=== PATIENT | male | born 1975 | race Caucasian/White ===

== ENCOUNTER 2023-07-26 14:15 | Emergency (ER) | payer OTHER ==
[~2023-07-26] VITALS: Ht 165.1 cm; Wt 105.0 kg
[2023-07-26 14:21] VITALS: BP 150/91; PULSE 112; RESP 18; TEMP 97; O2SAT 95
[2023-07-26] MEDS ORDERED: MUPI22OI30 TP (17:04)
[2023-07-26] MEDS ORDERED: TRIA15OI9 TOP (17:04)
[2023-07-26] MEDS ORDERED: TRAM50TA2 PO ×2 (17:04→17:32)
== END 2023-07-26 17:42 | disposition home or self-care (01) ==
LOC: ER 14:16
DX: S99.921A Unspecified injury of right foot, initial encounter (principal); L03.031 Cellulitis of right toe; E10.9 Type 1 diabetes mellitus without complications; Z88.2 Allergy status to sulfonamides; Z88.1 Allergy status to other antibiotic agents; Z79.899 Other long term (current) drug therapy; X58.XXXA Exposure to other specified factors, initial encounter; Y93.89 Activity, other specified; Y92.89 Other specified places as the place of occurrence of the external cause; Y99.8 Other external cause status
CPT/HCPCS: 73630; 99283; L3260

== ENCOUNTER 2023-10-05 15:49 | Emergency (ER) | payer OTHER ==
[~2023-10-05] VITALS: Ht 165.1 cm; Wt 91.4 kg
[~2023-10-05 15:49] MED LIST: TRAM50TA2 PO; TRIA15OI9 TOP
[2023-10-05 15:58] VITALS: TEMP 97.7
[2023-10-05 19:21] LABS: BASOPHILS # (AUTO) 0.1 X10'3 (0-0.2); BASOPHILS % (AUTO) 0.5 % (0-1); EOSINOPHILS # (AUTO) 0.1 X10'3 (0-0.9); EOSINOPHILS % (AUTO) 1.4 % (0-6); HEMATOCRIT 47.2 % (42.0-52.0); HEMOGLOBIN 16.2 g/dl (14.0-17.9); LYMPHOCYTES # (AUTO) 3.3 X10'3 (1.1-4.8); LYMPHOCYTES % (AUTO) 32.9 % (21-51); MEAN CORPUSCULAR HEMOGLOBIN 30.5 PG (27.0-31.0); MEAN CORPUSCULAR HGB CONC 34.4 g/dL (33.0-36.5); MEAN CORPUSCULAR VOLUME 88.7 FL (78-98); MEAN PLATELET VOLUME 8.4 FL (7.4-10.4); MONOCYTES # (AUTO) 0.8 X10'3 (0-0.9); MONOCYTES % (AUTO) 7.6 % (2-12); NEUTROPHILS # (AUTO) 5.8 X10'3 (1.8-7.7); NEUTROPHILS % (AUTO) 57.6 % (42-75); PLATELET COUNT 279 X10'3 (140-440); RED BLOOD COUNT 5.33 X10'6 (4.70-6.10); WHITE BLOOD COUNT 10.1 X10'3 (4.5-11.0)
[2023-10-05 19:40] LABS: ALANINE AMINOTRANSFERASE 59 U/L (12-78); ALKALINE PHOSPHATASE 95 IU/L (46-116); ANION GAP 7 (8-16); ASPARTATE AMINO TRANSFERASE 39 U/L (10-37); BILIRUBIN,TOTAL 0.4 MG/DL (0.1-1.0); BLOOD UREA NITROGEN 9 MG/DL (7-18); BUN/CREATININE RATIO 11.8 (10.0-20.0); CALCIUM 9.5 MG/DL (8.5-10.1); CHLORIDE 97 MMOL/L (99-107); CREATININE 0.76 MG/DL (0.60-1.10); GLUCOSE 274 MG/DL (70-104); MAGNESIUM 1.9 MG/DL (1.5-2.4); POTASSIUM 3.8 MMOL/L (3.5-5.1); SODIUM 134 MMOL/L (135-145); TOTAL CARBON DIOXIDE 29.6 MMOL/L (24-32); TOTAL PROTEIN 8.1 G/DL (6.4-8.2); eCRCL 101 ML/MIN; eGFR > 90 ML/MIN
[2023-10-05] MEDS ORDERED: CefTRIAXone 2gm/D5W 50ml BAG 50 ML IV SCH (20:15)
[2023-10-05] MEDS ORDERED: CEPH250T PO (20:16)
[2023-10-05] MEDS ORDERED: CefTRIAXone 2gm/D5W 50ml BAG 50 ML IV ONE (20:21)
--- NOTE | 2023-10-05 20:35 | NUR ---
IV INFILTRATED, UNABLE TO FLUSH TO START ROCEPHIN. ATTEMPTED 2ND IV PLACEMENT BUT UNSUCCESSFUL. SPOKE WITH DR COPELAND AND ARCELIA TO SWITCH IV ROCHEPIN TO IM ROCEHIN ADMINISTRATION WITH LIDOCAINE.
[2023-10-05 20:36] VITALS: BP 136/78; PULSE 92; RESP 18; O2SAT 96
[2023-10-05] MEDS ORDERED: CefTRIAXone 1000mg IM Kit (w/lidocaine diluent) IM ONE (20:40)
--- NOTE | 2023-10-05 20:55 | NUR ---
I have reviewed and agree with all assessments performed and documented by Ina.
== END 2023-10-05 21:02 | disposition home or self-care (01) ==
LOC: ER 15:50
DX: G62.9 Polyneuropathy, unspecified (principal)
CPT/HCPCS: 36415; 71045; 80053; 82948; 83605; 83735; 84145; 85025; 87040; 93005; 96372; 99285; J0696

== ENCOUNTER 2024-01-21 17:00 | Inpatient (IN) | payer OTHER ==
[~2024-01-21] VITALS: Ht 165.1 cm; Wt 91.3 kg
[~2024-01-21 17:00] MED LIST changes: +CEPH250T PO
[2024-01-21 18:06] LABS: BASOPHILS # (AUTO) 0.1 X10'3 (0-0.2); BASOPHILS % (AUTO) 0.8 % (0-1); EOSINOPHILS # (AUTO) 0.1 X10'3 (0-0.9); EOSINOPHILS % (AUTO) 1.2 % (0-6); HEMATOCRIT 42.4 % (42.0-52.0); HEMOGLOBIN 14.4 g/dl (14.0-17.9); MEAN CORPUSCULAR HEMOGLOBIN 30.1 PG (27.0-31.0); MEAN CORPUSCULAR HGB CONC 34.1 g/dL (33.0-36.5); MEAN CORPUSCULAR VOLUME 88.5 FL (78-98); MEAN PLATELET VOLUME 8.2 FL (7.4-10.4); MONOCYTES # (AUTO) 0.8 X10'3 (0-0.9); MONOCYTES % (AUTO) 8.2 % (2-12); NEUTROPHILS # (AUTO) 5.7 X10'3 (1.8-7.7); NEUTROPHILS % (AUTO) 58.8 % (42-75); PLATELET COUNT 244 X10'3 (140-440); RED BLOOD COUNT 4.79 X10'6 (4.70-6.10); WHITE BLOOD COUNT 9.8 X10'3 (4.5-11.0)
[2024-01-21 18:26] LABS: ALBUMIN 3.4 G/DL (3.4-5.0); ANION GAP 8 (8-16); BLOOD UREA NITROGEN 8 MG/DL (7-18); BUN/CREATININE RATIO 8.1 (10.0-20.0); CALCIUM 8.3 MG/DL (8.5-10.1); CHLORIDE 100 MMOL/L (99-107); CREATININE 0.99 MG/DL (0.60-1.10); POTASSIUM 3.9 MMOL/L (3.5-5.1); SODIUM 135 MMOL/L (135-145); eCRCL 78 ML/MIN; eGFR 80 ML/MIN
[2024-01-21 18:38] LABS: GLUCOSE 498 MG/DL (70-104)
[2024-01-21] MEDS ORDERED: DEXTROSE 15 GM of carb/4 tabs (each vial/BOTTLE has 4 tablets) PO PRN ×2 (19:15)
[2024-01-21] MEDS ORDERED: dextrose 50%-water 50ml dispensing syringe IV PRN ×2 (19:15)
[2024-01-21] MEDS ORDERED: glucagon, human recombinant 1mg kit SUBCUT PRN (19:15)
[2024-01-21 19:28] LABS: C-REACTIVE PROTEIN 0.71 MG/DL (0.0-0.5)
[2024-01-21] MEDS: normal saline 1000ml 1,000 ML IV ONE (20:05)
[2024-01-21] MEDS ORDERED: temazepam 15mg capsule PO PRN (21:00)
[2024-01-21] MEDS: normal saline 1000ML IV soln IVB ONE (21:14)
[2024-01-21] MEDS: piperacillin/tazo 3.375gm/50ml 50 ML IV ONE (21:15)
[2024-01-21] MEDS ORDERED: magnesium 4gm in 100ml NS 100 ML IV PRN (21:50)
[2024-01-21] MEDS ORDERED: magnesium Cl slow-release 64mg tablet PO PRN (21:50)
[2024-01-21] MEDS ORDERED: potassium Cl 40MEQ/1/2NS 520ml 520 ML IV PRN (21:50)
[2024-01-21] MEDS ORDERED: potassium Cl 20 mEq SR tablet PO PRN ×2 (21:50)
[2024-01-21] MEDS ORDERED: morphine 2 MG/ML inj. syringe IV PRN (21:50)
[2024-01-21] MEDS ORDERED: magnesium hydroxide 30ml (MOM) UD suspension PO PRN (21:50)
[2024-01-21] MEDS ORDERED: ondansetron/PF 4mg/2ml inj IV PRN (21:50)
[2024-01-21] MEDS ORDERED: mag hydrox/Alum hydrox/simeth 30ml oral suspension PO PRN (21:50)
[2024-01-21 22:17] LABS: HEMOGLOBIN A1C 11.3 % (4.5-6.2)
[2024-01-21] MEDS: insulin glargine (Lantus) pen - multi-dose SQ SCH (22:24)
[2024-01-21] MEDS: insulin Lispro (HumaLOG) vial - multi-dose SQ SCH (22:30)
[2024-01-21] MEDS: vancomycin/NS 1 GM ADD-VANTAGE 250 ML IV ONE (22:32)
[2024-01-21 23:30] VITALS: BP 139/88; PULSE 93; RESP 16; TEMP 98.3; O2SAT 93; O2SAT 96
[2024-01-22] VITALS (7 sets, daily range): BP systolic 112–128; BP diastolic 73–76; PULSE 80–92; RESP 16–18; TEMP 97.7–98.4; O2SAT 92–97
[2024-01-22] MEDS: VANCOMYCIN 750MG IV in NS 250 ML IV ONE (00:30)
[2024-01-22] MEDS: normal saline 1000ml 1,000 ML IV SCH (00:32)
[2024-01-22] MEDS: HYDROcodone/acetaminophen 5mg/325mg tablet PO PRN (00:38)
[2024-01-22] MEDS ORDERED: DEXTROSE 15 GM of carb/4 tabs (each vial/BOTTLE has 4 tablets) PO PRN ×2 (01:10)
[2024-01-22] MEDS: MESSAGE TO PHARMACY PO ONE (01:10)
[2024-01-22] MEDS ORDERED: glucagon, human recombinant 1mg kit SUBCUT PRN (01:10)
[2024-01-22] MEDS ORDERED: insulin Lispro (HumaLOG) vial - multi-dose SQ SCH (01:10)
[2024-01-22] MEDS ORDERED: dextrose 50%-water 50ml dispensing syringe IV PRN ×2 (01:10)
[2024-01-22] MEDS: piperacillin/tazo 4.5gm/100ml 100 ML IV SCH (03:06)
[2024-01-22 07:38] LABS: BASOPHILS % (AUTO) 0.4 % (0-1); EOSINOPHILS # (AUTO) 0.1 X10'3 (0-0.9); EOSINOPHILS % (AUTO) 1.6 % (0-6); HEMOGLOBIN 13.7 g/dl (14.0-17.9); LYMPHOCYTES # (AUTO) 2.7 X10'3 (1.1-4.8); LYMPHOCYTES % (AUTO) 32.1 % (21-51); MEAN CORPUSCULAR HEMOGLOBIN 30.2 PG (27.0-31.0); MEAN CORPUSCULAR HGB CONC 34.3 g/dL (33.0-36.5); MEAN CORPUSCULAR VOLUME 88.2 FL (78-98); MONOCYTES # (AUTO) 0.8 X10'3 (0-0.9); MONOCYTES % (AUTO) 9.5 % (2-12); NEUTROPHILS # (AUTO) 4.8 X10'3 (1.8-7.7); NEUTROPHILS % (AUTO) 56.4 % (42-75); PLATELET COUNT 239 X10'3 (140-440); RED BLOOD COUNT 4.53 X10'6 (4.70-6.10); WHITE BLOOD COUNT 8.4 X10'3 (4.5-11.0)
[2024-01-22 07:54] LABS: ALBUMIN 2.9 G/DL (3.4-5.0); ANION GAP 6 (8-16); BLOOD UREA NITROGEN 9 MG/DL (7-18); BUN/CREATININE RATIO 12.9 (10.0-20.0); CALCIUM 7.6 MG/DL (8.5-10.1); CHLORIDE 107 MMOL/L (99-107); CHOL/HDL RATIO 4.9 (0.00-4.99); CHOLESTEROL 177 MG/DL (0-200); GLUCOSE 276 MG/DL (70-104); HDL CHOLESTEROL 36 MG/DL (35-60); LDL CHOLESTEROL 95 MG/DL (50-100); POTASSIUM 3.8 MMOL/L (3.5-5.1); SODIUM 138 MMOL/L (135-145); TOTAL CARBON DIOXIDE 24.9 MMOL/L (24-32); TRIGLYCERIDES 285 MG/DL (20-135); eCRCL 110 ML/MIN; eGFR > 90 ML/MIN
[2024-01-22 08:58] LABS: APTT 24 SECONDS (22-32); PROTHROMBIN TIME 10.4 SECONDS (9.0-12.0)
[2024-01-22] MEDS: heparin, porcine 5000 units/ml vial SQ SCH (09:49)
[2024-01-22] MEDS: lisinopril 10 MG tablet PO SCH (09:50)
[2024-01-22] MEDS: docusate sod 100mg capsule PO SCH (09:52)
[2024-01-22] MEDS: insulin glargine (Lantus) pen - multi-dose SQ SCH (10:01)
[2024-01-22] MEDS ORDERED: VANCOmycin 1250MG/NS 250ml Bag 250 ML IV SCH (11:00)
[2024-01-22] MEDS ORDERED: iohexol 350MG/ML 100ml bottle IV ONE (14:59)
[2024-01-22] MEDS ORDERED: LISI10TA27 PO (15:52)
[2024-01-22] MEDS ORDERED: METF-438 PO (15:54)
[2024-01-22] MEDS ORDERED: NPH,100I SQ (15:54)
[2024-01-22] MEDS ORDERED: INSU100V5 (15:54)
[2024-01-22 16:44] LABS: BILIRUBIN,URINE NEGATIVE (Neg); CLARITY,URINE CLEAR (Clear); COLOR,URINE YELLOW (Yellow); GLUCOSE, URINE >=1000 mg/dl (Neg); KETONES,URINE TRACE mg/dl (Neg); LEUKOCYTE ESTERASE ,URINE NEGATIVE (Neg); NITRITES, URINE NEGATIVE (Neg); OCCULT BLOOD,URINE NEGATIVE (Neg); PROTEIN,URINE NEGATIVE (Neg)
[2024-01-22 16:51] LABS: UA COLLECTION TYPE CLN CATCH MIDSTREAM
[2024-01-22 16:52] LABS: BACTERIA,URINE NONE SEEN /HPF (Neg); RBC,URINE 0-2 /HPF (0-2); SQUAMOUS EPITHELIAL CELL,UR FEW /LPF (FEW); WBC,URINE 0-4 /HPF (0-4)
[2024-01-22 16:53] LABS: URINE AMPHETAMINE SCREEN NEGATIVE (Neg); URINE METHADONE SCREEN NEGATIVE (Neg)
[2024-01-22 16:54] LABS: URINE BARBITUATE SCREEN NEGATIVE (Neg); URINE BENZODIAZEPINES SCREEN NEGATIVE (Neg); URINE CANNABINOID SCREEN NEGATIVE (Neg); URINE COCAINE SCREEN NEGATIVE (Neg); URINE OPIATE SCREEN POSITIVE (Neg); URINE PHENCYCLIDINE SCREEN NEGATIVE (Neg)
[2024-01-22] MEDS: acetaminophen 325mg tablet PO PRN (19:48)
[2024-01-22] MEDS: atorvastatin 20mg tablet PO SCH (19:48)
[2024-01-22] MEDS ORDERED: insulin glargine (Lantus) pen - multi-dose SQ SCH (21:00)
[2024-01-23 02:04] LABS: BASOPHILS % (AUTO) 0.4 % (0-1); EOSINOPHILS # (AUTO) 0.2 X10'3 (0-0.9); EOSINOPHILS % (AUTO) 1.8 % (0-6); HEMATOCRIT 39.8 % (42.0-52.0); HEMOGLOBIN 13.6 g/dl (14.0-17.9); LYMPHOCYTES # (AUTO) 3.3 X10'3 (1.1-4.8); MEAN CORPUSCULAR HEMOGLOBIN 30.2 PG (27.0-31.0); MEAN CORPUSCULAR HGB CONC 34.1 g/dL (33.0-36.5); MEAN CORPUSCULAR VOLUME 88.4 FL (78-98); MEAN PLATELET VOLUME 7.9 FL (7.4-10.4); MONOCYTES # (AUTO) 0.8 X10'3 (0-0.9); MONOCYTES % (AUTO) 9.2 % (2-12); NEUTROPHILS # (AUTO) 4.5 X10'3 (1.8-7.7); NEUTROPHILS % (AUTO) 50.6 % (42-75); PLATELET COUNT 240 X10'3 (140-440); RED CELL DISTRIBUTION WIDTH 13.2 % (11.5-14.5); WHITE BLOOD COUNT 8.8 X10'3 (4.5-11.0)
[2024-01-23 02:19] LABS: ALBUMIN 2.7 G/DL (3.4-5.0); ANION GAP 4 (8-16); BLOOD UREA NITROGEN 11 MG/DL (7-18); BUN/CREATININE RATIO 13.9 (10.0-20.0); CALCIUM 8.5 MG/DL (8.5-10.1); CHLORIDE 106 MMOL/L (99-107); CREATININE 0.79 MG/DL (0.60-1.10); GLUCOSE 178 MG/DL (70-104); POTASSIUM 3.9 MMOL/L (3.5-5.1); SODIUM 140 MMOL/L (135-145); TOTAL CARBON DIOXIDE 29.7 MMOL/L (24-32); eCRCL 97 ML/MIN; eGFR > 90 ML/MIN
[2024-01-23 06:00] VITALS: BP 120/80; PULSE 81; RESP 16; TEMP 97.8; O2SAT 95
[2024-01-23 08:30] VITALS: RESP 18; O2SAT 96
[2024-01-23 10:00] VITALS: BP 142/78; PULSE 93; RESP 16; TEMP 98; O2SAT 95
[2024-01-23] MEDS ORDERED: ATOR20TA66 PO (12:01)
[2024-01-23] MEDS ORDERED: MESSAGE TO NURSING PO NR (15:38)
== END 2024-01-23 15:38 | disposition home health service (06) | DRG 872 ==
LOC: ER 17:01 → ED HOLD 21:56 → SUR 3N 23:43
PROVIDERS: ADMIT Surgery Surgical Critical Care; ATTEND Internal Medicine
PROC: BW211ZZ Computerized Tomography (CT Scan) of Abdomen and Pelvis using Low Osmolar Contrast (ICD-10-PCS; principal; 2024-01-22)
DX: A41.9 Sepsis, unspecified organism (principal); E11.621 Type 2 diabetes mellitus with foot ulcer; E11.42 Type 2 diabetes mellitus with diabetic polyneuropathy; I25.10 Atherosclerotic heart disease of native coronary artery without angina pectoris; I10 Essential (primary) hypertension; J44.9 Chronic obstructive pulmonary disease, unspecified; F41.9 Anxiety disorder, unspecified; L40.9 Psoriasis, unspecified; E78.00 Pure hypercholesterolemia, unspecified; S91.301A Unspecified open wound, right foot, initial encounter; L97.519 Non-pressure chronic ulcer of other part of right foot with unspecified severity; X58.XXXA Exposure to other specified factors, initial encounter; Y93.89 Activity, other specified; Y92.89 Other specified places as the place of occurrence of the external cause; Y99.8 Other external cause status; Z88.1 Allergy status to other antibiotic agents; Z79.84 Long term (current) use of oral hypoglycemic drugs; Z79.4 Long term (current) use of insulin; Z88.2 Allergy status to sulfonamides; Z88.8 Allergy status to other drugs, medicaments and biological substances; Z79.899 Other long term (current) drug therapy
CPT/HCPCS: 36415; 71045; 73630; 74174; 80048; 80061; 80202; 80305; 81001; 82948; 83036; 83605; 83880; 84145; 85025; 85610; 85651; 85730; 86140; 87040; 87081; 93970; 96360; 99285; A6258; G0378; J1644; J1815; J2543; J3370; J3490; J7030; J7050; Q9967

== ENCOUNTER 2024-03-02 14:52 | Inpatient (IN) | payer OTHER ==
[~2024-03-02] VITALS: Ht 165.1 cm; Wt 86.4 kg
[~2024-03-02 14:52] MED LIST changes: +ATOR20TA66 PO; -CEPH250T PO; +INSU100V5; +LISI10TA27 PO; +METF-438 PO; +NPH,100I SQ
[2024-03-02 15:44] LABS: BASOPHILS % (AUTO) 0.3 % (0-1); EOSINOPHILS % (AUTO) 0.3 % (0-6); HEMATOCRIT 44.5 % (42.0-52.0); HEMOGLOBIN 15.3 g/dl (14.0-17.9); LYMPHOCYTES # (AUTO) 2.3 X10'3 (1.1-4.8); LYMPHOCYTES % (AUTO) 17.2 % (21-51); MEAN CORPUSCULAR HEMOGLOBIN 30.3 PG (27.0-31.0); MEAN CORPUSCULAR HGB CONC 34.4 g/dL (33.0-36.5); MEAN CORPUSCULAR VOLUME 88.3 FL (78-98); MONOCYTES # (AUTO) 1.3 X10'3 (0-0.9); MONOCYTES % (AUTO) 9.9 % (2-12); NEUTROPHILS # (AUTO) 9.5 X10'3 (1.8-7.7); NEUTROPHILS % (AUTO) 72.3 % (42-75); PLATELET COUNT 261 X10'3 (140-440); RED BLOOD COUNT 5.04 X10'6 (4.70-6.10); RED CELL DISTRIBUTION WIDTH 13.1 % (11.5-14.5); WHITE BLOOD COUNT 13.2 X10'3 (4.5-11.0)
[2024-03-02 16:01] LABS: ALANINE AMINOTRANSFERASE 35 U/L (12-78); ALBUMIN 3.3 G/DL (3.4-5.0); ALBUMIN/GLOBULIN RATIO 0.7 (1.1-1.5); ALKALINE PHOSPHATASE 95 IU/L (46-116); ANION GAP 11 (8-16); ASPARTATE AMINO TRANSFERASE 19 U/L (10-37); BILIRUBIN,TOTAL 0.6 MG/DL (0.1-1.0); BLOOD UREA NITROGEN 13 MG/DL (7-18); BUN/CREATININE RATIO 12.3 (10.0-20.0); C-REACTIVE PROTEIN 24.09 MG/DL (0.0-0.5); CALCIUM 9.3 MG/DL (8.5-10.1); CHLORIDE 95 MMOL/L (99-107); CREATININE 1.06 MG/DL (0.60-1.10); POTASSIUM 3.8 MMOL/L (3.5-5.1); SODIUM 132 MMOL/L (135-145); TOTAL CARBON DIOXIDE 25.6 MMOL/L (24-32); TOTAL PROTEIN 7.9 G/DL (6.4-8.2); eCRCL 73 ML/MIN; eGFR 74 ML/MIN
[2024-03-02 16:06] LABS: GLUCOSE 442 MG/DL (70-104)
[2024-03-02] MEDS ORDERED: acetaminophen 325mg tablet PO PRN ×2 (17:10)
[2024-03-02] MEDS ORDERED: acetaminophen 650mg rectal suppository RC PRN (17:10)
[2024-03-02] MEDS ORDERED: ondansetron 4mg rapidly disintigrating tab PO PRN (17:10)
[2024-03-02] MEDS ORDERED: diphenhydrAMINE 50 mg/ml inj IV PRN (17:10)
[2024-03-02] MEDS ORDERED: bisacodyl 10mg suppository rectal RC PRN (17:10)
[2024-03-02] MEDS ORDERED: diphenhydrAMINE 25mg capsule PO PRN (17:10)
[2024-03-02] MEDS ORDERED: magnesium hydroxide 30ml (MOM) UD suspension PO PRN (17:10)
[2024-03-02] MEDS: normal saline 1000ml 1,000 ML IV SCH (17:10)
[2024-03-02] MEDS ORDERED: morphine 2 MG/ML inj. syringe IV PRN ×2 (17:10)
[2024-03-02] MEDS ORDERED: mag hydrox/Alum hydrox/simeth 30ml oral suspension PO PRN (17:10)
[2024-03-02] MEDS ORDERED: glucagon, human recombinant 1mg kit SUBCUT PRN (17:40)
[2024-03-02] MEDS ORDERED: dextrose 50%-water 50ml dispensing syringe IV PRN ×2 (17:40)
[2024-03-02] MEDS ORDERED: DEXTROSE 15 GM of carb/4 tabs (each vial/BOTTLE has 4 tablets) PO PRN ×2 (17:40)
[2024-03-02 17:46] LABS: APTT 25 SECONDS (22-32); PROTHROMBIN TIME 10.8 SECONDS (9.0-12.0)
[2024-03-02 18:06] LABS: HEMOGLOBIN A1C 11.1 % (4.5-6.2)
[2024-03-02 18:09] LABS: MAGNESIUM 1.6 MG/DL (1.5-2.4); PHOSPHORUS 2.7 MG/DL (2.3-4.5); PRO BRAIN NATRIURETIC PEPTIDE 208 PG/ML (0-125)
[2024-03-02] MEDS: vancomycin/NS 1 GM ADD-VANTAGE 250 ML X 1 DOSE IV ONE (18:11)
[2024-03-02 19:20] LABS: CREATINE KINASE 82 U/L (39-308); LIPASE 44 U/L (16-77); THYROID STIMULATING HORMONE 2.48 ulU/ml (0.34-4.50)
[2024-03-02] MEDS: piperacillin/tazo 3.375gm/50ml 50 ML IV ONE (19:51)
[2024-03-02] MEDS: docusate sod 100mg capsule PO SCH (20:00)
[2024-03-02] MEDS ORDERED: VANCOMYCIN 1,500MG inj. 1,500 MG in normal saline 500ml IV soln 300 ML IV ONE (20:00)
[2024-03-02] MEDS ORDERED: vancomycin/NS 1 GM ADD-VANTAGE 250 ML IV SCH (20:00)
[2024-03-02] MEDS: HYDROcodone/acetaminophen 10/325mg tab PO PRN (20:52)
[2024-03-02] MEDS ORDERED: temazepam 15mg capsule PO PRN (21:00)
[2024-03-02 21:40] VITALS: BP 123/82; PULSE 101; RESP 16; TEMP 98.5; O2SAT 97
[2024-03-02] MEDS: insulin Lispro (HumaLOG) vial - multi-dose SQ SCH (21:48)
[2024-03-02] MEDS: insulin glargine (Lantus) pen - multi-dose SQ SCH (21:50)
[2024-03-02 22:05] VITALS: BP 132/83; PULSE 102; RESP 16; TEMP 96.5; O2SAT 95
[2024-03-02] MEDS: pneumococcal 23-VAL P-sac vacc 25 mcg/0.5ml vial IMVAC ONE (23:15)
[2024-03-02] MEDS: piperacillin/tazo 4.5gm/100ml 100 ML IV SCH (23:56)
[2024-03-02] MEDS: heparin, porcine 5000 units/ml vial SQ SCH (23:59)
[2024-03-03] VITALS (8 sets, daily range): BP systolic 107–128; BP diastolic 67–81; PULSE 87–100; RESP 13–18; TEMP 96–98.3; O2SAT 94–97
[2024-03-03 00:08] LABS: BILIRUBIN,URINE NEGATIVE (Neg); CLARITY,URINE CLEAR (Clear); COLOR,URINE YELLOW (Yellow); GLUCOSE, URINE >=1000 mg/dl (Neg); KETONES,URINE 15 mg/dl (Neg); LEUKOCYTE ESTERASE ,URINE NEGATIVE (Neg); NITRITES, URINE NEGATIVE (Neg); OCCULT BLOOD,URINE NEGATIVE (Neg); PH,URINE 5.5 (4.8-8.0); PROTEIN,URINE NEGATIVE (Neg); UROBILINOGEN,URINE 0.2 E.U/dL (0.2-1.0)
[2024-03-03 00:14] LABS: UA COLLECTION TYPE VOIDED
[2024-03-03 00:32] LABS: MUCUS STRANDS FEW /LPF (Neg)
[2024-03-03 00:33] LABS: SQUAMOUS EPITHELIAL CELL,UR FEW /LPF (FEW)
[2024-03-03 00:34] LABS: BACTERIA,URINE FEW /HPF (Neg); RBC,URINE 0-2 /HPF (0-2); TRANSITIONAL EPI CELLS,URINE FEW /HPF; WBC,URINE 0-4 /HPF (0-4)
[2024-03-03 00:35] LABS: COARSE GRANULAR CAST 0-3 /LPF (NEGATIVE)
[2024-03-03] MEDS: HYDROcodone/acetaminophen 5mg/325mg tablet PO PRN (01:29)
[2024-03-03] MEDS: VANCOmycin 1250MG/NS 250ml Bag 250 ML IV SCH (05:08)
[2024-03-03 06:38] LABS: BASOPHILS % (AUTO) 0.4 % (0-1); EOSINOPHILS # (AUTO) 0.1 X10'3 (0-0.9); EOSINOPHILS % (AUTO) 1.2 % (0-6); HEMATOCRIT 40.6 % (42.0-52.0); HEMOGLOBIN 14.2 g/dl (14.0-17.9); LYMPHOCYTES # (AUTO) 2.2 X10'3 (1.1-4.8); LYMPHOCYTES % (AUTO) 20.9 % (21-51); MEAN CORPUSCULAR HEMOGLOBIN 30.6 PG (27.0-31.0); MEAN CORPUSCULAR HGB CONC 34.8 g/dL (33.0-36.5); MEAN CORPUSCULAR VOLUME 87.9 FL (78-98); MONOCYTES # (AUTO) 1.4 X10'3 (0-0.9); MONOCYTES % (AUTO) 13.2 % (2-12); NEUTROPHILS # (AUTO) 6.7 X10'3 (1.8-7.7); NEUTROPHILS % (AUTO) 64.3 % (42-75); PLATELET COUNT 229 X10'3 (140-440); RED BLOOD COUNT 4.62 X10'6 (4.70-6.10); WHITE BLOOD COUNT 10.4 X10'3 (4.5-11.0)
[2024-03-03 07:06] LABS: ALANINE AMINOTRANSFERASE 31 U/L (12-78); ALBUMIN 2.7 G/DL (3.4-5.0); ALBUMIN/GLOBULIN RATIO 0.6 (1.1-1.5); ALKALINE PHOSPHATASE 82 IU/L (46-116); ANION GAP 8 (8-16); ASPARTATE AMINO TRANSFERASE 22 U/L (10-37); BILIRUBIN,TOTAL 0.6 MG/DL (0.1-1.0); BLOOD UREA NITROGEN 12 MG/DL (7-18); CALCIUM 8.9 MG/DL (8.5-10.1); CHLORIDE 99 MMOL/L (99-107); CHOL/HDL RATIO 4.2 (0.00-4.99); CHOLESTEROL 150 MG/DL (0-200); GLUCOSE 289 MG/DL (70-104); HDL CHOLESTEROL 36 MG/DL (35-60); LDL CHOLESTEROL 73 MG/DL (50-100); POTASSIUM 3.6 MMOL/L (3.5-5.1); SODIUM 135 MMOL/L (135-145); TOTAL CARBON DIOXIDE 28.5 MMOL/L (24-32); TOTAL PROTEIN 6.9 G/DL (6.4-8.2); TRIGLYCERIDES 299 MG/DL (20-135); eCRCL 96 ML/MIN; eGFR > 90 ML/MIN
[2024-03-03] MEDS: pantoprazole 40mg Tablet.DR PO SCH (07:19)
[2024-03-03] MEDS ORDERED: GADOTERATE MEGLUMINE 7.5 MMOL/15 ML VIAL IV ONE (12:33)
[2024-03-03] MEDS: pneumococcal 23-VAL P-sac vacc 25 mcg/0.5ml vial IMVAC ONE (14:00)
[2024-03-03] MEDS: vancomycin/NS 1 GM ADD-VANTAGE 250 ML IV SCH (14:15)
[2024-03-03] MEDS: insulin Lispro (HumaLOG) vial - multi-dose SQ SCH (17:18)
[2024-03-03] MEDS: ondansetron/PF 4mg/2ml inj IV PRN (20:23)
[2024-03-04 06:00] VITALS: BP 115/71; PULSE 89; RESP 13; TEMP 96.2; O2SAT 94
[2024-03-04 06:01] LABS: BASOPHILS % (AUTO) 0.3 % (0-1); EOSINOPHILS # (AUTO) 0.2 X10'3 (0-0.9); EOSINOPHILS % (AUTO) 1.7 % (0-6); HEMATOCRIT 37.2 % (42.0-52.0); HEMOGLOBIN 12.8 g/dl (14.0-17.9); LYMPHOCYTES # (AUTO) 1.8 X10'3 (1.1-4.8); LYMPHOCYTES % (AUTO) 19.1 % (21-51); MEAN CORPUSCULAR HEMOGLOBIN 30.5 PG (27.0-31.0); MEAN CORPUSCULAR HGB CONC 34.5 g/dL (33.0-36.5); MEAN CORPUSCULAR VOLUME 88.4 FL (78-98); MEAN PLATELET VOLUME 7.9 FL (7.4-10.4); MONOCYTES # (AUTO) 1.2 X10'3 (0-0.9); MONOCYTES % (AUTO) 12.2 % (2-12); NEUTROPHILS # (AUTO) 6.3 X10'3 (1.8-7.7); NEUTROPHILS % (AUTO) 66.7 % (42-75); PLATELET COUNT 234 X10'3 (140-440); RED BLOOD COUNT 4.21 X10'6 (4.70-6.10); RED CELL DISTRIBUTION WIDTH 12.9 % (11.5-14.5); WHITE BLOOD COUNT 9.5 X10'3 (4.5-11.0)
[2024-03-04 06:22] LABS: ALANINE AMINOTRANSFERASE 30 U/L (12-78); ALBUMIN 2.4 G/DL (3.4-5.0); ALBUMIN/GLOBULIN RATIO 0.6 (1.1-1.5); ALKALINE PHOSPHATASE 79 IU/L (46-116); ANION GAP 8 (8-16); ASPARTATE AMINO TRANSFERASE 17 U/L (10-37); BILIRUBIN,TOTAL 0.5 MG/DL (0.1-1.0); BLOOD UREA NITROGEN 11 MG/DL (7-18); BUN/CREATININE RATIO 16.4 (10.0-20.0); CALCIUM 8.4 MG/DL (8.5-10.1); CHLORIDE 103 MMOL/L (99-107); CREATININE 0.67 MG/DL (0.60-1.10); GLUCOSE 236 MG/DL (70-104); POTASSIUM 3.6 MMOL/L (3.5-5.1); SODIUM 138 MMOL/L (135-145); TOTAL CARBON DIOXIDE 27.2 MMOL/L (24-32); TOTAL PROTEIN 6.3 G/DL (6.4-8.2); eCRCL 115 ML/MIN; eGFR > 90 ML/MIN
[2024-03-04 10:00] VITALS: BP 102/63; PULSE 93; RESP 16; TEMP 98.9; O2SAT 96
[2024-03-04] MEDS: VANCOMYCIN LEVEL IV ONE (12:35)
[2024-03-04 18:00] VITALS: BP 115/72; PULSE 83; RESP 20; TEMP 98.2; O2SAT 95
[2024-03-04 20:20] VITALS: RESP 18
[2024-03-04] MEDS: VANCOmycin 1250MG/NS 250ml Bag 250 ML IV SCH (21:21)
[2024-03-04 22:00] VITALS: BP 120/77; PULSE 87; RESP 16; TEMP 98.5; O2SAT 93
[2024-03-05 05:30] VITALS: BP 133/83; PULSE 90; RESP 16; TEMP 98; O2SAT 98
[2024-03-05 06:35] LABS: BASOPHILS # (AUTO) 0.1 X10'3 (0-0.2); BASOPHILS % (AUTO) 0.9 % (0-1); EOSINOPHILS # (AUTO) 0.1 X10'3 (0-0.9); EOSINOPHILS % (AUTO) 1.2 % (0-6); HEMATOCRIT 39.2 % (42.0-52.0); HEMOGLOBIN 13.7 g/dl (14.0-17.9); LYMPHOCYTES # (AUTO) 2.5 X10'3 (1.1-4.8); LYMPHOCYTES % (AUTO) 25.3 % (21-51); MEAN CORPUSCULAR HEMOGLOBIN 30.5 PG (27.0-31.0); MEAN CORPUSCULAR HGB CONC 34.9 g/dL (33.0-36.5); MEAN CORPUSCULAR VOLUME 87.4 FL (78-98); MEAN PLATELET VOLUME 8.4 FL (7.4-10.4); MONOCYTES % (AUTO) 10.4 % (2-12); NEUTROPHILS # (AUTO) 6.2 X10'3 (1.8-7.7); NEUTROPHILS % (AUTO) 62.2 % (42-75); PLATELET COUNT 263 X10'3 (140-440); RED BLOOD COUNT 4.49 X10'6 (4.70-6.10); RED CELL DISTRIBUTION WIDTH 12.9 % (11.5-14.5); WHITE BLOOD COUNT 9.9 X10'3 (4.5-11.0)
[2024-03-05 06:54] LABS: ALANINE AMINOTRANSFERASE 31 U/L (12-78); ALBUMIN 2.6 G/DL (3.4-5.0); ALBUMIN/GLOBULIN RATIO 0.6 (1.1-1.5); ALKALINE PHOSPHATASE 92 IU/L (46-116); ANION GAP 5 (8-16); ASPARTATE AMINO TRANSFERASE 22 U/L (10-37); BILIRUBIN,TOTAL 0.4 MG/DL (0.1-1.0); BLOOD UREA NITROGEN 6 MG/DL (7-18); CALCIUM 8.7 MG/DL (8.5-10.1); CHLORIDE 102 MMOL/L (99-107); GLUCOSE 215 MG/DL (70-104); POTASSIUM 3.3 MMOL/L (3.5-5.1); SODIUM 138 MMOL/L (135-145); TOTAL PROTEIN 6.9 G/DL (6.4-8.2); eCRCL 128 ML/MIN; eGFR > 90 ML/MIN
[2024-03-05] MEDS ORDERED: HYDR-3965 PO (09:45)
[2024-03-05] MEDS ORDERED: AMOX-580 PO (09:45)
[2024-03-05 10:00] VITALS: BP 122/83; PULSE 84; RESP 16; TEMP 98.4; O2SAT 98
[2024-03-05] MEDS ORDERED: VANCOMYCIN LEVEL IV ONE (20:30)
[2024-03-10 12:21] LABS: HBSAG SCREEN Negative (Negative)
== END 2024-03-05 11:35 | disposition home health service (06) | DRG 872 ==
LOC: ER 14:53 → ED HOLD 17:13 → UNDOADMIN 17:13 → ED HOLD 20:23 → SUR 3N 21:35 → ED HOLD 21:35
PROVIDERS: ADMIT Family Medicine; ATTEND Family Medicine
PROC: 3E0334Z Introduction of Serum, Toxoid and Vaccine into Peripheral Vein, Percutaneous Approach (ICD-10-PCS; principal; 2024-03-03)
DX: A41.9 Sepsis, unspecified organism (principal); E87.1 Hypo-osmolality and hyponatremia; L03.115 Cellulitis of right lower limb; E78.5 Hyperlipidemia, unspecified; E11.42 Type 2 diabetes mellitus with diabetic polyneuropathy; G89.4 Chronic pain syndrome; E78.00 Pure hypercholesterolemia, unspecified; L40.9 Psoriasis, unspecified; K76.0 Fatty (change of) liver, not elsewhere classified; J44.9 Chronic obstructive pulmonary disease, unspecified; I10 Essential (primary) hypertension; S91.104A Unspecified open wound of right lesser toe(s) without damage to nail, initial encounter; X58.XXXA Exposure to other specified factors, initial encounter; Z88.1 Allergy status to other antibiotic agents; Z88.2 Allergy status to sulfonamides; Z91.018 Allergy to other foods; Z79.899 Other long term (current) drug therapy; Z87.891 Personal history of nicotine dependence; Z90.49 Acquired absence of other specified parts of digestive tract; Y93.89 Activity, other specified; Y92.89 Other specified places as the place of occurrence of the external cause; Y99.8 Other external cause status
CPT/HCPCS: 36415; 73720; 80053; 80061; 80202; 81001; 81003; 82550; 82948; 83036; 83605; 83690; 83735; 83880; 84100; 84443; 85025; 85610; 85651; 85730; 86140; 86706; 87040; 87081; 87340; 90732; 97161; 97530; 99285; A6250; A6449; A9575; G0378; J1644; J1815; J2405; J2543; J3370; J7030

== ENCOUNTER 2024-03-20 16:40 | Emergency (ER) | payer OTHER ==
[~2024-03-20] VITALS: Ht 172.7 cm; Wt 74.0 kg
[~2024-03-20 16:40] MED LIST changes: +AMOX-580 PO; +HYDR-3965 PO; -METF-438 PO
[2024-03-20 19:07] LABS: BASOPHILS # (AUTO) 0.1 X10'3 (0-0.2); BASOPHILS % (AUTO) 0.8 % (0-1); EOSINOPHILS # (AUTO) 0.1 X10'3 (0-0.9); EOSINOPHILS % (AUTO) 1.3 % (0-6); HEMATOCRIT 43.4 % (42.0-52.0); HEMOGLOBIN 15.1 g/dl (14.0-17.9); MEAN CORPUSCULAR HEMOGLOBIN 30.6 PG (27.0-31.0); MEAN CORPUSCULAR HGB CONC 34.8 g/dL (33.0-36.5); MEAN CORPUSCULAR VOLUME 87.7 FL (78-98); MONOCYTES % (AUTO) 8.9 % (2-12); NEUTROPHILS # (AUTO) 6.6 X10'3 (1.8-7.7); PLATELET COUNT 364 X10'3 (140-440); RED BLOOD COUNT 4.95 X10'6 (4.70-6.10); WHITE BLOOD COUNT 10.9 X10'3 (4.5-11.0)
[2024-03-20 19:21] LABS: APTT 23 SECONDS (22-32); PROTHROMBIN TIME 10.1 SECONDS (9.0-12.0)
[2024-03-20 19:35] LABS: ALANINE AMINOTRANSFERASE 32 U/L (12-78); ALBUMIN 3.9 G/DL (3.4-5.0); ALBUMIN/GLOBULIN RATIO 0.8 (1.1-1.5); ALKALINE PHOSPHATASE 106 IU/L (46-116); ANION GAP 7 (8-16); ASPARTATE AMINO TRANSFERASE 12 U/L (10-37); BILIRUBIN,TOTAL 0.5 MG/DL (0.1-1.0); BLOOD UREA NITROGEN 14 MG/DL (7-18); BUN/CREATININE RATIO 17.7 (10.0-20.0); CHLORIDE 97 MMOL/L (99-107); CREATININE 0.79 MG/DL (0.60-1.10); POTASSIUM 4.6 MMOL/L (3.5-5.1); SODIUM 134 MMOL/L (135-145); TOTAL PROTEIN 8.7 G/DL (6.4-8.2); eCRCL 107 ML/MIN; eGFR > 90 ML/MIN
[2024-03-20 19:37] LABS: GLUCOSE 421 MG/DL (70-104)
[2024-03-21] MEDS ORDERED: GABA600T13 PO (00:13)
[2024-03-21 00:29] VITALS: BP 144/84; PULSE 77; RESP 16; TEMP 97.9; O2SAT 97
== END 2024-03-21 00:30 | disposition home or self-care (01) ==
LOC: ER 16:40
DX: E11.9 Type 2 diabetes mellitus without complications (principal); G62.9 Polyneuropathy, unspecified; E78.00 Pure hypercholesterolemia, unspecified; I10 Essential (primary) hypertension; Z88.8 Allergy status to other drugs, medicaments and biological substances; Z79.899 Other long term (current) drug therapy; Z91.018 Allergy to other foods; Z91.013 Allergy to seafood
CPT/HCPCS: 36415; 80053; 83605; 84145; 85025; 85610; 85730; 87040; 93970; 99284

== ENCOUNTER 2024-04-26 11:21 | Inpatient (IN) | payer OTHER ==
[~2024-04-26] VITALS: Ht 165.1 cm; Wt 84.8 kg
[2024-04-26] MEDS: normal saline 1000ml 1,000 ML IV SCH (02:00)
[~2024-04-26 11:21] MED LIST changes: -AMOX-580 PO; +GABA600T13 PO; -HYDR-3965 PO
[2024-04-26 12:39] LABS: BASOPHILS # (AUTO) 0.1 X10'3 (0-0.2); BASOPHILS % (AUTO) 0.3 % (0-1); EOSINOPHILS # (AUTO) 0.1 X10'3 (0-0.9); EOSINOPHILS % (AUTO) 0.3 % (0-6); HEMATOCRIT 42.4 % (42.0-52.0); HEMOGLOBIN 14.7 g/dl (14.0-17.9); LYMPHOCYTES # (AUTO) 2.1 X10'3 (1.1-4.8); LYMPHOCYTES % (AUTO) 10.7 % (21-51); MEAN CORPUSCULAR HEMOGLOBIN 30.1 PG (27.0-31.0); MEAN CORPUSCULAR HGB CONC 34.6 g/dL (33.0-36.5); MEAN CORPUSCULAR VOLUME 86.9 FL (78-98); MEAN PLATELET VOLUME 7.6 FL (7.4-10.4); MONOCYTES # (AUTO) 1.7 X10'3 (0-0.9); MONOCYTES % (AUTO) 8.7 % (2-12); PLATELET COUNT 333 X10'3 (140-440); RED BLOOD COUNT 4.87 X10'6 (4.70-6.10); RED CELL DISTRIBUTION WIDTH 12.6 % (11.5-14.5)
[2024-04-26 12:45] LABS: ALANINE AMINOTRANSFERASE 43 U/L (12-78); ALBUMIN 3.6 G/DL (3.4-5.0); ALBUMIN/GLOBULIN RATIO 0.7 (1.1-1.5); ALKALINE PHOSPHATASE 112 IU/L (46-116); ANION GAP 11 (8-16); ASPARTATE AMINO TRANSFERASE 22 U/L (10-37); BILIRUBIN,DIRECT 0.3 MG/DL (0-0.3); BLOOD UREA NITROGEN 11 MG/DL (7-18); BUN/CREATININE RATIO 12.5 (10.0-20.0); CALCIUM 9.8 MG/DL (8.5-10.1); CHLORIDE 93 MMOL/L (99-107); CREATININE 0.88 MG/DL (0.60-1.10); MAGNESIUM 1.8 MG/DL (1.5-2.4); POTASSIUM 4.4 MMOL/L (3.5-5.1); SODIUM 131 MMOL/L (135-145); TOTAL CARBON DIOXIDE 26.6 MMOL/L (24-32); TOTAL PROTEIN 8.9 G/DL (6.4-8.2); eCRCL 86 ML/MIN; eGFR > 90 ML/MIN
[2024-04-26 12:46] LABS: GLUCOSE 473 MG/DL (70-104)
[2024-04-26] MEDS: ondansetron/PF 4mg/2ml inj IV ONE (12:51)
[2024-04-26] MEDS: normal saline 1000ML IV soln IV ONE (12:51)
[2024-04-26] MEDS: morphine 4 MG/ML inj SYRINge IV ONE (12:54)
[2024-04-26] MEDS: piperacillin/tazo 3.375gm/50ml 50 ML IV ONE (12:56)
[2024-04-26 13:23] LABS: BILIRUBIN,URINE NEGATIVE (Neg); CLARITY,URINE CLEAR (Clear); COLOR,URINE YELLOW (Yellow); GLUCOSE, URINE >=1000 mg/dl (Neg); KETONES,URINE 40 mg/dl (Neg); LEUKOCYTE ESTERASE ,URINE NEGATIVE (Neg); NITRITES, URINE NEGATIVE (Neg); OCCULT BLOOD,URINE TRACE-INTACT (Neg); PH,URINE 5.5 (4.8-8.0); PROTEIN,URINE NEGATIVE (Neg); UROBILINOGEN,URINE 0.2 E.U/dL (0.2-1.0)
[2024-04-26] MEDS ORDERED: mag hydrox/Alum hydrox/simeth 30ml oral suspension PO PRN (13:25)
[2024-04-26] MEDS ORDERED: magnesium 4gm in 100ml NS 100 ML IV PRN (13:25)
[2024-04-26] MEDS ORDERED: HYDROmorphone/PF 0.2 MG/ML SYRINGE IV PRN (13:25)
[2024-04-26] MEDS ORDERED: acetaminophen 325mg tablet PO PRN (13:25)
[2024-04-26] MEDS ORDERED: DEXTROSE 15 GM of carb/4 tabs (each vial/BOTTLE has 4 tablets) PO PRN ×2 (13:25)
[2024-04-26] MEDS ORDERED: magnesium 2GM in 50ml NS 50 ML IV PRN (13:25)
[2024-04-26] MEDS ORDERED: potassium Cl 40MEQ/1/2NS 520ml 520 ML IV PRN (13:25)
[2024-04-26] MEDS ORDERED: dextrose 50%-water 50ml dispensing syringe IV PRN ×2 (13:25)
[2024-04-26] MEDS ORDERED: ondansetron/PF 4mg/2ml inj IV PRN (13:25)
[2024-04-26] MEDS ORDERED: glucagon, human recombinant 1mg kit SUBCUT PRN (13:25)
[2024-04-26 13:30] LABS: UA COLLECTION TYPE VOIDED
[2024-04-26 13:38] LABS: MUCUS STRANDS FEW /LPF (Neg); SQUAMOUS EPITHELIAL CELL,UR FEW /LPF (FEW)
[2024-04-26 13:41] LABS: BACTERIA,URINE NONE SEEN /HPF (Neg); RBC,URINE 0-2 /HPF (0-2); WBC,URINE NONE SEEN /HPF (0-4)
[2024-04-26] MEDS: vancomycin/NS 1 GM ADD-VANTAGE 250 ML X 1 DOSE IV ONE (14:11)
[2024-04-26] MEDS: INSULIN LISPRO 100 UNIT/ML INSULN.PEN MULTI-DOSE SQ ONE (14:11)
[2024-04-26] MEDS: TETanus/Pertussis (Acell)/Diphther VAC/PF (Tdap-Adult) 0.5ml syringe IMVAC ONE (14:28)
[2024-04-26] MEDS: piperacillin/tazo 4.5gm/100ml 100 ML IV SCH (16:00)
[2024-04-26] MEDS ORDERED: METF-1203 PO (16:02)
[2024-04-26] MEDS ORDERED: SILD100T70 PO (16:02)
[2024-04-26] MEDS ORDERED: ATOR40TA PO (16:02)
[2024-04-26] MEDS: HYDROmorphone inj. 0.5 MG/0.5 ML DISP.SYRIN IV PRN (16:54)
[2024-04-26 17:55] VITALS: RESP 16; O2SAT 97
[2024-04-26 18:01] VITALS: BP 135/83; PULSE 105; RESP 17; TEMP 98; O2SAT 97
[2024-04-26] MEDS ORDERED: ASPI-611 PO (18:14)
[2024-04-26] MEDS: K and/or MAG REPLACEMENT MC SCH (20:00)
[2024-04-26 20:40] VITALS: RESP 18
[2024-04-26] MEDS: INSULIN LISPRO 100 UNIT/ML INSULN.PEN MULTI-DOSE SQ SCH ×2 (21:06→21:07)
[2024-04-26] MEDS: docusate sod 100mg capsule PO SCH (21:07)
[2024-04-26] MEDS: enoxaparin 40mg/0.4ml syringe SQ SCH (21:07)
[2024-04-26] MEDS: insulin glargine (Lantus) pen - multi-dose SQ SCH (21:09)
[2024-04-26] MEDS: HYDROcodone/acetaminophen 10/325mg tab PO PRN (21:22)
[2024-04-26 22:00] VITALS: BP 129/77; PULSE 107; RESP 18; TEMP 98.5; O2SAT 95
[2024-04-27] MEDS: VANCOmycin 1250MG/NS 250ml Bag 250 ML IV SCH (02:04)
[2024-04-27 07:00] VITALS: BP 111/71; PULSE 96; RESP 18; TEMP 98.1; O2SAT 95
[2024-04-27 07:17] LABS: BASOPHILS % (AUTO) 0.2 % (0-1); EOSINOPHILS # (AUTO) 0.1 X10'3 (0-0.9); EOSINOPHILS % (AUTO) 0.9 % (0-6); HEMATOCRIT 36.3 % (42.0-52.0); HEMOGLOBIN 12.2 g/dl (14.0-17.9); LYMPHOCYTES # (AUTO) 1.8 X10'3 (1.1-4.8); LYMPHOCYTES % (AUTO) 13.1 % (21-51); MEAN CORPUSCULAR HEMOGLOBIN 29.4 PG (27.0-31.0); MEAN CORPUSCULAR HGB CONC 33.8 g/dL (33.0-36.5); MEAN CORPUSCULAR VOLUME 87.2 FL (78-98); MEAN PLATELET VOLUME 7.9 FL (7.4-10.4); MONOCYTES # (AUTO) 1.4 X10'3 (0-0.9); MONOCYTES % (AUTO) 10.4 % (2-12); NEUTROPHILS # (AUTO) 10.3 X10'3 (1.8-7.7); NEUTROPHILS % (AUTO) 75.4 % (42-75); PLATELET COUNT 271 X10'3 (140-440); RED BLOOD COUNT 4.16 X10'6 (4.70-6.10); RED CELL DISTRIBUTION WIDTH 12.4 % (11.5-14.5); WHITE BLOOD COUNT 13.7 X10'3 (4.5-11.0)
[2024-04-27 07:21] LABS: ALANINE AMINOTRANSFERASE 33 U/L (12-78); ALBUMIN 2.4 G/DL (3.4-5.0); ALBUMIN/GLOBULIN RATIO 0.6 (1.1-1.5); ALKALINE PHOSPHATASE 83 IU/L (46-116); ANION GAP 9 (8-16); ASPARTATE AMINO TRANSFERASE 24 U/L (10-37); BILIRUBIN,TOTAL 0.8 MG/DL (0.1-1.0); BLOOD UREA NITROGEN 8 MG/DL (7-18); BUN/CREATININE RATIO 12.7 (10.0-20.0); CHLORIDE 100 MMOL/L (99-107); CREATININE 0.63 MG/DL (0.60-1.10); GLUCOSE 258 MG/DL (70-104); MAGNESIUM 1.7 MG/DL (1.5-2.4); POTASSIUM 3.7 MMOL/L (3.5-5.1); SODIUM 134 MMOL/L (135-145); TOTAL CARBON DIOXIDE 24.7 MMOL/L (24-32); TOTAL PROTEIN 6.5 G/DL (6.4-8.2); eCRCL 121 ML/MIN; eGFR > 90 ML/MIN
[2024-04-27] MEDS: INSULIN LISPRO 100 UNIT/ML INSULN.PEN MULTI-DOSE SQ SCH (08:27)
[2024-04-27 11:00] VITALS: BP 111/68; PULSE 97; RESP 14; TEMP 97.5; O2SAT 94
[2024-04-27 18:00] VITALS: BP 133/84; PULSE 103; RESP 20; TEMP 98.1; O2SAT 95
[2024-04-27 20:20] VITALS: RESP 16
[2024-04-27] MEDS: pregabalin 75mg capsule PO SCH (20:43)
[2024-04-27 22:00] VITALS: BP 120/66; PULSE 80; RESP 14; TEMP 97.6; O2SAT 96
[2024-04-28 06:00] VITALS: BP 129/85; PULSE 94; RESP 16; TEMP 98.1; O2SAT 97
[2024-04-28 06:07] LABS: BASOPHILS % (AUTO) 0.2 % (0-1); EOSINOPHILS # (AUTO) 0.2 X10'3 (0-0.9); EOSINOPHILS % (AUTO) 1.2 % (0-6); HEMATOCRIT 36.1 % (42.0-52.0); HEMOGLOBIN 12.2 g/dl (14.0-17.9); LYMPHOCYTES # (AUTO) 3.1 X10'3 (1.1-4.8); LYMPHOCYTES % (AUTO) 23.2 % (21-51); MEAN CORPUSCULAR HEMOGLOBIN 29.3 PG (27.0-31.0); MEAN CORPUSCULAR HGB CONC 33.7 g/dL (33.0-36.5); MEAN CORPUSCULAR VOLUME 86.8 FL (78-98); MEAN PLATELET VOLUME 7.4 FL (7.4-10.4); MONOCYTES # (AUTO) 1.5 X10'3 (0-0.9); MONOCYTES % (AUTO) 11.4 % (2-12); NEUTROPHILS # (AUTO) 8.5 X10'3 (1.8-7.7); PLATELET COUNT 289 X10'3 (140-440); RED BLOOD COUNT 4.16 X10'6 (4.70-6.10); RED CELL DISTRIBUTION WIDTH 12.7 % (11.5-14.5); WHITE BLOOD COUNT 13.2 X10'3 (4.5-11.0)
[2024-04-28 06:13] LABS: ALANINE AMINOTRANSFERASE 32 U/L (12-78); ALBUMIN 2.3 G/DL (3.4-5.0); ALBUMIN/GLOBULIN RATIO 0.5 (1.1-1.5); ALKALINE PHOSPHATASE 108 IU/L (46-116); ANION GAP 5 (8-16); ASPARTATE AMINO TRANSFERASE 15 U/L (10-37); BILIRUBIN,TOTAL 0.6 MG/DL (0.1-1.0); BLOOD UREA NITROGEN 7 MG/DL (7-18); BUN/CREATININE RATIO 10.4 (10.0-20.0); CALCIUM 8.6 MG/DL (8.5-10.1); CHLORIDE 101 MMOL/L (99-107); CREATININE 0.67 MG/DL (0.60-1.10); GLUCOSE 209 MG/DL (70-104); MAGNESIUM 1.7 MG/DL (1.5-2.4); POTASSIUM 3.4 MMOL/L (3.5-5.1); SODIUM 136 MMOL/L (135-145); TOTAL CARBON DIOXIDE 29.6 MMOL/L (24-32); TOTAL PROTEIN 6.7 G/DL (6.4-8.2); eCRCL 113 ML/MIN; eGFR > 90 ML/MIN
[2024-04-28] MEDS: lisinopril 10 MG tablet PO SCH (10:12)
[2024-04-28] MEDS: aspirin 81mg, enteric-coated 1 TAB TABLET.DR PO SCH (10:12)
[2024-04-28] MEDS: potassium Cl 20 mEq SR tablet PO PRN ×2 (10:13→20:01)
[2024-04-28] MEDS: atorvastatin 20mg tablet PO SCH (10:14)
[2024-04-28] MEDS: INSULIN LISPRO 100 UNIT/ML INSULN.PEN MULTI-DOSE SQ SCH (10:18)
[2024-04-28 11:00] VITALS: BP 116/68; PULSE 102; RESP 18; TEMP 98.7; O2SAT 96
[2024-04-28] MEDS: VANCOMYCIN LEVEL IV ONE (14:07)
[2024-04-28 18:00] VITALS: BP 114/80; PULSE 87; RESP 14; TEMP 98.4; O2SAT 97
[2024-04-28 20:00] VITALS: RESP 18
[2024-04-28] MEDS: insulin glargine (Lantus) pen - multi-dose SQ SCH (21:34)
[2024-04-28 22:00] VITALS: BP 136/80; PULSE 95; RESP 18; TEMP 98.6; O2SAT 98
[2024-04-29] MEDS: vancomycin 1,750 MG in NS 350ml IV soln IV SCH (02:08)
[2024-04-29 06:00] VITALS: BP 139/86; PULSE 90; RESP 14; TEMP 97.7; O2SAT 95
[2024-04-29 06:18] LABS: BASOPHILS % (AUTO) 0.3 % (0-1); EOSINOPHILS # (AUTO) 0.2 X10'3 (0-0.9); EOSINOPHILS % (AUTO) 1.6 % (0-6); HEMATOCRIT 35.9 % (42.0-52.0); HEMOGLOBIN 12.1 g/dl (14.0-17.9); LYMPHOCYTES # (AUTO) 2.5 X10'3 (1.1-4.8); LYMPHOCYTES % (AUTO) 20.9 % (21-51); MEAN CORPUSCULAR HEMOGLOBIN 29.4 PG (27.0-31.0); MEAN CORPUSCULAR HGB CONC 33.8 g/dL (33.0-36.5); MEAN PLATELET VOLUME 7.6 FL (7.4-10.4); MONOCYTES # (AUTO) 1.4 X10'3 (0-0.9); MONOCYTES % (AUTO) 11.8 % (2-12); NEUTROPHILS # (AUTO) 7.9 X10'3 (1.8-7.7); NEUTROPHILS % (AUTO) 65.4 % (42-75); PLATELET COUNT 320 X10'3 (140-440); RED BLOOD COUNT 4.13 X10'6 (4.70-6.10); RED CELL DISTRIBUTION WIDTH 12.7 % (11.5-14.5); WHITE BLOOD COUNT 12.1 X10'3 (4.5-11.0)
[2024-04-29 06:27] LABS: ALANINE AMINOTRANSFERASE 31 U/L (12-78); ALBUMIN 2.2 G/DL (3.4-5.0); ALBUMIN/GLOBULIN RATIO 0.5 (1.1-1.5); ALKALINE PHOSPHATASE 113 IU/L (46-116); ANION GAP 7 (8-16); ASPARTATE AMINO TRANSFERASE 17 U/L (10-37); BILIRUBIN,TOTAL 0.5 MG/DL (0.1-1.0); BLOOD UREA NITROGEN 6 MG/DL (7-18); BUN/CREATININE RATIO 10.5 (10.0-20.0); CHLORIDE 103 MMOL/L (99-107); CREATININE 0.57 MG/DL (0.60-1.10); GLUCOSE 181 MG/DL (70-104); MAGNESIUM 1.7 MG/DL (1.5-2.4); POTASSIUM 3.7 MMOL/L (3.5-5.1); SODIUM 138 MMOL/L (135-145); TOTAL CARBON DIOXIDE 27.8 MMOL/L (24-32); TOTAL PROTEIN 6.3 G/DL (6.4-8.2); eCRCL 133 ML/MIN; eGFR > 90 ML/MIN
[2024-04-29 11:00] VITALS: BP 132/82; PULSE 94; RESP 18; TEMP 97.7; O2SAT 92
[2024-04-29 18:00] VITALS: BP 136/84; PULSE 87; RESP 16; TEMP 97.4; O2SAT 98
[2024-04-29 20:00] VITALS: RESP 16; O2SAT 98
[2024-04-29 22:00] VITALS: BP 127/80; PULSE 97; RESP 16; TEMP 98.5; O2SAT 97
[2024-04-30 06:00] VITALS: BP 138/87; PULSE 90; RESP 12; TEMP 97.4; O2SAT 96
[2024-04-30 06:37] LABS: BASOPHILS % (AUTO) 0.3 % (0-1); EOSINOPHILS # (AUTO) 0.2 X10'3 (0-0.9); EOSINOPHILS % (AUTO) 1.5 % (0-6); HEMATOCRIT 36.4 % (42.0-52.0); HEMOGLOBIN 12.3 g/dl (14.0-17.9); LYMPHOCYTES # (AUTO) 2.7 X10'3 (1.1-4.8); LYMPHOCYTES % (AUTO) 23.9 % (21-51); MEAN CORPUSCULAR HEMOGLOBIN 29.5 PG (27.0-31.0); MEAN CORPUSCULAR HGB CONC 33.7 g/dL (33.0-36.5); MEAN CORPUSCULAR VOLUME 87.5 FL (78-98); MEAN PLATELET VOLUME 7.7 FL (7.4-10.4); MONOCYTES # (AUTO) 1.2 X10'3 (0-0.9); MONOCYTES % (AUTO) 10.6 % (2-12); NEUTROPHILS # (AUTO) 7.2 X10'3 (1.8-7.7); NEUTROPHILS % (AUTO) 63.7 % (42-75); PLATELET COUNT 344 X10'3 (140-440); RED BLOOD COUNT 4.16 X10'6 (4.70-6.10); RED CELL DISTRIBUTION WIDTH 12.8 % (11.5-14.5); WHITE BLOOD COUNT 11.4 X10'3 (4.5-11.0)
[2024-04-30 07:05] LABS: ALANINE AMINOTRANSFERASE 28 U/L (12-78); ALBUMIN 2.3 G/DL (3.4-5.0); ALBUMIN/GLOBULIN RATIO 0.5 (1.1-1.5); ALKALINE PHOSPHATASE 127 IU/L (46-116); ANION GAP 10 (8-16); ASPARTATE AMINO TRANSFERASE 18 U/L (10-37); BILIRUBIN,TOTAL 0.5 MG/DL (0.1-1.0); BLOOD UREA NITROGEN 7 MG/DL (7-18); BUN/CREATININE RATIO 12.3 (10.0-20.0); CHLORIDE 102 MMOL/L (99-107); CREATININE 0.57 MG/DL (0.60-1.10); GLUCOSE 126 MG/DL (70-104); MAGNESIUM 1.8 MG/DL (1.5-2.4); POTASSIUM 3.6 MMOL/L (3.5-5.1); SODIUM 138 MMOL/L (135-145); TOTAL CARBON DIOXIDE 26.1 MMOL/L (24-32); TOTAL PROTEIN 6.8 G/DL (6.4-8.2); eCRCL 133 ML/MIN; eGFR > 90 ML/MIN
[2024-04-30 08:00] VITALS: RESP 12; O2SAT 98
[2024-04-30 10:00] VITALS: BP 129/82; PULSE 92; RESP 17; TEMP 97; O2SAT 97
[2024-04-30] MEDS: VANCOMYCIN LEVEL IV ONE (13:59)
[2024-04-30] MEDS: VANCOmycin 2,000MG in NS 500ml IV soln IV SCH (15:27)
[2024-04-30] MEDS: metroNIDAZOLE 500mg tablet PO SCH (15:32)
[2024-04-30 19:56] VITALS: BP 129/82; PULSE 78; RESP 17; TEMP 97.7; O2SAT 96
[2024-04-30 20:00] VITALS: RESP 17; O2SAT 96
[2024-04-30 22:00] VITALS: BP 127/90; PULSE 99; RESP 12; TEMP 98.1; O2SAT 96
[2024-05-01 05:55] LABS: BASOPHILS % (AUTO) 0.3 % (0-1); EOSINOPHILS # (AUTO) 0.2 X10'3 (0-0.9); EOSINOPHILS % (AUTO) 1.8 % (0-6); HEMATOCRIT 37.2 % (42.0-52.0); HEMOGLOBIN 12.8 g/dl (14.0-17.9); LYMPHOCYTES # (AUTO) 2.6 X10'3 (1.1-4.8); LYMPHOCYTES % (AUTO) 24.5 % (21-51); MEAN CORPUSCULAR HEMOGLOBIN 29.8 PG (27.0-31.0); MEAN CORPUSCULAR HGB CONC 34.4 g/dL (33.0-36.5); MEAN CORPUSCULAR VOLUME 86.7 FL (78-98); MEAN PLATELET VOLUME 7.1 FL (7.4-10.4); MONOCYTES # (AUTO) 1.1 X10'3 (0-0.9); MONOCYTES % (AUTO) 10.9 % (2-12); NEUTROPHILS # (AUTO) 6.5 X10'3 (1.8-7.7); NEUTROPHILS % (AUTO) 62.5 % (42-75); PLATELET COUNT 375 X10'3 (140-440); RED BLOOD COUNT 4.29 X10'6 (4.70-6.10); RED CELL DISTRIBUTION WIDTH 12.8 % (11.5-14.5); WHITE BLOOD COUNT 10.5 X10'3 (4.5-11.0)
[2024-05-01 06:11] LABS: ALANINE AMINOTRANSFERASE 28 U/L (12-78); ALBUMIN 2.4 G/DL (3.4-5.0); ALBUMIN/GLOBULIN RATIO 0.5 (1.1-1.5); ALKALINE PHOSPHATASE 134 IU/L (46-116); ANION GAP 5 (8-16); ASPARTATE AMINO TRANSFERASE 18 U/L (10-37); BILIRUBIN,TOTAL 0.4 MG/DL (0.1-1.0); BLOOD UREA NITROGEN 7 MG/DL (7-18); BUN/CREATININE RATIO 11.9 (10.0-20.0); CALCIUM 8.9 MG/DL (8.5-10.1); CHLORIDE 104 MMOL/L (99-107); CREATININE 0.59 MG/DL (0.60-1.10); GLUCOSE 143 MG/DL (70-104); MAGNESIUM 1.8 MG/DL (1.5-2.4); POTASSIUM 3.7 MMOL/L (3.5-5.1); SODIUM 139 MMOL/L (135-145); TOTAL CARBON DIOXIDE 29.7 MMOL/L (24-32); TOTAL PROTEIN 6.9 G/DL (6.4-8.2); eCRCL 129 ML/MIN; eGFR > 90 ML/MIN
[2024-05-01 06:30] VITALS: BP 150/90; PULSE 90; RESP 12; TEMP 97.6; O2SAT 95
[2024-05-01 08:00] VITALS: RESP 12; O2SAT 96
[2024-05-01] MEDS: CefTRIAXone 2gm/D5W 50ml BAG 50 ML IV SCH (09:16)
[2024-05-01 10:00] VITALS: BP 129/80; PULSE 97; RESP 14; TEMP 97.1; O2SAT 95
[2024-05-01] MEDS ORDERED: bisacodyl 10mg suppository rectal RC PRN (12:05)
[2024-05-01] MEDS ORDERED: lactulose 20gm/30ml cup PO PRN (12:05)
[2024-05-01] MEDS: magnesium hydroxide 30ml (MOM) UD suspension PO PRN (12:26)
[2024-05-01 18:00] VITALS: BP 134/88; PULSE 90; RESP 18; TEMP 97.6; O2SAT 98
[2024-05-01 20:00] VITALS: RESP 18; O2SAT 98
[2024-05-01 22:00] VITALS: BP 145/88; PULSE 88; RESP 12; TEMP 97.9; O2SAT 96
[2024-05-02] MEDS: VANCOMYCIN LEVEL IV ONE (02:48)
[2024-05-02 03:40] LABS: C-REACTIVE PROTEIN 4.69 MG/DL (0.0-0.5); VANCOMYCIN,TROUGH 13.6 ug/mL (10.0-20.0)
[2024-05-02 08:00] VITALS: BP 151/90; PULSE 86; RESP 16; O2SAT 96
[2024-05-02 10:26] VITALS: BP 132/88; PULSE 89; RESP 16; TEMP 97.1; O2SAT 96
[2024-05-02] MEDS: VANCOMYCIN 1,500MG in NS 300ml IVPB IV SCH (13:47)
[2024-05-02 18:00] VITALS: BP 149/99; PULSE 84; RESP 16; TEMP 97.6; O2SAT 98
[2024-05-02 20:00] VITALS: RESP 16; O2SAT 98
[2024-05-03] VITALS (7 sets, daily range): BP systolic 126–133; BP diastolic 75–91; PULSE 86–93; RESP 14–18; TEMP 97.9–98.5; O2SAT 94–96
[2024-05-03 06:12] LABS: BASOPHILS # (AUTO) 0.1 X10'3 (0-0.2); BASOPHILS % (AUTO) 0.5 % (0-1); EOSINOPHILS # (AUTO) 0.2 X10'3 (0-0.9); EOSINOPHILS % (AUTO) 1.8 % (0-6); HEMOGLOBIN 13.1 g/dl (14.0-17.9); LYMPHOCYTES # (AUTO) 2.2 X10'3 (1.1-4.8); LYMPHOCYTES % (AUTO) 20.8 % (21-51); MEAN CORPUSCULAR HEMOGLOBIN 29.8 PG (27.0-31.0); MEAN CORPUSCULAR HGB CONC 34.4 g/dL (33.0-36.5); MEAN CORPUSCULAR VOLUME 86.7 FL (78-98); MEAN PLATELET VOLUME 7.4 FL (7.4-10.4); MONOCYTES # (AUTO) 1.1 X10'3 (0-0.9); MONOCYTES % (AUTO) 10.2 % (2-12); NEUTROPHILS % (AUTO) 66.7 % (42-75); PLATELET COUNT 399 X10'3 (140-440); RED BLOOD COUNT 4.38 X10'6 (4.70-6.10); RED CELL DISTRIBUTION WIDTH 12.5 % (11.5-14.5); WHITE BLOOD COUNT 10.5 X10'3 (4.5-11.0)
[2024-05-03 06:33] LABS: ALANINE AMINOTRANSFERASE 33 U/L (12-78); ALBUMIN 2.5 G/DL (3.4-5.0); ALBUMIN/GLOBULIN RATIO 0.5 (1.1-1.5); ALKALINE PHOSPHATASE 130 IU/L (46-116); ANION GAP 9 (8-16); ASPARTATE AMINO TRANSFERASE 23 U/L (10-37); BILIRUBIN,TOTAL 0.4 MG/DL (0.1-1.0); BLOOD UREA NITROGEN 7 MG/DL (7-18); BUN/CREATININE RATIO 11.7 (10.0-20.0); CALCIUM 9.1 MG/DL (8.5-10.1); CHLORIDE 102 MMOL/L (99-107); GLUCOSE 176 MG/DL (70-104); POTASSIUM 3.9 MMOL/L (3.5-5.1); SODIUM 139 MMOL/L (135-145); TOTAL CARBON DIOXIDE 27.9 MMOL/L (24-32); TOTAL PROTEIN 7.2 G/DL (6.4-8.2); eCRCL 127 ML/MIN; eGFR > 90 ML/MIN
[2024-05-03] MEDS: acetaminophen 325mg tablet PO PRN (07:41)
[2024-05-03 10:17] LABS: MAGNESIUM 1.9 MG/DL (1.5-2.4)
[2024-05-03] MEDS: VANCOMYCIN LEVEL IV ONE (11:30)
[2024-05-03] MEDS: vancomycin 1,750 MG in NS 350ml IV soln IV SCH (20:12)
[2024-05-04] VITALS (7 sets, daily range): BP systolic 121–135; BP diastolic 76–93; PULSE 85–92; RESP 16–18; TEMP 97.1–98; O2SAT 90–98
[2024-05-04 08:34] LABS: BASOPHILS % (AUTO) 0.5 % (0-1); EOSINOPHILS # (AUTO) 0.2 X10'3 (0-0.9); EOSINOPHILS % (AUTO) 1.8 % (0-6); HEMATOCRIT 39.3 % (42.0-52.0); HEMOGLOBIN 13.4 g/dl (14.0-17.9); LYMPHOCYTES # (AUTO) 2.3 X10'3 (1.1-4.8); LYMPHOCYTES % (AUTO) 22.4 % (21-51); MEAN CORPUSCULAR HEMOGLOBIN 29.7 PG (27.0-31.0); MEAN CORPUSCULAR HGB CONC 34.2 g/dL (33.0-36.5); MEAN CORPUSCULAR VOLUME 86.8 FL (78-98); MEAN PLATELET VOLUME 6.8 FL (7.4-10.4); MONOCYTES # (AUTO) 0.9 X10'3 (0-0.9); MONOCYTES % (AUTO) 9.4 % (2-12); NEUTROPHILS # (AUTO) 6.7 X10'3 (1.8-7.7); NEUTROPHILS % (AUTO) 65.9 % (42-75); PLATELET COUNT 389 X10'3 (140-440); RED BLOOD COUNT 4.53 X10'6 (4.70-6.10); RED CELL DISTRIBUTION WIDTH 12.9 % (11.5-14.5); WHITE BLOOD COUNT 10.1 X10'3 (4.5-11.0)
[2024-05-04 08:45] LABS: ALANINE AMINOTRANSFERASE 39 U/L (12-78); ALBUMIN 2.6 G/DL (3.4-5.0); ALBUMIN/GLOBULIN RATIO 0.5 (1.1-1.5); ALKALINE PHOSPHATASE 125 IU/L (46-116); ANION GAP 7 (8-16); ASPARTATE AMINO TRANSFERASE 27 U/L (10-37); BILIRUBIN,TOTAL 0.3 MG/DL (0.1-1.0); BLOOD UREA NITROGEN 7 MG/DL (7-18); BUN/CREATININE RATIO 10.8 (10.0-20.0); CALCIUM 8.6 MG/DL (8.5-10.1); CHLORIDE 103 MMOL/L (99-107); CREATININE 0.65 MG/DL (0.60-1.10); GLUCOSE 210 MG/DL (70-104); POTASSIUM 4.1 MMOL/L (3.5-5.1); SODIUM 139 MMOL/L (135-145); TOTAL CARBON DIOXIDE 29.4 MMOL/L (24-32); TOTAL PROTEIN 7.5 G/DL (6.4-8.2); eCRCL 117 ML/MIN; eGFR > 90 ML/MIN
[2024-05-04] MEDS: LIDOcaine/PRILOcaine 5gm cream TP PRN (10:44)
[2024-05-04] MEDS: VANCOMYCIN LEVEL IV ONE (20:06)
[2024-05-05 06:00] VITALS: BP 127/76; PULSE 81; RESP 14; TEMP 97; O2SAT 96
[2024-05-05 08:00] VITALS: RESP 14; O2SAT 96
[2024-05-05 11:00] VITALS: BP 97/73; PULSE 73; RESP 16; TEMP 97.3; O2SAT 95
[2024-05-05] MEDS: VANCOMYCIN LEVEL IV ONE (13:16)
[2024-05-05] MEDS: VANCOMYCIN 1,500MG in NS 300ml IVPB IV SCH (13:26)
[2024-05-05] MEDS: nystatin 15 GM powder TP SCH (13:29)
[2024-05-05] MEDS: HYDROcodone/acetaminophen 5mg/325mg tablet PO PRN (16:01)
[2024-05-05 18:00] VITALS: BP 119/79; PULSE 83; RESP 16; TEMP 97.4; O2SAT 96
[2024-05-05 20:00] VITALS: RESP 16
[2024-05-05 22:00] VITALS: BP 118/75; PULSE 88; RESP 12; TEMP 97.8; O2SAT 94
[2024-05-06 06:00] VITALS: BP 129/91; PULSE 89; RESP 14; TEMP 97; O2SAT 97
[2024-05-06 09:00] VITALS: RESP 18; O2SAT 95
[2024-05-06 11:00] VITALS: BP 118/71; PULSE 84; RESP 16; TEMP 97.1; O2SAT 96
[2024-05-06] MEDS: VANCOMYCIN LEVEL IV ONE (11:30)
[2024-05-06 12:05] LABS: BASOPHILS % (AUTO) 0.4 % (0-1); EOSINOPHILS # (AUTO) 0.1 X10'3 (0-0.9); EOSINOPHILS % (AUTO) 1.5 % (0-6); HEMATOCRIT 39.1 % (42.0-52.0); HEMOGLOBIN 13.1 g/dl (14.0-17.9); LYMPHOCYTES % (AUTO) 20.9 % (21-51); MEAN CORPUSCULAR HEMOGLOBIN 29.2 PG (27.0-31.0); MEAN CORPUSCULAR HGB CONC 33.6 g/dL (33.0-36.5); MEAN CORPUSCULAR VOLUME 86.9 FL (78-98); MEAN PLATELET VOLUME 6.9 FL (7.4-10.4); MONOCYTES # (AUTO) 0.8 X10'3 (0-0.9); MONOCYTES % (AUTO) 8.5 % (2-12); NEUTROPHILS # (AUTO) 6.5 X10'3 (1.8-7.7); NEUTROPHILS % (AUTO) 68.7 % (42-75); PLATELET COUNT 374 X10'3 (140-440); WHITE BLOOD COUNT 9.5 X10'3 (4.5-11.0)
[2024-05-06 12:25] LABS: ALANINE AMINOTRANSFERASE 41 U/L (12-78); ALBUMIN 2.7 G/DL (3.4-5.0); ALBUMIN/GLOBULIN RATIO 0.6 (1.1-1.5); ALKALINE PHOSPHATASE 103 IU/L (46-116); ANION GAP 7 (8-16); ASPARTATE AMINO TRANSFERASE 26 U/L (10-37); BILIRUBIN,TOTAL 0.3 MG/DL (0.1-1.0); BLOOD UREA NITROGEN 8 MG/DL (7-18); BUN/CREATININE RATIO 13.3 (10.0-20.0); CALCIUM 9.6 MG/DL (8.5-10.1); CHLORIDE 101 MMOL/L (99-107); GLUCOSE 244 MG/DL (70-104); POTASSIUM 3.7 MMOL/L (3.5-5.1); SODIUM 137 MMOL/L (135-145); TOTAL CARBON DIOXIDE 29.5 MMOL/L (24-32); TOTAL PROTEIN 7.4 G/DL (6.4-8.2); eCRCL 127 ML/MIN; eGFR > 90 ML/MIN
[2024-05-06] MEDS: VANCOmycin 1250MG/NS 250ml Bag 250 ML IV SCH (13:13)
[2024-05-06 18:00] VITALS: BP 123/79; PULSE 83; RESP 16; TEMP 98.2; O2SAT 97
[2024-05-06 20:00] VITALS: RESP 16; O2SAT 97
[2024-05-06] MEDS: insulin glargine (Lantus) pen - multi-dose SQ SCH (21:58)
[2024-05-06 22:00] VITALS: BP 116/77; PULSE 86; RESP 16; TEMP 98.4; O2SAT 97
[2024-05-07 06:00] VITALS: BP 124/69; PULSE 88; RESP 16; TEMP 98.5; O2SAT 98
[2024-05-07 06:19] LABS: BASOPHILS % (AUTO) 0.5 % (0-1); EOSINOPHILS # (AUTO) 0.2 X10'3 (0-0.9); EOSINOPHILS % (AUTO) 1.7 % (0-6); HEMATOCRIT 39.1 % (42.0-52.0); HEMOGLOBIN 12.9 g/dl (14.0-17.9); LYMPHOCYTES # (AUTO) 2.5 X10'3 (1.1-4.8); LYMPHOCYTES % (AUTO) 24.7 % (21-51); MEAN CORPUSCULAR HEMOGLOBIN 29.1 PG (27.0-31.0); MEAN CORPUSCULAR HGB CONC 33.1 g/dL (33.0-36.5); MONOCYTES % (AUTO) 9.7 % (2-12); NEUTROPHILS # (AUTO) 6.4 X10'3 (1.8-7.7); NEUTROPHILS % (AUTO) 63.4 % (42-75); PLATELET COUNT 392 X10'3 (140-440); RED BLOOD COUNT 4.44 X10'6 (4.70-6.10)
[2024-05-07 06:34] LABS: ALANINE AMINOTRANSFERASE 38 U/L (12-78); ALBUMIN 2.8 G/DL (3.4-5.0); ALBUMIN/GLOBULIN RATIO 0.6 (1.1-1.5); ALKALINE PHOSPHATASE 95 IU/L (46-116); ANION GAP 8 (8-16); ASPARTATE AMINO TRANSFERASE 23 U/L (10-37); BILIRUBIN,TOTAL 0.3 MG/DL (0.1-1.0); BLOOD UREA NITROGEN 8 MG/DL (7-18); BUN/CREATININE RATIO 12.7 (10.0-20.0); CALCIUM 9.2 MG/DL (8.5-10.1); CHLORIDE 103 MMOL/L (99-107); CREATININE 0.63 MG/DL (0.60-1.10); GLUCOSE 167 MG/DL (70-104); POTASSIUM 3.9 MMOL/L (3.5-5.1); SODIUM 140 MMOL/L (135-145); TOTAL CARBON DIOXIDE 29.1 MMOL/L (24-32); TOTAL PROTEIN 7.2 G/DL (6.4-8.2); eCRCL 121 ML/MIN; eGFR > 90 ML/MIN
[2024-05-07] MEDS: nystatin 15 GM powder TP SCH (08:36)
[2024-05-07 10:00] VITALS: BP 122/75; PULSE 91; RESP 16; TEMP 97; O2SAT 96
[2024-05-07] MEDS: VANCOMYCIN LEVEL IV ONE (13:30)
[2024-05-07 20:00] VITALS: RESP 16
[2024-05-07 22:00] VITALS: BP 122/74; PULSE 98; RESP 16; TEMP 98.8; O2SAT 97
[2024-05-08] MEDS: VANCOmycin 1250MG/NS 250ml Bag 250 ML IV SCH (00:30)
[2024-05-08 06:38] VITALS: BP 135/88; PULSE 82; RESP 16; TEMP 97.6; O2SAT 96
[2024-05-08 07:39] VITALS: BP_SYST 135; PULSE 82
[2024-05-08] MEDS ORDERED: VANCOMYCIN LEVEL IV ONE (15:30)
== END 2024-05-08 12:59 | DRG 638 ==
LOC: ER 11:21 → ED HOLD 13:33 → SUR 3N 16:40
PROVIDERS: ADMIT Family Medicine; ATTEND Family Medicine
PROC: 05HY33Z Insertion of Infusion Device into Upper Vein, Percutaneous Approach (ICD-10-PCS; principal; 2024-05-04)
DX: E11.621 Type 2 diabetes mellitus with foot ulcer (principal); E87.1 Hypo-osmolality and hyponatremia; M86.172 Other acute osteomyelitis, left ankle and foot; L03.116 Cellulitis of left lower limb; E11.69 Type 2 diabetes mellitus with other specified complication; E11.628 Type 2 diabetes mellitus with other skin complications; E11.65 Type 2 diabetes mellitus with hyperglycemia; I10 Essential (primary) hypertension; E78.5 Hyperlipidemia, unspecified; J44.9 Chronic obstructive pulmonary disease, unspecified; E11.42 Type 2 diabetes mellitus with diabetic polyneuropathy; B95.1 Streptococcus, group B, as the cause of diseases classified elsewhere; B35.6 Tinea cruris; L97.529 Non-pressure chronic ulcer of other part of left foot with unspecified severity; Z79.4 Long term (current) use of insulin; Z79.84 Long term (current) use of oral hypoglycemic drugs; Z80.0 Family history of malignant neoplasm of digestive organs; Z80.42 Family history of malignant neoplasm of prostate; Z83.3 Family history of diabetes mellitus; Z88.1 Allergy status to other antibiotic agents; Z88.2 Allergy status to sulfonamides; Z90.49 Acquired absence of other specified parts of digestive tract
CPT/HCPCS: 36415; 36569; 71045; 73630; 73718; 76942; 80048; 80053; 80076; 80202; 81001; 82948; 83036; 83605; 83735; 84145; 84484; 85025; 85651; 86140; 87040; 87070; 87075; 87077; 87081; 87186; 87811; 90715; 93005; 93306; 93925; 96365; 96375; 97116; 97161; 97530; 99285; A4615; A6223; A6446; A6449; C1751; G0378; J0696; J1170; J1650; J1815; J2270; J2405; J2543; J3370; J7030; J7040

== ENCOUNTER 2024-06-03 12:50 | Emergency (ER) | payer OTHER ==
[~2024-06-03] VITALS: Ht 165.1 cm; Wt 95.0 kg
[~2024-06-03 12:50] MED LIST changes: +ASPI-611 PO; -ATOR20TA66 PO; +ATOR40TA PO; -GABA600T13 PO; +METF-1203 PO; +SILD100T70 PO; -TRAM50TA2 PO; -TRIA15OI9 TOP
[2024-06-03 12:57] VITALS: BP 129/79
[2024-06-03 13:59] VITALS: PULSE 91; RESP 16; TEMP 98; O2SAT 100
== END 2024-06-03 14:01 | disposition home or self-care (01) ==
LOC: ER 12:50
DX: Z48.02 Encounter for removal of sutures (principal); I10 Essential (primary) hypertension; E78.00 Pure hypercholesterolemia, unspecified; E11.42 Type 2 diabetes mellitus with diabetic polyneuropathy; Z88.2 Allergy status to sulfonamides; Z79.82 Long term (current) use of aspirin; Z79.899 Other long term (current) drug therapy
CPT/HCPCS: 99281; A6455

== ENCOUNTER 2024-11-13 00:52 | Inpatient (IN) | payer OTHER ==
[~2024-11-13] VITALS: Ht 165.1 cm; Wt 89.5 kg
[2024-11-13 01:53] LABS: BASOPHILS # (AUTO) 0.1 X10'3 (0-0.2); BASOPHILS % (AUTO) 0.4 % (0-1); EOSINOPHILS # (AUTO) 0.2 X10'3 (0-0.9); EOSINOPHILS % (AUTO) 1.6 % (0-6); HEMATOCRIT 38.3 % (42.0-52.0); HEMOGLOBIN 13.3 g/dl (14.0-17.9); LYMPHOCYTES # (AUTO) 3.4 X10'3 (1.1-4.8); LYMPHOCYTES % (AUTO) 26.9 % (21-51); MEAN CORPUSCULAR HEMOGLOBIN 30.3 PG (27.0-31.0); MEAN CORPUSCULAR HGB CONC 34.8 g/dL (33.0-36.5); MEAN CORPUSCULAR VOLUME 87.3 FL (78-98); MEAN PLATELET VOLUME 7.6 FL (7.4-10.4); MONOCYTES # (AUTO) 1.2 X10'3 (0-0.9); MONOCYTES % (AUTO) 9.5 % (2-12); NEUTROPHILS # (AUTO) 7.9 X10'3 (1.8-7.7); NEUTROPHILS % (AUTO) 61.6 % (42-75); PLATELET COUNT 341 X10'3 (140-440); RED BLOOD COUNT 4.39 X10'6 (4.70-6.10); RED CELL DISTRIBUTION WIDTH 13.2 % (11.5-14.5); WHITE BLOOD COUNT 12.8 X10'3 (4.5-11.0)
[2024-11-13 02:18] LABS: ALANINE AMINOTRANSFERASE 48 U/L (12-78); ALBUMIN 3.7 G/DL (3.4-5.0); ALBUMIN/GLOBULIN RATIO 0.9 (1.1-1.5); ALKALINE PHOSPHATASE 100 IU/L (46-116); ANION GAP 9 (8-16); ASPARTATE AMINO TRANSFERASE 29 U/L (10-37); BILIRUBIN,TOTAL 0.4 MG/DL (0.1-1.0); CALCIUM 9.5 MG/DL (8.5-10.1); CHLORIDE 100 MMOL/L (99-107); CREATININE 0.83 MG/DL (0.60-1.10); GLUCOSE 268 MG/DL (70-104); POTASSIUM 4.1 MMOL/L (3.5-5.1); SODIUM 138 MMOL/L (135-145); TOTAL CARBON DIOXIDE 28.9 MMOL/L (24-32); TOTAL PROTEIN 7.8 G/DL (6.4-8.2); eCRCL 92 ML/MIN; eGFR > 90 ML/MIN
[2024-11-13 02:24] LABS: BLOOD UREA NITROGEN 16 MG/DL (7-18); BUN/CREATININE RATIO 19.3 (10.0-20.0)
[2024-11-13] MEDS: piperacillin/tazo 3.375gm/50ml 50 ML IV SCH ×2 (02:39→07:58)
[2024-11-13] MEDS ORDERED: magnesium Cl slow-release 64mg tablet PO PRN (03:40)
[2024-11-13] MEDS ORDERED: DEXTROSE 15 GM of carb/4 tabs (each vial/BOTTLE has 4 tablets) PO PRN ×2 (03:40)
[2024-11-13] MEDS ORDERED: magnesium hydroxide 30ml (MOM) UD suspension PO PRN (03:40)
[2024-11-13] MEDS ORDERED: mag hydrox/Alum hydrox/simeth 30ml oral suspension PO PRN (03:40)
[2024-11-13] MEDS ORDERED: acetaminophen 325mg tablet PO PRN (03:40)
[2024-11-13] MEDS ORDERED: glucagon, human recombinant 1mg kit SUBCUT PRN (03:40)
[2024-11-13] MEDS ORDERED: dextrose 50%-water 50ml dispensing syringe IV PRN ×2 (03:40)
[2024-11-13] MEDS ORDERED: morphine 2 MG/ML inj. syringe IV PRN ×2 (03:40)
[2024-11-13] MEDS ORDERED: magnesium sulf-water 2g/50mL 50 ML IV PRN (03:40)
[2024-11-13] MEDS ORDERED: HYDROcodone/acetaminophen 5mg/325mg tablet PO PRN (03:40)
[2024-11-13] MEDS ORDERED: ondansetron/PF 4mg/2ml inj IV PRN (03:40)
[2024-11-13] MEDS ORDERED: potassium Cl 20 mEq SR tablet PO PRN ×2 (03:40)
[2024-11-13] MEDS ORDERED: magnesium sulf-water 4G/100mL 100 ML IV PRN (03:40)
[2024-11-13] MEDS ORDERED: potassium Cl 40MEQ/1/2NS 520ml 520 ML IV PRN (03:40)
[2024-11-13] MEDS: VANCOMYCIN/H2O 1.25G/250mL PB 250 ML IV ONE (04:54)
[2024-11-13] MEDS: INSULIN LISPRO 100 UNIT/ML INSULN.PEN MULTI-DOSE SQ SCH ×2 (07:18→12:08)
[2024-11-13] MEDS: K and/or MAG REPLACEMENT MC SCH (07:21)
[2024-11-13] MEDS: docusate sod 100mg capsule PO SCH (07:22)
[2024-11-13] MEDS: enoxaparin 40mg/0.4ml syringe SUBCUT SCH (07:40)
[2024-11-13 07:41] LABS: BILIRUBIN,URINE NEGATIVE (Neg); CLARITY,URINE CLEAR (Clear); COLOR,URINE YELLOW (Yellow); GLUCOSE, URINE >=1000 mg/dl (Neg); KETONES,URINE TRACE mg/dl (Neg); LEUKOCYTE ESTERASE ,URINE NEGATIVE (Neg); NITRITES, URINE NEGATIVE (Neg); OCCULT BLOOD,URINE NEGATIVE (Neg); PROTEIN,URINE NEGATIVE (Neg); UROBILINOGEN,URINE 0.2 E.U/dL (0.2-1.0)
[2024-11-13 07:44] LABS: UA COLLECTION TYPE VOIDED
[2024-11-13 07:47] LABS: BACTERIA,URINE FEW /HPF (Neg); RBC,URINE 0-2 /HPF (0-2); SQUAMOUS EPITHELIAL CELL,UR FEW /LPF (FEW); WBC,URINE 0-4 /HPF (0-4)
[2024-11-13] MEDS: insulin NPH/REG insulin (NovoLIN 70/30) 10ml vial SQ SCH (07:51)
[2024-11-13] MEDS: aspirin 81mg, enteric-coated 1 TAB TABLET.DR PO SCH (07:56)
[2024-11-13] MEDS: atorvastatin 20mg tablet PO SCH (07:58)
[2024-11-13] MEDS: lisinopril 10 MG tablet PO SCH (07:58)
[2024-11-13] MEDS ORDERED: CefTRIAXone/D5W-Rocephin 1gm 50 ML IV SCH (08:00)
[2024-11-13 13:00] VITALS: BP 113/80; PULSE 97; RESP 16; TEMP 98.1; O2SAT 95
[2024-11-13] MEDS: vancomycin/NS 1 GM ADD-VANTAGE 250 ML IV SCH (14:43)
[2024-11-13 18:00] VITALS: BP 124/75; PULSE 94; RESP 17; TEMP 97.1; O2SAT 97
[2024-11-13] MEDS ORDERED: GADOTERATE MEGLUMINE 7.5 MMOL/15 ML VIAL IV ONE (18:33)
[2024-11-13 20:00] VITALS: RESP 17; O2SAT 97
[2024-11-13] MEDS: HYDROcodone/acetaminophen 10/325mg tab PO PRN (21:20)
[2024-11-13] MEDS: insulin glargine (Lantus) pen - multi-dose SQ SCH (21:24)
[2024-11-13 22:00] VITALS: BP 121/66; PULSE 85; RESP 14; TEMP 98.2; O2SAT 96
[2024-11-14] MEDS: VANCOMYCIN LEVEL IV ONE (05:30)
[2024-11-14 05:54] LABS: BASOPHILS % (AUTO) 0.5 % (0-1); EOSINOPHILS # (AUTO) 0.2 X10'3 (0-0.9); EOSINOPHILS % (AUTO) 2.3 % (0-6); HEMOGLOBIN 13.6 g/dl (14.0-17.9); LYMPHOCYTES # (AUTO) 1.6 X10'3 (1.1-4.8); LYMPHOCYTES % (AUTO) 19.4 % (21-51); MEAN CORPUSCULAR VOLUME 88.5 FL (78-98); MEAN PLATELET VOLUME 7.7 FL (7.4-10.4); MONOCYTES % (AUTO) 12.1 % (2-12); NEUTROPHILS # (AUTO) 5.3 X10'3 (1.8-7.7); NEUTROPHILS % (AUTO) 65.7 % (42-75); PLATELET COUNT 285 X10'3 (140-440); RED BLOOD COUNT 4.52 X10'6 (4.70-6.10); RED CELL DISTRIBUTION WIDTH 12.9 % (11.5-14.5); WHITE BLOOD COUNT 8.1 X10'3 (4.5-11.0)
[2024-11-14 06:00] VITALS: BP 124/87; PULSE 87; RESP 16; TEMP 97.9; O2SAT 97
[2024-11-14 06:14] LABS: ALBUMIN 3.2 G/DL (3.4-5.0); ANION GAP 5 (8-16); BLOOD UREA NITROGEN 16 MG/DL (7-18); CALCIUM 9.1 MG/DL (8.5-10.1); CHLORIDE 102 MMOL/L (99-107); CHOL/HDL RATIO 3.2 (0.00-4.99); CHOLESTEROL 144 MG/DL (0-200); GLUCOSE 224 MG/DL (70-104); HDL CHOLESTEROL 45 MG/DL (35-60); LDL CHOLESTEROL 73 MG/DL (50-100); MAGNESIUM 1.8 MG/DL (1.5-2.4); POTASSIUM 4.4 MMOL/L (3.5-5.1); SODIUM 137 MMOL/L (135-145); TRIGLYCERIDES 177 MG/DL (20-135); VANCOMYCIN,TROUGH 11.8 ug/mL (10.0-20.0); eCRCL 95 ML/MIN; eGFR > 90 ML/MIN
[2024-11-14] MEDS: guaiFENesin ER 600mg tablet PO SCH (09:52)
[2024-11-14 10:00] VITALS: BP 113/71; PULSE 95; RESP 16; TEMP 98.3; O2SAT 94
[2024-11-14 12:16] LABS: URINE AMPHETAMINE SCREEN NEGATIVE (Neg); URINE BARBITUATE SCREEN NEGATIVE (Neg); URINE BENZODIAZEPINES SCREEN NEGATIVE (Neg); URINE CANNABINOID SCREEN POSITIVE (Neg); URINE COCAINE SCREEN NEGATIVE (Neg); URINE METHADONE SCREEN NEGATIVE (Neg); URINE OPIATE SCREEN POSITIVE (Neg); URINE PHENCYCLIDINE SCREEN NEGATIVE (Neg)
[2024-11-14] MEDS: VANCOMYCIN/H2O 1.25G/250mL PB 250 ML IV SCH (14:10)
[2024-11-14] MEDS: INSULIN LISPRO 100 UNIT/ML INSULN.PEN MULTI-DOSE SQ SCH (17:39)
[2024-11-14 18:00] VITALS: BP 144/82; PULSE 98; RESP 16; TEMP 98.6; O2SAT 97
[2024-11-14 20:00] VITALS: RESP 16; O2SAT 97
[2024-11-14 22:00] VITALS: BP 138/64; PULSE 98; RESP 20; TEMP 98.9; O2SAT 94
[2024-11-15 06:00] VITALS: BP 122/80; PULSE 91; RESP 16; TEMP 97.5; O2SAT 96
[2024-11-15 06:15] LABS: BASOPHILS % (AUTO) 0.4 % (0-1); EOSINOPHILS # (AUTO) 0.2 X10'3 (0-0.9); EOSINOPHILS % (AUTO) 2.6 % (0-6); HEMATOCRIT 36.9 % (42.0-52.0); HEMOGLOBIN 12.9 g/dl (14.0-17.9); LYMPHOCYTES # (AUTO) 2.2 X10'3 (1.1-4.8); LYMPHOCYTES % (AUTO) 30.6 % (21-51); MEAN CORPUSCULAR HEMOGLOBIN 30.6 PG (27.0-31.0); MEAN CORPUSCULAR HGB CONC 34.9 g/dL (33.0-36.5); MEAN CORPUSCULAR VOLUME 87.6 FL (78-98); MEAN PLATELET VOLUME 7.7 FL (7.4-10.4); MONOCYTES % (AUTO) 13.6 % (2-12); NEUTROPHILS # (AUTO) 3.9 X10'3 (1.8-7.7); NEUTROPHILS % (AUTO) 52.8 % (42-75); PLATELET COUNT 292 X10'3 (140-440); RED BLOOD COUNT 4.22 X10'6 (4.70-6.10); RED CELL DISTRIBUTION WIDTH 12.9 % (11.5-14.5); WHITE BLOOD COUNT 7.3 X10'3 (4.5-11.0)
[2024-11-15 06:21] LABS: ALBUMIN 3.1 G/DL (3.4-5.0); ANION GAP 8 (8-16); BLOOD UREA NITROGEN 13 MG/DL (7-18); BUN/CREATININE RATIO 17.3 (10.0-20.0); CALCIUM 8.9 MG/DL (8.5-10.1); CHLORIDE 103 MMOL/L (99-107); CREATININE 0.75 MG/DL (0.60-1.10); GLUCOSE 239 MG/DL (70-104); POTASSIUM 4.2 MMOL/L (3.5-5.1); SODIUM 138 MMOL/L (135-145); TOTAL CARBON DIOXIDE 27.5 MMOL/L (24-32); eCRCL 101 ML/MIN; eGFR > 90 ML/MIN
[2024-11-15 11:00] VITALS: BP 126/74; PULSE 93; RESP 16; TEMP 98.5; O2SAT 95
[2024-11-15] MEDS: VANCOMYCIN LEVEL IV ONE (14:01)
[2024-11-15 18:00] VITALS: BP 109/73; PULSE 91; RESP 18; TEMP 98.1; O2SAT 97
[2024-11-15 20:00] VITALS: RESP 18; O2SAT 95
[2024-11-15 22:00] VITALS: BP 146/94; PULSE 101; RESP 20; TEMP 98.8; O2SAT 97
[2024-11-16 06:01] LABS: BASOPHILS % (AUTO) 0.5 % (0-1); EOSINOPHILS # (AUTO) 0.1 X10'3 (0-0.9); EOSINOPHILS % (AUTO) 1.9 % (0-6); HEMATOCRIT 39.5 % (42.0-52.0); HEMOGLOBIN 13.6 g/dl (14.0-17.9); LYMPHOCYTES # (AUTO) 2.5 X10'3 (1.1-4.8); LYMPHOCYTES % (AUTO) 32.9 % (21-51); MEAN CORPUSCULAR HEMOGLOBIN 30.2 PG (27.0-31.0); MEAN CORPUSCULAR HGB CONC 34.3 g/dL (33.0-36.5); MEAN CORPUSCULAR VOLUME 88.1 FL (78-98); MEAN PLATELET VOLUME 7.6 FL (7.4-10.4); MONOCYTES # (AUTO) 0.9 X10'3 (0-0.9); MONOCYTES % (AUTO) 11.8 % (2-12); NEUTROPHILS # (AUTO) 4.1 X10'3 (1.8-7.7); NEUTROPHILS % (AUTO) 52.9 % (42-75); PLATELET COUNT 314 X10'3 (140-440); RED BLOOD COUNT 4.49 X10'6 (4.70-6.10); RED CELL DISTRIBUTION WIDTH 12.9 % (11.5-14.5); WHITE BLOOD COUNT 7.7 X10'3 (4.5-11.0)
[2024-11-16 06:12] LABS: ALBUMIN 3.3 G/DL (3.4-5.0); ANION GAP 9 (8-16); BLOOD UREA NITROGEN 13 MG/DL (7-18); BUN/CREATININE RATIO 19.4 (10.0-20.0); CALCIUM 9.2 MG/DL (8.5-10.1); CHLORIDE 104 MMOL/L (99-107); CREATININE 0.67 MG/DL (0.60-1.10); GLUCOSE 220 MG/DL (70-104); POTASSIUM 4.1 MMOL/L (3.5-5.1); SODIUM 138 MMOL/L (135-145); TOTAL CARBON DIOXIDE 25.1 MMOL/L (24-32); eCRCL 113 ML/MIN; eGFR > 90 ML/MIN
[2024-11-16 07:20] VITALS: BP 141/80; PULSE 83; RESP 20; TEMP 97.9; O2SAT 95
[2024-11-16 08:07] VITALS: RESP 18
[2024-11-16 10:00] VITALS: BP 114/67; PULSE 95; RESP 14; TEMP 97.6; O2SAT 96
[2024-11-16] MEDS: metroNIDAZOLE 500mg tablet PO SCH (10:42)
[2024-11-16] MEDS: levoFLOXACIN 750MG TABLET PO SCH (10:42)
[2024-11-16] MEDS ORDERED: LEVO750T68 PO (10:44)
[2024-11-16] MEDS ORDERED: HYDR-3964 PO (10:44)
[2024-11-16] MEDS ORDERED: METR-159 PO (10:44)
[2024-11-16] MEDS ORDERED: LACT1CAP26 PO (11:57)
[2024-11-16] MEDS ORDERED: HYDR-3965 PO (12:35)
== END 2024-11-16 15:17 | disposition home or self-care (01) | DRG 872 ==
LOC: ER 00:53 → ED HOLD 03:47 → EDBEDREQ 12:10 → SUR 3N 12:57
PROVIDERS: ADMIT Internal Medicine Critical Care Medicine; ATTEND Internal Medicine
DX: A41.9 Sepsis, unspecified organism (principal); L03.116 Cellulitis of left lower limb; M86.8X7 Other osteomyelitis, ankle and foot; E11.69 Type 2 diabetes mellitus with other specified complication; I10 Essential (primary) hypertension; E11.42 Type 2 diabetes mellitus with diabetic polyneuropathy; E66.9 Obesity, unspecified; Z20.822 Contact with and (suspected) exposure to COVID-19; E78.00 Pure hypercholesterolemia, unspecified; E11.65 Type 2 diabetes mellitus with hyperglycemia; Z85.46 Personal history of malignant neoplasm of prostate; Z88.2 Allergy status to sulfonamides; Z88.1 Allergy status to other antibiotic agents; Z91.013 Allergy to seafood; Z79.82 Long term (current) use of aspirin; Z79.899 Other long term (current) drug therapy; Z79.84 Long term (current) use of oral hypoglycemic drugs; Z79.4 Long term (current) use of insulin; Z83.3 Family history of diabetes mellitus; Z68.32 Body mass index [BMI] 32.0-32.9, adult
CPT/HCPCS: 36415; 71045; 73620; 73720; 80048; 80053; 80061; 80202; 80305; 81001; 82948; 83036; 83605; 83735; 84145; 85025; 87040; 87081; 87502; 87503; 87811; 97116; 97161; 99285; A6449; A9575; G0378; J1650; J1815; J2543; J3370; J3372

== ENCOUNTER 2025-01-04 18:48 | Inpatient (IN) | payer OTHER ==
[~2025-01-04] VITALS: Ht 165.1 cm; Wt 89.2 kg
[2025-01-04] MEDS: normal saline 1000ml 1,000 ML IV SCH (01:25)
[~2025-01-04 18:48] MED LIST changes: +LACT1CAP26 PO; +LEVO750T68 PO; +METR-159 PO; -SILD100T70 PO
[2025-01-04 22:52] LABS: BASOPHILS % (AUTO) 0.5 % (0-1); EOSINOPHILS # (AUTO) 0.1 X10'3 (0-0.9); EOSINOPHILS % (AUTO) 1.3 % (0-6); HEMATOCRIT 43.5 % (42.0-52.0); HEMOGLOBIN 14.8 g/dl (14.0-17.9); LYMPHOCYTES # (AUTO) 3.2 X10'3 (1.1-4.8); LYMPHOCYTES % (AUTO) 31.4 % (21-51); MEAN CORPUSCULAR HEMOGLOBIN 29.4 PG (27.0-31.0); MEAN CORPUSCULAR VOLUME 86.3 FL (78-98); MEAN PLATELET VOLUME 7.4 FL (7.4-10.4); MONOCYTES # (AUTO) 0.9 X10'3 (0-0.9); MONOCYTES % (AUTO) 9.3 % (2-12); NEUTROPHILS # (AUTO) 5.9 X10'3 (1.8-7.7); NEUTROPHILS % (AUTO) 57.5 % (42-75); PLATELET COUNT 311 X10'3 (140-440); RED BLOOD COUNT 5.04 X10'6 (4.70-6.10); RED CELL DISTRIBUTION WIDTH 13.3 % (11.5-14.5); WHITE BLOOD COUNT 10.2 X10'3 (4.5-11.0)
[2025-01-04 23:05] LABS: ALBUMIN 3.8 G/DL (3.4-5.0); ANION GAP 9 (8-16); BLOOD UREA NITROGEN 11 MG/DL (7-18); BUN/CREATININE RATIO 17.5 (10.0-20.0); CALCIUM 9.7 MG/DL (8.5-10.1); CHLORIDE 99 MMOL/L (99-107); CREATININE 0.63 MG/DL (0.60-1.10); GLUCOSE 296 MG/DL (70-104); POTASSIUM 4.1 MMOL/L (3.5-5.1); SODIUM 137 MMOL/L (135-145); TOTAL CARBON DIOXIDE 29.1 MMOL/L (24-32); eCRCL 121 ML/MIN; eGFR > 90 ML/MIN
[2025-01-04] MEDS: normal saline 1000ML IV soln IVB ONE (23:30)
[2025-01-04] MEDS ORDERED: HYDR-3964 (23:33)
[2025-01-04] MEDS ORDERED: LANTUS SQ (23:33)
[2025-01-04] MEDS ORDERED: mag hydrox/Alum hydrox/simeth 30ml oral suspension PO PRN (23:45)
[2025-01-04] MEDS ORDERED: potassium Cl 40MEQ/1/2NS 520ml 520 ML IV PRN (23:45)
[2025-01-04] MEDS ORDERED: magnesium sulf-water 2g/50mL 50 ML IV PRN (23:45)
[2025-01-04] MEDS ORDERED: HYDROcodone/acetaminophen 5mg/325mg tablet PO PRN (23:45)
[2025-01-04] MEDS ORDERED: magnesium sulf-water 4G/100mL 100 ML IV PRN (23:45)
[2025-01-04] MEDS ORDERED: magnesium hydroxide 30ml (MOM) UD suspension PO PRN (23:45)
[2025-01-04] MEDS ORDERED: magnesium Cl slow-release 64mg tablet PO PRN (23:45)
[2025-01-04] MEDS ORDERED: ondansetron/PF 4mg/2ml inj IV PRN (23:45)
[2025-01-04] MEDS ORDERED: potassium Cl 20 mEq SR tablet PO PRN ×2 (23:45)
[2025-01-05 01:00] VITALS: BP 144/87; PULSE 87; RESP 16; TEMP 97.8; O2SAT 97
[2025-01-05] MEDS ORDERED: DEXTROSE 15 GM of carb/4 tabs (each vial/BOTTLE has 4 tablets) PO PRN ×2 (01:45)
[2025-01-05] MEDS ORDERED: glucagon, human recombinant 1mg kit SUBCUT PRN (01:45)
[2025-01-05] MEDS ORDERED: dextrose 50%-water 50ml dispensing syringe IV PRN ×2 (01:45)
[2025-01-05] MEDS: piperacillin/tazo 4.5gm/100ml 100 ML IV SCH (01:57)
[2025-01-05 03:08] LABS: BASOPHILS % (AUTO) 0.3 % (0-1); EOSINOPHILS # (AUTO) 0.2 X10'3 (0-0.9); EOSINOPHILS % (AUTO) 1.6 % (0-6); HEMATOCRIT 39.1 % (42.0-52.0); HEMOGLOBIN 13.2 g/dl (14.0-17.9); LYMPHOCYTES # (AUTO) 3.4 X10'3 (1.1-4.8); LYMPHOCYTES % (AUTO) 34.2 % (21-51); MEAN CORPUSCULAR HEMOGLOBIN 29.6 PG (27.0-31.0); MEAN CORPUSCULAR HGB CONC 33.8 g/dL (33.0-36.5); MEAN CORPUSCULAR VOLUME 87.5 FL (78-98); MEAN PLATELET VOLUME 7.3 FL (7.4-10.4); MONOCYTES % (AUTO) 9.9 % (2-12); NEUTROPHILS # (AUTO) 5.4 X10'3 (1.8-7.7); PLATELET COUNT 282 X10'3 (140-440); RED BLOOD COUNT 4.47 X10'6 (4.70-6.10); RED CELL DISTRIBUTION WIDTH 13.4 % (11.5-14.5)
[2025-01-05 03:12] LABS: BILIRUBIN,URINE NEGATIVE (Neg); CLARITY,URINE CLEAR (Clear); COLOR,URINE YELLOW (Yellow); GLUCOSE, URINE >=1000 mg/dl (Neg); KETONES,URINE 15 mg/dl (Neg); LEUKOCYTE ESTERASE ,URINE NEGATIVE (Neg); NITRITES, URINE NEGATIVE (Neg); OCCULT BLOOD,URINE TRACE-INTACT (Neg); PROTEIN,URINE NEGATIVE (Neg); UROBILINOGEN,URINE 0.2 E.U/dL (0.2-1.0)
[2025-01-05 03:13] LABS: UA COLLECTION TYPE URINAL
[2025-01-05 03:20] LABS: ALANINE AMINOTRANSFERASE 39 U/L (12-78); ALBUMIN 3.2 G/DL (3.4-5.0); ALBUMIN/GLOBULIN RATIO 0.9 (1.1-1.5); ALKALINE PHOSPHATASE 87 IU/L (46-116); ANION GAP 7 (8-16); ASPARTATE AMINO TRANSFERASE 19 U/L (10-37); BILIRUBIN,TOTAL 0.3 MG/DL (0.1-1.0); BLOOD UREA NITROGEN 11 MG/DL (7-18); BUN/CREATININE RATIO 15.3 (10.0-20.0); CALCIUM 8.8 MG/DL (8.5-10.1); CHLORIDE 101 MMOL/L (99-107); CREATININE 0.72 MG/DL (0.60-1.10); GLUCOSE 279 MG/DL (70-104); MAGNESIUM 1.5 MG/DL (1.5-2.4); POTASSIUM 4.1 MMOL/L (3.5-5.1); SODIUM 137 MMOL/L (135-145); TOTAL CARBON DIOXIDE 28.8 MMOL/L (24-32); TOTAL PROTEIN 6.7 G/DL (6.4-8.2); eCRCL 106 ML/MIN; eGFR > 90 ML/MIN
[2025-01-05 03:24] LABS: BACTERIA,URINE NONE SEEN /HPF (Neg); RBC,URINE 0-2 /HPF (0-2); SQUAMOUS EPITHELIAL CELL,UR FEW /LPF (FEW); WBC,URINE 0-4 /HPF (0-4)
[2025-01-05] MEDS: K and/or MAG REPLACEMENT MC SCH (06:32)
[2025-01-05] MEDS: docusate sod 100mg capsule PO SCH (06:32)
[2025-01-05] MEDS: heparin, porcine 5000 units/ml vial SQ SCH (06:33)
[2025-01-05] MEDS: piperacillin/tazo 4.5gm/100ml 100 ML IV ONE (06:34)
[2025-01-05] MEDS: INSULIN LISPRO 100 UNIT/ML INSULN.PEN MULTI-DOSE SQ SCH (06:46)
[2025-01-05 07:15] VITALS: RESP 18; O2SAT 96
[2025-01-05 07:31] VITALS: RESP 18; O2SAT 96
[2025-01-05] MEDS ORDERED: INSU100C4 SQ (09:09)
[2025-01-05] MEDS ORDERED: LACT1CAP74 PO (09:09)
[2025-01-05] MEDS ORDERED: ATOR10TA70 PO (09:14)
[2025-01-05] MEDS: lisinopril 10 MG tablet PO SCH (09:55)
[2025-01-05] MEDS: insulin glargine (Lantus) pen - multi-dose SQ SCH (10:39)
[2025-01-05] MEDS ORDERED: FLU VACC TS2024-25(6MOS UP)/PF 45 MCG/0.5 ML SYRINGE IMVAC ONE (16:00)
[2025-01-05 20:00] VITALS: RESP 16; O2SAT 95
[2025-01-05 22:00] VITALS: BP 118/73; PULSE 86; RESP 13; TEMP 97.8; O2SAT 96
[2025-01-06 05:49] LABS: BASOPHILS % (AUTO) 0.5 % (0-1); EOSINOPHILS # (AUTO) 0.1 X10'3 (0-0.9); EOSINOPHILS % (AUTO) 1.8 % (0-6); HEMATOCRIT 40.3 % (42.0-52.0); HEMOGLOBIN 13.6 g/dl (14.0-17.9); LYMPHOCYTES # (AUTO) 2.5 X10'3 (1.1-4.8); MEAN CORPUSCULAR HEMOGLOBIN 29.3 PG (27.0-31.0); MEAN CORPUSCULAR HGB CONC 33.8 g/dL (33.0-36.5); MEAN CORPUSCULAR VOLUME 86.5 FL (78-98); MEAN PLATELET VOLUME 7.4 FL (7.4-10.4); MONOCYTES # (AUTO) 0.7 X10'3 (0-0.9); NEUTROPHILS # (AUTO) 4.4 X10'3 (1.8-7.7); NEUTROPHILS % (AUTO) 56.7 % (42-75); PLATELET COUNT 285 X10'3 (140-440); RED BLOOD COUNT 4.66 X10'6 (4.70-6.10); RED CELL DISTRIBUTION WIDTH 13.4 % (11.5-14.5); WHITE BLOOD COUNT 7.7 X10'3 (4.5-11.0)
[2025-01-06 06:00] VITALS: BP 131/79; PULSE 82; RESP 18; TEMP 96.8; O2SAT 97
[2025-01-06] MEDS: acetaminophen 325mg tablet PO PRN (06:05)
[2025-01-06 06:09] LABS: ALANINE AMINOTRANSFERASE 42 U/L (12-78); ALBUMIN 3.2 G/DL (3.4-5.0); ALBUMIN/GLOBULIN RATIO 0.9 (1.1-1.5); ALKALINE PHOSPHATASE 83 IU/L (46-116); ANION GAP 6 (8-16); ASPARTATE AMINO TRANSFERASE 27 U/L (10-37); BILIRUBIN,TOTAL 0.4 MG/DL (0.1-1.0); BLOOD UREA NITROGEN 11 MG/DL (7-18); CHLORIDE 102 MMOL/L (99-107); CREATININE 0.61 MG/DL (0.60-1.10); GLUCOSE 228 MG/DL (70-104); MAGNESIUM 1.8 MG/DL (1.5-2.4); SODIUM 138 MMOL/L (135-145); TOTAL CARBON DIOXIDE 30.1 MMOL/L (24-32); TOTAL PROTEIN 6.7 G/DL (6.4-8.2); eCRCL 125 ML/MIN; eGFR > 90 ML/MIN
[2025-01-06 10:00] VITALS: BP 165/80; PULSE 71; RESP 19; TEMP 97; O2SAT 99
[2025-01-06] MEDS: piperacillin/tazo 4.5gm/100ml 100 ML IV SCH (15:43)
[2025-01-06 18:00] VITALS: BP 115/76; PULSE 73; RESP 16; TEMP 97.8; O2SAT 96
[2025-01-06 22:00] VITALS: BP 116/80; PULSE 86; RESP 12; TEMP 98.7; O2SAT 98
[2025-01-07] MEDS: HYDROcodone/acetaminophen 10/325mg tab PO PRN
[2025-01-07 06:00] VITALS: BP 127/86; PULSE 82; RESP 15; TEMP 98.5; O2SAT 97
[2025-01-07 06:11] LABS: BASOPHILS % (AUTO) 0.3 % (0-1); EOSINOPHILS # (AUTO) 0.2 X10'3 (0-0.9); EOSINOPHILS % (AUTO) 1.9 % (0-6); HEMATOCRIT 39.5 % (42.0-52.0); HEMOGLOBIN 13.6 g/dl (14.0-17.9); LYMPHOCYTES # (AUTO) 2.7 X10'3 (1.1-4.8); MEAN CORPUSCULAR HGB CONC 34.4 g/dL (33.0-36.5); MEAN PLATELET VOLUME 7.4 FL (7.4-10.4); MONOCYTES # (AUTO) 0.7 X10'3 (0-0.9); MONOCYTES % (AUTO) 8.8 % (2-12); NEUTROPHILS # (AUTO) 4.4 X10'3 (1.8-7.7); PLATELET COUNT 261 X10'3 (140-440); RED BLOOD COUNT 4.55 X10'6 (4.70-6.10); RED CELL DISTRIBUTION WIDTH 13.2 % (11.5-14.5)
[2025-01-07 06:39] LABS: ALANINE AMINOTRANSFERASE 42 U/L (12-78); ALBUMIN 3.2 G/DL (3.4-5.0); ALBUMIN/GLOBULIN RATIO 0.9 (1.1-1.5); ALKALINE PHOSPHATASE 81 IU/L (46-116); ANION GAP 5 (8-16); ASPARTATE AMINO TRANSFERASE 24 U/L (10-37); BILIRUBIN,TOTAL 0.3 MG/DL (0.1-1.0); BLOOD UREA NITROGEN 8 MG/DL (7-18); BUN/CREATININE RATIO 14.8 (10.0-20.0); CALCIUM 8.7 MG/DL (8.5-10.1); CHLORIDE 103 MMOL/L (99-107); CREATININE 0.54 MG/DL (0.60-1.10); GLUCOSE 227 MG/DL (70-104); MAGNESIUM 1.8 MG/DL (1.5-2.4); POTASSIUM 3.9 MMOL/L (3.5-5.1); SODIUM 137 MMOL/L (135-145); TOTAL CARBON DIOXIDE 29.4 MMOL/L (24-32); TOTAL PROTEIN 6.8 G/DL (6.4-8.2); eCRCL 141 ML/MIN; eGFR > 90 ML/MIN
[2025-01-07 06:50] VITALS: BP 127/86; PULSE 82; RESP 15; TEMP 98.5; O2SAT 97
[2025-01-07 10:00] VITALS: BP 130/85; PULSE 74; RESP 14; TEMP 97.4; O2SAT 95
[2025-01-07] MEDS: FLU VACC TS2024-25(6MOS UP)/PF 45 MCG/0.5 ML SYRINGE IMVAC ONE (16:18)
[2025-01-07 18:00] VITALS: BP 144/86; PULSE 82; RESP 22; TEMP 96.8; O2SAT 96
[2025-01-07 20:00] VITALS: RESP 22; O2SAT 96
[2025-01-07] MEDS: insulin glargine (Lantus) pen - multi-dose SQ SCH (20:58)
[2025-01-07 22:00] VITALS: BP 120/78; PULSE 86; RESP 18; TEMP 97.6; O2SAT 95
[2025-01-08 03:29] LABS: BASOPHILS % (AUTO) 0.4 % (0-1); EOSINOPHILS # (AUTO) 0.1 X10'3 (0-0.9); EOSINOPHILS % (AUTO) 1.5 % (0-6); HEMATOCRIT 38.2 % (42.0-52.0); HEMOGLOBIN 13.3 g/dl (14.0-17.9); LYMPHOCYTES % (AUTO) 36.7 % (21-51); MEAN CORPUSCULAR HEMOGLOBIN 30.1 PG (27.0-31.0); MEAN CORPUSCULAR HGB CONC 34.8 g/dL (33.0-36.5); MEAN CORPUSCULAR VOLUME 86.5 FL (78-98); MEAN PLATELET VOLUME 7.2 FL (7.4-10.4); MONOCYTES # (AUTO) 0.8 X10'3 (0-0.9); MONOCYTES % (AUTO) 9.7 % (2-12); NEUTROPHILS # (AUTO) 4.3 X10'3 (1.8-7.7); NEUTROPHILS % (AUTO) 51.7 % (42-75); PLATELET COUNT 258 X10'3 (140-440); RED BLOOD COUNT 4.42 X10'6 (4.70-6.10); RED CELL DISTRIBUTION WIDTH 13.5 % (11.5-14.5); WHITE BLOOD COUNT 8.3 X10'3 (4.5-11.0)
[2025-01-08 03:47] LABS: ALANINE AMINOTRANSFERASE 44 U/L (12-78); ALBUMIN 3.1 G/DL (3.4-5.0); ALBUMIN/GLOBULIN RATIO 0.9 (1.1-1.5); ALKALINE PHOSPHATASE 79 IU/L (46-116); ANION GAP 6 (8-16); ASPARTATE AMINO TRANSFERASE 24 U/L (10-37); BILIRUBIN,TOTAL 0.4 MG/DL (0.1-1.0); BLOOD UREA NITROGEN 11 MG/DL (7-18); BUN/CREATININE RATIO 13.9 (10.0-20.0); CALCIUM 8.7 MG/DL (8.5-10.1); CHLORIDE 99 MMOL/L (99-107); CREATININE 0.79 MG/DL (0.60-1.10); GLUCOSE 254 MG/DL (70-104); MAGNESIUM 1.8 MG/DL (1.5-2.4); POTASSIUM 3.9 MMOL/L (3.5-5.1); SODIUM 135 MMOL/L (135-145); TOTAL CARBON DIOXIDE 29.7 MMOL/L (24-32); TOTAL PROTEIN 6.6 G/DL (6.4-8.2); eCRCL 96 ML/MIN; eGFR > 90 ML/MIN
[2025-01-08 06:00] VITALS: BP 111/71; PULSE 88; RESP 15; TEMP 97.9; O2SAT 95
[2025-01-08 08:00] VITALS: RESP 16; O2SAT 95
[2025-01-08 10:00] VITALS: BP 118/71; PULSE 72; RESP 16; TEMP 98; O2SAT 95
[2025-01-08 18:00] VITALS: BP 108/75; PULSE 105; RESP 15; TEMP 97.7; O2SAT 94
[2025-01-08 20:00] VITALS: RESP 15; O2SAT 94
[2025-01-08 22:00] VITALS: BP 120/75; PULSE 94; RESP 19; TEMP 98; O2SAT 96
[2025-01-09 06:04] LABS: BASOPHILS # (AUTO) 0.1 X10'3 (0-0.2); EOSINOPHILS # (AUTO) 0.1 X10'3 (0-0.9); HEMATOCRIT 37.9 % (42.0-52.0); MEAN CORPUSCULAR HGB CONC 34.5 g/dL (33.0-36.5); MONOCYTES # (AUTO) 0.7 X10'3 (0-0.9); RED BLOOD COUNT 4.33 X10'6 (4.70-6.10); WHITE BLOOD COUNT 7.4 X10'3 (4.5-11.0)
[2025-01-09 06:06] LABS: BASOPHILS % (AUTO) 0.9 % (0-1); EOSINOPHILS % (AUTO) 1.5 % (0-6); LYMPHOCYTES # (AUTO) 2.8 X10'3 (1.1-4.8); LYMPHOCYTES % (AUTO) 37.9 % (21-51); MEAN CORPUSCULAR HEMOGLOBIN 30.1 PG (27.0-31.0); MEAN CORPUSCULAR VOLUME 87.4 FL (78-98); MONOCYTES % (AUTO) 9.9 % (2-12); NEUTROPHILS # (AUTO) 3.7 X10'3 (1.8-7.7); NEUTROPHILS % (AUTO) 49.8 % (42-75); PLATELET COUNT 268 X10'3 (140-440); RED CELL DISTRIBUTION WIDTH 13.6 % (11.5-14.5)
[2025-01-09 06:38] LABS: ALANINE AMINOTRANSFERASE 47 U/L (12-78); ALBUMIN 3.1 G/DL (3.4-5.0); ALBUMIN/GLOBULIN RATIO 0.9 (1.1-1.5); ALKALINE PHOSPHATASE 82 IU/L (46-116); ANION GAP 9 (8-16); ASPARTATE AMINO TRANSFERASE 32 U/L (10-37); BILIRUBIN,TOTAL 0.3 MG/DL (0.1-1.0); BLOOD UREA NITROGEN 11 MG/DL (7-18); BUN/CREATININE RATIO 17.2 (10.0-20.0); CALCIUM 9.1 MG/DL (8.5-10.1); CHLORIDE 101 MMOL/L (99-107); CREATININE 0.64 MG/DL (0.60-1.10); GLUCOSE 249 MG/DL (70-104); POTASSIUM 4.1 MMOL/L (3.5-5.1); SODIUM 137 MMOL/L (135-145); TOTAL CARBON DIOXIDE 27.4 MMOL/L (24-32); TOTAL PROTEIN 6.7 G/DL (6.4-8.2); eCRCL 119 ML/MIN; eGFR > 90 ML/MIN
[2025-01-09 07:09] VITALS: BP 108/75; PULSE 105; RESP 15; TEMP 97.7; O2SAT 94
[2025-01-09 07:51] VITALS: BP_SYST 108; PULSE 105
[2025-01-09] MEDS: DAPTOmycin inj. 700 MG in normal saline 100ml IV soln 100 ML IV SCH (08:02)
[2025-01-09] MEDS: ertapenem sod inj 1 GM in normal saline 100ml IV soln 110 ML IV SCH (08:07)
[2025-01-09] MEDS ORDERED: HYDR-3972 PO (11:06)
[2025-01-09 12:46] VITALS: RESP 18
== END 2025-01-09 13:30 | disposition home or self-care (01) | DRG 638 ==
LOC: ER 18:50 → ED HOLD 23:47 → ORTHO 4S 01-05 07:08
PROVIDERS: ADMIT Internal Medicine Sleep Medicine; ATTEND Internal Medicine
PROC: 02HV33Z Insertion of Infusion Device into Superior Vena Cava, Percutaneous Approach (ICD-10-PCS; principal; 2025-01-06)
PROC: B548ZZA Ultrasonography of Superior Vena Cava, Guidance (ICD-10-PCS; 2025-01-06)
DX: E11.69 Type 2 diabetes mellitus with other specified complication (principal); L03.116 Cellulitis of left lower limb; M86.8X7 Other osteomyelitis, ankle and foot; E11.42 Type 2 diabetes mellitus with diabetic polyneuropathy; E78.00 Pure hypercholesterolemia, unspecified; I10 Essential (primary) hypertension; Z83.3 Family history of diabetes mellitus; Z85.07 Personal history of malignant neoplasm of pancreas; Z85.46 Personal history of malignant neoplasm of prostate; Z79.4 Long term (current) use of insulin; Z79.84 Long term (current) use of oral hypoglycemic drugs
CPT/HCPCS: 36410; 36415; 76942; 80048; 80053; 81001; 82948; 83605; 83735; 84132; 84145; 85025; 87040; 87081; 90686; 96360; 97116; 97161; 99285; A4333; C1751; G0378; J0878; J1335; J1644; J1815; J2543; J7030

== ENCOUNTER 2025-04-02 16:12 | Inpatient (IN) | payer MEDICAID, OTHER ==
[~2025-04-02] VITALS: Ht 165.1 cm; Wt 92.9 kg
[~2025-04-02 16:12] MED LIST changes: +ATOR10TA70 PO; -ATOR40TA PO; +HYDR-3972 PO; +INSU100C4 SQ; -INSU100V5; -LACT1CAP26 PO; +LACT1CAP74 PO; +LANTUS SQ; -LEVO750T68 PO; -METR-159 PO; -NPH,100I SQ
[2025-04-02 21:15] LABS: BASOPHILS % (AUTO) 0.4 % (0-1); EOSINOPHILS # (AUTO) 0.1 X10'3 (0-0.9); EOSINOPHILS % (AUTO) 1.2 % (0-6); HEMATOCRIT 42.3 % (42.0-52.0); HEMOGLOBIN 14.7 g/dl (14.0-17.9); LYMPHOCYTES # (AUTO) 2.4 X10'3 (1.1-4.8); LYMPHOCYTES % (AUTO) 21.1 % (21-51); MEAN CORPUSCULAR HEMOGLOBIN 28.8 PG (27.0-31.0); MEAN CORPUSCULAR HGB CONC 34.6 g/dL (33.0-36.5); MEAN CORPUSCULAR VOLUME 83.2 FL (78-98); MEAN PLATELET VOLUME 7.4 FL (7.4-10.4); MONOCYTES % (AUTO) 9.1 % (2-12); NEUTROPHILS # (AUTO) 7.8 X10'3 (1.8-7.7); NEUTROPHILS % (AUTO) 68.2 % (42-75); PLATELET COUNT 298 X10'3 (140-440); RED BLOOD COUNT 5.09 X10'6 (4.70-6.10); RED CELL DISTRIBUTION WIDTH 13.6 % (11.5-14.5); WHITE BLOOD COUNT 11.5 X10'3 (4.5-11.0)
[2025-04-02 21:27] LABS: ALANINE AMINOTRANSFERASE 45 U/L (12-78); ALBUMIN 3.6 G/DL (3.4-5.0); ALBUMIN/GLOBULIN RATIO 0.8 (1.1-1.5); ALKALINE PHOSPHATASE 108 IU/L (46-116); ANION GAP 9 (8-16); ASPARTATE AMINO TRANSFERASE 30 U/L (10-37); BILIRUBIN,TOTAL 0.5 MG/DL (0.1-1.0); BLOOD UREA NITROGEN 12 MG/DL (7-18); BUN/CREATININE RATIO 15.6 (10.0-20.0); C-REACTIVE PROTEIN 2.99 MG/DL (0.0-0.5); CALCIUM 9.2 MG/DL (8.5-10.1); CHLORIDE 101 MMOL/L (99-107); CREATININE 0.77 MG/DL (0.60-1.10); GLUCOSE 235 MG/DL (70-104); POTASSIUM 3.9 MMOL/L (3.5-5.1); SODIUM 138 MMOL/L (135-145); TOTAL CARBON DIOXIDE 28.4 MMOL/L (24-32); eCRCL 98 ML/MIN; eGFR > 90 ML/MIN
[2025-04-02] MEDS ORDERED: iohexol 300mg/ml 100ml inj. ONE (22:01)
[2025-04-03] VITALS (7 sets, daily range): BP systolic 91–146; BP diastolic 67–95; PULSE 90–100; RESP 16–18; TEMP 98.1–99.4; O2SAT 94–97
--- NOTE | 2025-04-03 00:03 | RADIOLOGY REPORT ---
EXAM: CT CT LOWER EXTREMITY W/ IV CONTRAST INDICATION: cellulitis EXAM DATE: 04/02/2025 10:08 PM COMPARISON: MR MRI LOWER EXTREMITY LEFT on DOS: 11/13/24, TECHNIQUE: Multiple axial CT images of the left lower extremity from the mid tibia and fibula through the toes were obtained using bone algorithm. Axial and coronal reformatting was done. Bone and soft tissue windows were reviewed. 100 mL Omnipaque 300 injected Radiation Dose Information: CT Dose: CTDI volume is 0.14+ 7.62 mGy. Dose-length product is 307.01 mGy*cm Findings: Prior amputation of the 5th phalanges. Normal mineralization and alignment. Dorsal and plantar calcan eal enthesophytes. There is bony fragmentation of the medial aspect of the navicular (series 3, image 86) as well as sclerosis. There is sclerosis of the medial, intermediate, and lateral cuneiform with areas of bony irregularity and lucency (for example in the proximal medial cuneiform at the joint sp anitra with the navicular (series 602, image 68). There is subcutaneous edema in the visualized left low er extremity extending to the left foot. There is no soft tissue gas or well-formed fluid collection. Overall increased vascularity in the visualized left lower extremity. Impression: 1. Bony fragmentation versus of the medial navicular likely osteomyelitis. 2. Sclerosis of the medial, intermediate, and lateral cuneiforms with areas of bony irregularity and lucency (for example in the proximal medial cuneiform at the joint space with the navicular), also li marcia related to osteomyelitis, possibly a chronic component. 3. Prior amputation of the 5th phalanges. 4. Subcutaneous edema in the visualized left lower extremity extending to the left foot. 5. No drainable abscess or soft tissue gas.
--- NOTE | 2025-04-03 00:33 | Physician Documentation ---
History of Present Illness ~ Chief Complaint: Leg Pain Stated Complaint: WOUND ON FOOT Time Seen by MD: 17:45 Primary Medical Doctor: Dr. Garcia in [facility]. Dr. Farrell (podiatry), Dr. Villanueva (ID) HPI 48-year-old male reports ER with chief complaint of left foot pain. Patient states that he has a history of osteomyelitis to his left foot is required amputation due to diabetic noncompliance. Patient states that he is having swelling to the foot it is concerned that his osteomyelitis may have returned. Patient denies fevers but he does endorse chills. No other complaints at this time Tetanus witin 5 years: Yes Medication Reconciliation Allergies: Coded Allergies: Sulfa (Sulfonamide Antibiotics) (Verified Allergy, Unknown, 11/13/24) clindamycin (Verified Allergy, Unknown, 11/13/24) crab (Unverified Allergy, Unknown, Swollen throat, 11/13/24) melon (Unverified Allergy, Unknown, Itchy throat, 11/13/24) Scheduled Aspirin (Aspir 81), 1 TAB PO DAILY, (Reported) Atorvastatin Calcium (Atorvastatin Calcium), 1 TAB PO DAILY, (Reported) Insulin Aspart (Novolog), 25 UNIT SQ TIDWM, (Reported) Insulin Glargine,Hum.rec.anlog* (Lantus*), 25 UNITS SQ BID, (Reported) Lactobacillus Rhamnosus GG (Culturelle), 1 CAP PO DAILY, (Reported) Lisinopril (Lisinopril), 1 TAB PO DAILY, (Reported) Metformin HCl (Metformin HCl), 1 TAB PO Q12H, (Reported) Scheduled PRN Hydrocodone Bit/Acetaminophen (Hydrocodon-Acetaminophn 10-325 tablet), 1 TAB PO Q4H PRN for SEVERE PAIN 7-10 Past Medical History Past Medical History: Peripheral Neuropathy, High Cholesterol, Hypertension, Diabetes Past Surgical History: no surgical history Patient History: FH: diabetes mellitus MOTHER, , Age: 58, Cause: Kidney failure FH: pancreatic cancer MOTHER, , Age: 58, Cause: Kidney failure FH: prostate cancer Maternal Grandfather Alcohol Use: None Drug Use: marijuana Lives with: Family Lives In: Home Occupation: employed Physical Exam Vital Signs: Temperature: 98.3, Source: Oral, Heart Rate: 94, Respiratory Rate: 16, BP: 144/83, Pulse Oximetry: 100, Weight: 92.900 Oxygen Flow Rate: 0 Physical Exam General: Well developed, well nourished, no distress. HEENT: Atraumatic, normal conjunctiva, moist mucous membranes. Neck: Full range of motion, supple. Respiratory: Lungs clear, no respiratory distress. Chest: No accessory muscle use, nontender. Cardiovascular: Regular rate and rhythm. Gastrointestinal: Soft, nontender, nondistended. Bowel sounds present. Extremities: Left foot exam: Positive for a small toe amputation with surrounding erythema and redness to the amputation site. Positive for tenderness to palpation over the amputation site. Positive brisk cap refill Back: No midline tenderness, no CVA tenderness. Neurologic: Oriented x4. Distal gross motor and sensory intact all four extremities. Moves all 4 extremities spontaneously. Psychiatric: Normal mood and affect. Skin: Normal color, warm and dry. No edema, no ecchymosis Progress Results/Orders Results/Orders Orders - DRAKE NAYAK Culture Blood (04/02/25 20:53) Ct Lower Extremity (04/02/25 22:00) Page Hospitalist (04/03/25 00:24) Fill Out Med Reconciliation (04/03/25 00:24) Ancef 1,000mg/D5w 50ml X2bags (04/03/25 00:24) Completed Orders - DRAKE NAYAK Cbc/Diff (04/02/25 20:53) ESR (04/02/25 20:53) C-Reactive Protein (04/02/25 20:53) CMP (04/02/25 20:53) Lacticsepsis (04/02/25 20:53) Procalcitonin (04/02/25 20:53) Ct Lower Extremity (04/02/25 22:00) Iohexol 300mg/Ml 100ml Inj. (Omnipaque-3 (04/02/25 22:01) Vital Signs 04/02/25 04/02/25 04/02/25 04/02/25 16:20 20:50 20:57 21:38 Temp 98.3 Pulse 111 100 94 Resp 16 16 14 16 B/P (MAP) 164/93 187/100 (129) 144/83 (103) Pulse Ox 97 98 100 O2 Flow Rate 0 0 0 Laboratory Tests Test 04/02/25 21:01 White Blood Count 11.5 H Red Blood Count 5.09 Hemoglobin 14.7 Hematocrit 42.3 Mean Corpuscular Volume 83.2 Mean Corpuscular Hemoglobin 28.8 Mean Corpuscular Hemoglobin Concent 34.6 Red Cell Distribution Width 13.6 Platelet Count 298 Mean Platelet Volume 7.4 Neutrophils (%) (Auto) 68.2 Lymphocytes (%) (Auto) 21.1 Monocytes (%) (Auto) 9.1 Eosinophils (%) (Auto) 1.2 Basophils (%) (Auto) 0.4 Neutrophils # (Auto) 7.8 H Lymphocytes # (Auto) 2.4 Monocytes # (Auto) 1.0 H Eosinophils # (Auto) 0.1 Basophils # (Auto) 0.0 CBC Comment Erythrocyte Sedimentation Rate 18 Sodium Level 138 Potassium Level 3.9 Chloride Level 101 Carbon Dioxide Level 28.4 Anion Gap 9 Blood Urea Nitrogen 12 Creatinine 0.77 Estimated GFR/1.73 m2 > 90 BUN/Creatinine Ratio 15.6 Glucose Level 235 H Lactic Acid Level 1.8 Calcium Level 9.2 Total Bilirubin 0.5 Aspartate Amino Transf (AST/SGOT) 30 Alanine Aminotransferase (ALT/SGPT) 45 Alkaline Phosphatase 108 C-Reactive Protein 2.99 H Total Protein 8.0 Albumin 3.6 Globulin 4.4 H Albumin/Globulin Ratio 0.8 L Procalcitonin < 0.05 Chemistry Comments Microbiology Date/Time Source Procedure Growth Status 04/02/25 21:01 Blood Arm Right Blood Culture - Preliminary NEGATIVE (LESS THAN 24 HOURS) Resulted Medical Decision Making Additional info obtained from: old records Findings After detailed discussion and joint medical decision-making, diagnostic and imaging results were discussed with the patient. At this time patient we will be admitted for symptoms consistent with osteomyelitis due to patient having increased white count and inflammatory markers. Patient's CT scan does confirm this as well which he has been interpreted by myself. Patient was given Ancef and admitted to hospitalist. Patient agrees treatment plan. General Diff Dx:Considerations: Include: Other (Osteomyelitis, cellulitis, abscess) Departure Disposition: ADMITTED INPATIENT Impression: Primary Impression: Osteomyelitis of left foot Additional Impressions: Obesity (BMI 30.0-34.9) Cellulitis of left foot Diabetes mellitus Condition: Stable Referrals: NO PRIMARY CARE PROVIDER (PCP) Education Educated: Patient Educated regarding: diagnosis, treatment Critical Care Note Total Time (mins): 55 Critical Care Note Sepsis and osteomyelitis Signature Scribe Signature: None used Attestation: Scribed for Drake Nayak by Drake BRICENO . 04/03/25 00:33 DRAKE NAYAK April 03, 2025 00:33
[2025-04-03] MEDS ORDERED: ondansetron/PF 4mg/2ml inj IV PRN (01:00)
[2025-04-03] MEDS ORDERED: magnesium sulf-water 4G/100mL 100 ML IV PRN (01:00)
[2025-04-03] MEDS ORDERED: potassium Cl 40MEQ/1/2NS 520ml 520 ML IV PRN (01:00)
[2025-04-03] MEDS ORDERED: magnesium sulf-water 2g/50mL 50 ML IV PRN (01:00)
[2025-04-03] MEDS ORDERED: potassium Cl 20 mEq SR tablet PO PRN ×2 (01:00)
[2025-04-03] MEDS ORDERED: magnesium Cl slow-release 64mg tablet PO PRN (01:00)
[2025-04-03] MEDS ORDERED: mag hydrox/Alum hydrox/simeth 30ml oral suspension PO PRN (01:00)
[2025-04-03] MEDS ORDERED: acetaminophen 325mg tablet PO PRN (01:00)
[2025-04-03] MEDS ORDERED: magnesium hydroxide 30ml (MOM) UD suspension PO PRN (01:00)
[2025-04-03] MEDS: ceFAZolin/D5W- 1GM premix 50 ML IV STA (01:26)
[2025-04-03 01:29] LABS: HEMOGLOBIN A1C 11.3 % (4.5-6.2)
[2025-04-03] MEDS: ceFAZolin/D5W- 1GM premix 50 ML IV ONE (01:31)
[2025-04-03 01:35] LABS: MAGNESIUM 1.9 MG/DL (1.5-2.4); PRO BRAIN NATRIURETIC PEPTIDE < 30 PG/ML (0-125)
[2025-04-03 01:56] LABS: APTT 24 SECONDS (22-32); PROTHROMBIN TIME 10.4 SECONDS (9.0-12.0)
[2025-04-03] MEDS ORDERED: INSU100I61 SQ (02:00)
[2025-04-03] MEDS ORDERED: SEMA0.258 SQ (02:00)
[2025-04-03] MEDS: normal saline 1000ml 1,000 ML IV SCH (02:21)
[2025-04-03] MEDS ORDERED: DEXTROSE 15 GM of carb/4 tabs (each vial/BOTTLE has 4 tablets) PO PRN ×2 (03:05)
[2025-04-03] MEDS ORDERED: glucagon, human recombinant 1mg kit SUBCUT PRN (03:05)
[2025-04-03] MEDS ORDERED: dextrose 50%-water 50ml dispensing syringe IV PRN ×2 (03:05)
[2025-04-03] MEDS: VANCOMYCIN 2GM/400ML H20 (PEG) 400 ML IV ONE ×2 (03:07→03:08)
--- NOTE | 2025-04-03 03:11 | HISTORY AND PHYSICAL-Residence ---
History & Physical Providers to Resident Creating Document: VIVIANA ARZATE, RES ~ History of Present Illness Primary Medical Doctor: Dr. Garcia in [facility]. Dr. Farrell (podiatry), Dr. Villanueva (ID) Reason for Admit\Complaint: Pain in the left foot History of Present Illness 49-year-old male patient with past medical history of poorly controlled type 2 diabetes mellitus, hypertension, dyslipidemia, polyneuropathy came to the hospital with chief complaint of left foot pain. As per patient the patient was admitted to the hospital on [facility] on November at he was diagnosed with osteomyelitis and cellulitis of the left foot. The patient was discharged on oral antibiotics, failed outpatient management. He also finished six week course of IV antibiotics with daptomycin and ertapenem as prescribed by Dr. Villanueva. He finished the antibiotics by February [id number]. The patient also mentioned that on May, he got a 5th toe amputation due to osteomyelitis. The patient reports left foot pain with an intensity of 8/10 mostly when he stands up, described as a sharp type and burning sensation. The pain started one week ago associated with fever causing gait imbalance. He mentions that the pain has been ongoing for about a year now. The patient uses a cane for walking. He went to see his primary care physician and chief mechanical officer. Patient mentions that he takes 25 units Lantus twice daily and Humalog insulin, metformin for the management of his diabetes. He regularly checks his blood sugars at home and mentions that they have not been under control in the recent days. The usual range is between 200 sometimes going to the 400s. Allergies: Coded Allergies: Sulfa (Sulfonamide Antibiotics) (Verified Allergy, Unknown, 11/13/24) clindamycin (Verified Allergy, Unknown, 11/13/24) crab (Unverified Allergy, Unknown, Swollen throat, 11/13/24) melon (Unverified Allergy, Unknown, Itchy throat, 11/13/24) Home Medications Home Medications Active Hydrocodon-Acetaminophn 10-325 tablet (Acetaminophen/Hydrocodone Bitart) 10mg- 325mg Tablet 1 Tab PO Q4H PRN Reported Insulin Lispro Kwikpen U-100 (Insulin Lispro) 100 Unit/Ml Insuln.pen 15 Units SQ Ozempic (Semaglutide) 0.25 Mg/0.368 Ml Pen.injctr 0.25 Mg SQ Q7D Atorvastatin Calcium 10 Mg Tablet 1 Tab PO DAILY Novolog (Insulin Aspart) 100 Unit/Ml Cartridge 25 Unit SQ TIDWM Culturelle (Lactobacillus Rhamnosus GG) 15 Billion Cell Cap.sprink 1 Cap PO DAILY 30 Days Lantus* (Insulin Glargine) 100 Unit/1 Ml Vial 25 Units SQ BID Aspir 81 (Aspirin) 81 Mg Tablet.dr 1 Tab PO DAILY 30 Days Metformin HCl 500 Mg Tablet 1 Tab PO Q12H Lisinopril 10 Mg Tablet 1 Tab PO DAILY Past Medical History Past Medical History Type 2 diabetes mellitus. Hypertension. Mitral valve prolapse at 13 years old. As per patient corrected by itself. Dyslipidemia. Polyneuropathy. COPD. Past Surgical History Surgical History Comment 5th left toe amputation due to osteomyelitis. Cholelithiasis thoracotomy on 2009. Appendectomy in 2006. Carpal tunnel surgery. Tonsillectomy. Renal cyst removal. Neck cyst removal. Family History Family History: FH: diabetes mellitus MOTHER, , Age: 58, Cause: Kidney failure FH: pancreatic cancer MOTHER, , Age: 58, Cause: Kidney failure FH: prostate cancer Maternal Grandfather Past Social History Social History Comment Smoking:The patient quit smoking 11 years ago. He used to smoke two packs a day for at least 30 years Alcohol Use: None Drug Use: Marijuana (The patient reports that he used CBD and marijuana gummies. Last time was 8 months ago.) Lives with: Family Lives In: Home Occupation: employed Smoking: Quit less than 1 year Alcohol Use: None Drug Use: Marijuana Lives with: Family Lives In: Home Occupation: employed ROS ROS Reviewed and negative except for the pertinent positives in HPI Exam Vitals: Vital Signs Date Time Temp Pulse Resp B/P (MAP) Pulse Ox O2 Delivery O2 Flow Rate FiO2 04/03/25 02:00 91 16 129/88 (102) 97 0 04/02/25 16:20 98.3 General: General: Well alert, well oriented, not confused, not agitated, not in acute distress, well cooperated during the physical. HEENT: Conjunctive are pink, sclerae clear, no icterus, pupil is equal in both sides, reactive to light, no ear discharge, no pharyngeal erythema or an edema. Neck: Supple, no JVD, no lymphadenopathy and thyromegaly. Chest: Equal air entry on both lungs, no additional sounds no rhonchi no wheezing at the moment. Cardiovascular: S1-S2 regular sinus rhythm and, regular rate, no gallops, no rubs, no murmurs Abdomen: No visible peristalsis, Bowel sounds present on auscultation, soft, nontender, no guarding, no rigidity. Presence of midline scar. Extremities: Mild edema bilaterally, redness of the plantar area of the left foot. Pain with palpation. Absence of the 5th left toe. Central Nervous System: No focal neurological deficits, no motor or sensory weakness in all 4 extremities, could move all 4 extremities Musculoskeletal: No joint swelling, deformities, inflammations, and no scoliosis and back tenderness Diagnostic Data Last Recorded Lab Results: 04/02/25210004/02/252100 Diagnostic Data: Laboratory Tests Test 04/03/25 01:31 Prothrombin Time 10.4 SECONDS (9.0-12.0) INR International Normalized Ratio 1.0 INR Activated Partial Thromboplast Time 24 SECONDS (22-32) Coagulation Comments Advance Care Planning Advanced Care plannin - 30 Minutes (I spent a total of 17 minutes on reviewing various resuscitative measures/ ACP with the patient at the time of admission. The patient has decided on a full code status) Additional Plan 49-year-old male patient came to the hospital with chief complaint of left foot pain. Osteomyelitis of the left foot: Cellulitis: The patient came to the hospital with chief complaint of left foot pain. Lower extremity CT shows: Impression: 1. Bony fragmentation versus of the medial navicular likely osteomyelitis. 2. Sclerosis of the medial, intermediate, and lateral cuneiforms with areas of bony irregularity and lucency (for example in the proximal medial cuneiform at the joint space with the navicular), also likely related to osteomyelitis, possibly a chronic component. 3. Prior amputation of the 5th phalanges. 4. Subcutaneous edema in the visualized left lower extremity extending to the left foot. ESR is 18 lactic acid is 1.8, CRP slightly elevated at 2.99. Started on IV vancomycin and Zosyn. Follow-up blood cultures. Wound care ordered. Consult Dr. Villanueva and Orthopedic surgeon in the a.m. for adjustment of antibiotics and possible amputation. According to the patient, he had a conversation about amputation with ID specialist previously and he is now ready for amputation. NPO after midnight for any possible procedure. Uncontrolled type 2 diabetes mellitus: Hemoglobin A1c today 11.3. Current glucose levels 235. Started on Lantus 40 units b.i.d. and medium dose sliding scale. Hypertension: Hyperlipidemia Continue home medications lisinopril 10 mg daily and atorvastatin 10 mg, aspirin 81 mg daily Code status: Full code. Diet: 60 carb controlled diet. Pain control: [place], morphine p.r.n.. IV access: PIV. DVT prophylaxis: Heparin. Viviana Guerrero Internal Medicine Resident [facility] Patient evaluated using HIPPA complaint AV device Agree with plan as discussed with resident Wayne Phan MD Date of Service: April 03, 2025 Billing Provider: WAYNE PHAN MD, DEEPIKA BANDI, RES April 03, 2025 03:11 WAYNE PHAN MD April 03, 2025 04:24
[2025-04-03] MEDS: insulin glargine (Lantus) pen - multi-dose SQ ONE (04:02)
[2025-04-03] MEDS: insulin glargine (Lantus) pen - multi-dose SQ SCH (04:04)
[2025-04-03] MEDS: HYDROmorphone inj. 0.5 MG/0.5 ML DISP.SYRIN IV PRN (05:30)
[2025-04-03] MEDS: K and/or MAG REPLACEMENT MC SCH (08:00)
[2025-04-03] MEDS: aspirin 81mg, enteric-coated 1 TAB TABLET.DR PO SCH (08:00)
[2025-04-03] MEDS: heparin, porcine 5000 units/ml vial SQ SCH (08:00)
[2025-04-03] MEDS: docusate sod 100mg capsule PO SCH (08:26)
[2025-04-03] MEDS: lisinopril 10 MG tablet PO SCH (08:27)
[2025-04-03] MEDS: atorvastatin 10mg tablet PO SCH (08:27)
[2025-04-03] MEDS ORDERED: vancomycin/NS 1 GM ADD-VANTAGE 250 ML IV SCH (09:00)
[2025-04-03] MEDS: piperacillin/tazo 3.375gm/50ml 50 ML IV SCH (09:15)
[2025-04-03] MEDS: INSULIN LISPRO 100 UNIT/ML INSULN.PEN MULTI-DOSE SQ SCH (09:50)
[2025-04-03] MEDS: vancomycin/NS 1 GM ADD-VANTAGE 250 ML IV SCH (11:15)
[2025-04-03] MEDS ORDERED: gabapentin 400mg capsule PO SCH (14:40)
--- NOTE | 2025-04-03 14:42 | PROGRESS NOTE- Residence ---
Progress Note - Resident Providers to CC Resident Creating Document: JONE PAGAN RES ~ Antibiotic Timeout Antibiotic Ordered?: Yes Subjective Patient was seen and examined at bedside. He is NPO and waiting for Dr. Luther evaluation. Gabapentin 300 mg twice daily for neuropathic pain initiated. Objective Vital Signs Date Time Temp Pulse Resp B/P (MAP) Pulse Ox O2 Delivery O2 Flow Rate FiO2 04/03/25 10:00 99.4 93 16 142/76 (98) 96 Room Air 04/03/25 08:00 0.0 General: Well alert, well oriented, not confused, not agitated, not in acute distress, well cooperated during the physical. Chest: Equal air entry on both lungs, no additional sounds no rhonchi no wheezing at the moment. Cardiovascular: S1-S2 regular sinus rhythm and, regular rate, no gallops, no rubs, no murmurs Abdomen: No visible peristalsis, Bowel sounds present on auscultation, soft, nontender, no guarding, no rigidity. Presence of midline scar. Extremities: Mild edema bilaterally, redness of the plantar area of the left foot. Pain with palpation. Absence of the 5th left toe. Central Nervous System: No focal neurological deficits, no motor or sensory weakness in all 4 extremities, could move all 4 extremities Musculoskeletal: No joint swelling, deformities, inflammations, and no scoliosis and back tenderness Result Diagram: 04/02/25210004/02/252100 Coagulation Studies Laboratory Tests Test 04/03/25 01:31 Prothrombin Time 10.4 SECONDS (9.0-12.0) INR International Normalized Ratio 1.0 INR Activated Partial Thromboplast Time 24 SECONDS (22-32) Coagulation Comments Advance Care Planning Advanced Care plannin - 30 Minutes Assessment Assessment Patient is a 49-year-old male with a history of poorly controlled diabetes and diabetic neuropathy, presenting with left foot pain. He was previously admitted to [facility] and diagnosed with osteomyelitis, for which she completed a six weeks' course of IV antibiotics in February 2025. He also underwent 5th toe amputation in May 2024. Despite prior treatment, his current presentation suggests ongoing chronic osteomyelitis, indicating a lack of adequate response to previous therapy. I discussed the case with orthopedic surgeon; Dr. Luther, who recommended podiatry evaluation. Dr. Stearns , the roofing layer, was contacted and has ordered an MRI of the left foot along with arterial studies. He plan to evaluate the patient tomorrow the patient should remain NPO after midnight in anticipation of further evaluation and potential intervention. Plan Plan Osteomyelitis of the left foot: Likely chronic Continue IV vancomycin and Zosyn. Preliminary blood cultures negative Wound care consulted Dr. Stearns consulted, ordered MRI & Arterial US Keep NPO after midnight, will evaluate him tomorrow for potential intervention. Poorly controlled DM-2 : HbA1C 11.3 Started on Lantus 40 units b.i.d. and medium dose sliding scale. Hypertension: Hyperlipidemia Continue home medications lisinopril 10 mg daily and atorvastatin 10 mg, aspirin 81 mg daily Code status: Full code. Diet: 60 carb controlled diet. Pain control: [place], morphine p.r.n.. IV access: PIV. DVT prophylaxis: Heparin. Jone Pagan Internal Medicine Resident Date of Service: April 03, 2025 Billing Provider: BENIGNO GARZA MD Common Visit Codes: [id number] INP/OBS CARE(HIGH) JONE PAGAN, RES April 03, 2025 14:42 BENIGNO GARZA MD April 03, 2025 19:01
--- NOTE | 2025-04-03 18:14 | VASCULAR REPORT ---
Left Lower Extremity Arterial Duplex Clinical History: Pain Comparison: [facility] VL ARTERIAL on DOS: 04/28/24 Technique: Duplex Doppler evaluation including color Doppler and spectral/pulsed waveform analysis of the lower extremity arteries was performed. Findings: Left: Peak systolic velocities are less than 150 cm/sec. The waveforms are triphasic. IMPRESSION: No hemodynamically significant stenosis based on peak systolic velocity criteria. REFERENCE VALUES, [facility] ([facility]) vascular Imaging Lab Criteria: Peak systolic velocity rang es (in cm/sec) are as follows: <150 cm/s - <20 % stenosis 150-200 cm/s - 20-49% stenosis 200-300 cm/s - 50-75% stenosis >300 cm/s -> 75% stenosis
[2025-04-03] MEDS: morphine 2 MG/ML inj. syringe IV PRN (19:35)
[2025-04-03] MEDS: gabapentin 300mg capsule PO SCH (19:36)
[2025-04-04] MEDS: VANCOMYCIN LEVEL IV ONE (02:51)
[2025-04-04 02:55] LABS: BASOPHILS % (AUTO) 0.5 % (0-1); EOSINOPHILS # (AUTO) 0.1 X10'3 (0-0.9); EOSINOPHILS % (AUTO) 1.4 % (0-6); HEMATOCRIT 37.5 % (42.0-52.0); HEMOGLOBIN 12.8 g/dl (14.0-17.9); LYMPHOCYTES # (AUTO) 2.1 X10'3 (1.1-4.8); LYMPHOCYTES % (AUTO) 25.6 % (21-51); MEAN CORPUSCULAR HEMOGLOBIN 28.7 PG (27.0-31.0); MEAN CORPUSCULAR VOLUME 84.3 FL (78-98); MEAN PLATELET VOLUME 7.5 FL (7.4-10.4); MONOCYTES # (AUTO) 0.8 X10'3 (0-0.9); MONOCYTES % (AUTO) 9.5 % (2-12); NEUTROPHILS # (AUTO) 5.2 X10'3 (1.8-7.7); PLATELET COUNT 267 X10'3 (140-440); RED BLOOD COUNT 4.45 X10'6 (4.70-6.10); RED CELL DISTRIBUTION WIDTH 13.6 % (11.5-14.5); WHITE BLOOD COUNT 8.3 X10'3 (4.5-11.0)
[2025-04-04 03:12] LABS: ALANINE AMINOTRANSFERASE 48 U/L (12-78); ALBUMIN 2.7 G/DL (3.4-5.0); ALBUMIN/GLOBULIN RATIO 0.8 (1.1-1.5); ALKALINE PHOSPHATASE 92 IU/L (46-116); ANION GAP 6 (8-16); ASPARTATE AMINO TRANSFERASE 40 U/L (10-37); BILIRUBIN,TOTAL 0.4 MG/DL (0.1-1.0); BLOOD UREA NITROGEN 10 MG/DL (7-18); CALCIUM 8.5 MG/DL (8.5-10.1); CHLORIDE 105 MMOL/L (99-107); CHOLESTEROL 133 MG/DL (0-200); CREATININE 0.83 MG/DL (0.60-1.10); GLUCOSE 196 MG/DL (70-104); HDL CHOLESTEROL 33 MG/DL (35-60); MAGNESIUM 1.7 MG/DL (1.5-2.4); POTASSIUM 3.6 MMOL/L (3.5-5.1); SODIUM 139 MMOL/L (135-145); TOTAL CARBON DIOXIDE 28.5 MMOL/L (24-32); TOTAL PROTEIN 6.2 G/DL (6.4-8.2); TRIGLYCERIDES 293 MG/DL (20-135); VANCOMYCIN,TROUGH 12.4 ug/mL (10.0-20.0); eCRCL 91 ML/MIN; eGFR > 90 ML/MIN
[2025-04-04 03:23] LABS: LDL CHOLESTEROL 69 MG/DL (50-100)
[2025-04-04 06:39] VITALS: BP 130/81; PULSE 90; RESP 18; TEMP 97.7; O2SAT 97
[2025-04-04 08:00] VITALS: RESP 16
--- NOTE | 2025-04-04 08:33 | ELECTROCARDIOGRAPH REPORT ---
[facility] Test Date: 2025-04-04 Test Time: 05:57:00 Pat Name: ARCELIA RAO Department: Room: [place] [address] B Gender: M Bun Panner: : 1975 Requested By: BENIGNO GARZA Order Number: [id number] Reading MD: Dr. Ricardo Sawyer Measurements Intervals [place] Rate: 88 P: 53 [place]: 116 QRS: 25 QRSD: 92 T: -54 QT: 364 QTc: 440 Interpretive Statements Normal sinus rhythm Nonspecific T wave abnormality Electronically Signed On 04-04-2025 10:56:[address] Ricardo Sawyer Please click the below link to view image of tracing.
--- NOTE | 2025-04-04 10:44 | RADIOLOGY REPORT ---
CLINICAL INDICATION: Osteomylitis left foot COMPARISON: MRI of the left foot performed on 11/13/2024 TECHNIQUE: Multiplanar, multisequence MRI of the left foot was performed without and with intravenous contrast. Contrast: 15 cc Clariscan contrast given. INTERPRETATION: Bones: No evidence of acute fracture. There is T1 hypointensity in the dorsal aspect of the navicula r bone. There is an osteochondral lesion in the medial cuneiform measuring 8 mm associated with bone marrow edema. There is mild marrow edema in the navicular bone and intermediate cuneiform as well as the base of the 2nd metatarsal, overall decreased since the prior MRI from November 2024. Resolution o f the previously seen edema in the hallux sesamoid. Mild enhancement in the medial cuneiform, interme diate cuneiform, navicular and base of the 2nd metatarsal bone. Soft tissues: Mild dorsal soft tissue swelling adjacent to the talonavicular joint. There is also mil d enhancement in the region of swelling. No fluid collection. No mass. No high-grade tendon or liga ment injury. IMPRESSION: 1. Significant decrease in bone marrow edema in the cuneiforms, navicular and 2nd metatarsal bones wi th decreased enhancement compared to the prior study. Findings may reflect sequelae of chronic osteo myelitis or alternatively stress reaction. 8 mm osteochondral lesion of the medial cuneiform is new s ute the prior study. 2. Mild dorsal soft tissue edema adjacent to the talonavicular joint. No significant swelling or enha ncement to suggest cellulitis. No fluid collection or mass.
[2025-04-04 11:00] VITALS: BP 122/83; PULSE 87; RESP 19; TEMP 97.3; O2SAT 96
[2025-04-04] MEDS: VANCOmycin 1250MG/NS 250ml Bag 250 ML IV SCH (13:45)
[2025-04-04] MEDS: GADOTERATE MEGLUMINE 7.5 MMOL/15 ML VIAL IV ONE (13:47)
--- NOTE | 2025-04-04 14:20 | PROGRESS NOTE- Residence ---
Progress Note - Resident Providers to CC Resident Creating Document: ARZATEVIVIANA MEDINA RES ~ Antibiotic Timeout Antibiotic Ordered?: Yes Subjective Patient was seen and examined at bedside. Touched base with Dr. Stearns with the MRI and ultrasound results who mentioned that he will perform the surgery tomorrow. NPO after midnight. Type and screen and informed consent for the procedure ordered. Objective Vital Signs Date Time Temp Pulse Resp B/P (MAP) Pulse Ox O2 Delivery O2 Flow Rate FiO2 04/04/25 09:45 16 04/04/25 09:28 90 04/04/25 08:00 Room Air 0.0 04/04/25 06:39 97.7 130/81 (97) 97 Result Diagram: 04/04/25 0230 04/04/25 0230 General: Well alert, well oriented, not confused, not agitated, not in acute distress, well cooperated during the physical. Chest: Equal air entry on both lungs, no additional sounds no rhonchi no wheezing at the moment. Cardiovascular: S1-S2 regular sinus rhythm and, regular rate, no gallops, no rubs, no murmurs Abdomen: No visible peristalsis, Bowel sounds present on auscultation, soft, nontender, no guarding, no rigidity. Presence of midline scar. Extremities: Mild edema bilaterally, redness of the plantar area of the left foot. Pain with palpation. Absence of the 5th left toe. Central Nervous System: No focal neurological deficits, no motor or sensory weakness in all 4 extremities, could move all 4 extremities Musculoskeletal: No joint swelling, deformities, inflammations, and no scoliosis and back tenderness Coagulation Studies Laboratory Tests Test 04/03/25 01:31 Prothrombin Time 10.4 SECONDS (9.0-12.0) INR International Normalized Ratio 1.0 INR Activated Partial Thromboplast Time 24 SECONDS (22-32) Coagulation Comments Assessment Assessment Patient is a 49-year-old male with a history of poorly controlled diabetes and diabetic neuropathy, presenting with left foot pain. He was previously admitted to [facility] and diagnosed with osteomyelitis, for which she completed a six weeks' course of IV antibiotics in February 2025. He also underwent 5th toe amputation in May 2024. Despite prior treatment, his current presentation suggests ongoing chronic osteomyelitis, indicating a lack of adequate response to previous therapy. I discussed the case with orthopedic surgeon; Dr. Luther, who recommended podiatry evaluation. Dr. Stearns , the endoscopy technician, was contacted and has ordered an MRI of the left foot along with arterial studies. He plan to evaluate the patient tomorrow the patient should remain NPO after midnight in anticipation of further evaluation and potential intervention. Plan Plan Osteomyelitis of the left foot: Likely chronic Continue IV vancomycin and Zosyn. Preliminary blood cultures negative Wound care consulted Dr. Stearns consulted, ordered MRI & Arterial US Keep NPO after midnight, endoscopy technician will perform surgery tomorrow. Type and screen ordered and informed consent taken. Poorly controlled DM-2 : HbA1C 11.3 Started on Lantus 40 units b.i.d. and medium dose sliding scale. Hypertension: Hyperlipidemia Continue home medications lisinopril 10 mg daily and atorvastatin 10 mg, aspirin 81 mg daily Code status: Full code. Diet: 75 carb controlled diet. NPO after midnight Pain control: [place], morphine p.r.n.. IV access: PIV. DVT prophylaxis: Heparin. Viviana Guerrero Internal Medicine Resident Date of Service: April 04, 2025 Billing Provider: BENIGNO GARZA MD Common Visit Codes: [id number] INP/OBS CARE(HIGH) VIVIANA ARZATE, RES April 04, 2025 14:20 BENIGNO GARZA MD April 04, 2025 18:28
[2025-04-04 18:00] VITALS: BP 125/77; PULSE 95; RESP 17; TEMP 98; O2SAT 94
[2025-04-04 20:00] VITALS: RESP 16; O2SAT 96
[2025-04-04 22:00] VITALS: BP 133/84; PULSE 93; RESP 18; TEMP 98.3; O2SAT 96
[2025-04-05] VITALS (23 sets, daily range): BP systolic 98–146; BP diastolic 65–90; PULSE 73–97; RESP 12–18; TEMP 96–97.1; O2SAT 96–99
[2025-04-05 06:06] LABS: BASOPHILS % (AUTO) 0.4 % (0-1); EOSINOPHILS # (AUTO) 0.1 X10'3 (0-0.9); EOSINOPHILS % (AUTO) 1.8 % (0-6); HEMATOCRIT 39.4 % (42.0-52.0); HEMOGLOBIN 13.4 g/dl (14.0-17.9); LYMPHOCYTES % (AUTO) 30.8 % (21-51); MEAN CORPUSCULAR HEMOGLOBIN 28.7 PG (27.0-31.0); MEAN CORPUSCULAR HGB CONC 34.1 g/dL (33.0-36.5); MEAN CORPUSCULAR VOLUME 84.1 FL (78-98); MEAN PLATELET VOLUME 7.6 FL (7.4-10.4); MONOCYTES # (AUTO) 0.7 X10'3 (0-0.9); MONOCYTES % (AUTO) 10.7 % (2-12); NEUTROPHILS # (AUTO) 3.6 X10'3 (1.8-7.7); NEUTROPHILS % (AUTO) 56.3 % (42-75); PLATELET COUNT 262 X10'3 (140-440); RED BLOOD COUNT 4.68 X10'6 (4.70-6.10); RED CELL DISTRIBUTION WIDTH 13.5 % (11.5-14.5); WHITE BLOOD COUNT 6.4 X10'3 (4.5-11.0)
[2025-04-05 06:29] LABS: ALANINE AMINOTRANSFERASE 45 U/L (12-78); ALBUMIN 2.8 G/DL (3.4-5.0); ALBUMIN/GLOBULIN RATIO 0.8 (1.1-1.5); ALKALINE PHOSPHATASE 98 IU/L (46-116); ANION GAP 6 (8-16); ASPARTATE AMINO TRANSFERASE 30 U/L (10-37); BILIRUBIN,TOTAL 0.3 MG/DL (0.1-1.0); BLOOD UREA NITROGEN 6 MG/DL (7-18); BUN/CREATININE RATIO 9.1 (10.0-20.0); CALCIUM 8.7 MG/DL (8.5-10.1); CHLORIDE 106 MMOL/L (99-107); CREATININE 0.66 MG/DL (0.60-1.10); GLUCOSE 214 MG/DL (70-104); MAGNESIUM 1.8 MG/DL (1.5-2.4); POTASSIUM 3.5 MMOL/L (3.5-5.1); SODIUM 141 MMOL/L (135-145); TOTAL CARBON DIOXIDE 29.3 MMOL/L (24-32); TOTAL PROTEIN 6.5 G/DL (6.4-8.2); eCRCL 114 ML/MIN; eGFR > 90 ML/MIN
[2025-04-05] MEDS ORDERED: bacitracin 15gm ointment TP ONE (06:55)
[2025-04-05] MEDS ORDERED: BUPIVAcaine 2.5mg/ml inj 50ml vial (contains preservative) ONE (06:56)
--- NOTE | 2025-04-05 07:48 | RADIOLOGY REPORT ---
CHEST RADIOGRAPH Indication: PRE-OP Technique: Single frontal view of the chest was obtained Comparison: DI CHEST,SINGLE VIEW on DOS: 11/14/24 FINDINGS: Lines and Tubes: None Lungs: No focal consolidation. Pleura: No effusion. No pneumothorax. Cardiomediastinal contours: Unremarkable Bones: No acute osseous abnormality. IMPRESSION: 1. No acute cardiopulmonary disease.
[2025-04-05] MEDS ORDERED: midazolam 1 mg/ML 2ml injection ONE (08:17)
[2025-04-05] MEDS ORDERED: fentaNYL/PF 50MCG/1 ML 2ML syringe ONE (08:17)
[2025-04-05] MEDS ORDERED: propofol inj 20 ML IV ONE (08:17)
[2025-04-05] MEDS: ringers solution, lacted 1,000 ML IV SCH (08:35)
[2025-04-05] MEDS ORDERED: hydrALAZINE 20mg/ml inj. IV PRN (08:35)
[2025-04-05] MEDS ORDERED: HYDROmorphone/PF 0.2 MG/ML SYRINGE IV PRN (08:35)
[2025-04-05] MEDS ORDERED: ondansetron/PF 4mg/2ml inj IV PRN (08:35)
[2025-04-05] MEDS ORDERED: labetalol 20mg/4ml (5mg/ml) syringe IV PRN (08:35)
[2025-04-05] MEDS ORDERED: morphine 2 MG/ML inj. syringe IV PRN (08:35)
[2025-04-05] MEDS ORDERED: sevoflurane 250ml liquid IH ONE (08:43)
[2025-04-05] MEDS ORDERED: vancomycin 1,000mg inj ONE (08:56)
[2025-04-05] MEDS ORDERED: naloxone 0.4 mg/ml inj IV PRN (09:35)
[2025-04-05] MEDS ORDERED: PCA WASTE DOCUMENTATION 1 MG ML MC SCH (09:35)
[2025-04-05] MEDS: acetaminophen 1,000mg/100ml IV 100 ML IV PRN (09:38)
[2025-04-05] MEDS: HYDROmorphone/PF 0.2 MG/ML SYRINGE IV PRN (09:39)
[2025-04-05] MEDS: morphine 4 MG/ML inj SYRINge IV PRN (09:46)
--- NOTE | 2025-04-05 09:46 | CONSULTATION REPORT ---
History of Present Illness Providers to CC ~ Reason for Admit\\Admit Dx: Pain in the left foot Refering MD: [facility] Dr. Farrell (podiatry), Dr. Villanueva (ID) History of Present Illness chronic osteomyelitis to the left foot with history of previous 5th digit amputation, multiple wounds in [place] past and previous IV ABX. Allergies: Coded Allergies: Sulfa (Sulfonamide Antibiotics) (Verified Allergy, Unknown, 11/13/24) clindamycin (Verified Allergy, Unknown, 11/13/24) crab (Unverified Allergy, Unknown, Swollen throat, 11/13/24) melon (Unverified Allergy, Unknown, Itchy throat, 11/13/24) Home Medications Home Medications Active Reported Insulin Lispro Kwikpen U-100 (Insulin Lispro) 100 Unit/Ml Insuln.pen 15 Units SQ Ozempic (Semaglutide) 0.25 Mg/0.368 Ml Pen.injctr 0.25 Mg SQ Q7D Atorvastatin Calcium 10 Mg Tablet 1 Tab PO DAILY Culturelle (Lactobacillus Rhamnosus GG) 15 Billion Cell Cap.sprink 1 Cap PO DAILY 30 Days Lantus* (Insulin Glargine) 100 Unit/1 Ml Vial 25 Units SQ BID Aspir 81 (Aspirin) 81 Mg Tablet.dr 1 Tab PO DAILY 30 Days Metformin HCl 500 Mg Tablet 1 Tab PO Q12H Lisinopril 10 Mg Tablet 1 Tab PO DAILY Past Family History Family History: FH: diabetes mellitus MOTHER, , Age: 58, Cause: Kidney failure FH: pancreatic cancer MOTHER, , Age: 58, Cause: Kidney failure FH: prostate cancer Maternal Grandfather Physical Exam Last Vital Signs Recorded: Temperature: 96.3, Source: Temporal, Heart Rate: 83, Respiratory Rate: 14, BP: 146/90, Pulse Oximetry: 98, Weight: 92.900 Extremities pain to the left foot with palpation to the midfoot, previous 5th digit amputation Results Diagram Lab Result Diagram: 04/05/25 0500 04/05/25 0500 Assessment/Plan Additional Plan patient seen prior to surgery - lengthy discussion had with the patient in regards to chronic osteomyelitis and treatment options. disucssed with the patient that we could do a biopsy to confirm MRI findings but pt denies this and "just wants it taken off", discussed treatment option for further IV abx and outpatient follow-up and patient declines. Discussed the biomechanical issues with a choparts amputation and wishes to proceed with choparts amputation. discussed prosthetics and custom bracing after amputation. discussed possability for excision of affected bones, abx spacer and further reconstruction but patietn declines this option. YASMANY PULIDO DPM April 05, 2025 09:46
[2025-04-05] MEDS ORDERED: fentaNYL/PF 50MCG/1 ML 2ML syringe IV PRN (10:10)
[2025-04-05] MEDS: fentaNYL/PF 50MCG/1 ML 2ML syringe IV PRN (10:33)
[2025-04-05] MEDS: HYDROcodone/acetaminophen 5mg/325mg tablet PO PRN (11:04)
[2025-04-05] MEDS: VANCOMYCIN LEVEL IV ONE (11:30)
--- NOTE | 2025-04-05 14:27 | OPERATIVE REPORT ---
DATE OF SURGERY: 04/05/2025 DICTATING PHYSICIAN: Manuel Stearns DPM PREOPERATIVE DIAGNOSIS: Chronic osteomyelitis of the left foot. POSTOPERATIVE DIAGNOSIS: Chronic osteomyelitis of the left foot. PROCEDURE PERFORMED: Left foot Chopart's amputation with tendo-Achilles lengthening. POSITION: Supine. ANESTHESIA: General local block. HEMOSTASIS: Calf tourniquet set at 250 mmHg. ESTIMATED BLOOD LOSS: 10 mL. COMPLICATIONS: None. FINDINGS: Soft bone to the cuneiforms and navicular along with the fifth metatarsal and the second metatarsal. Small area of purulence tracking from the lateral aspect of the foot along to the dorsal aspect of the foot. SPECIMENS: Left forefoot. DESCRIPTION OF PROCEDURE: The patient was seen in the holding room. Planned procedures were explained to the patient in detail along with all the risks and benefits. The patient consented to the planned procedure and the correct limb was signed. Discussed with the patient treatment of chronic osteomyelitis including continued IV antibiotics and monitoring. Discussed with the patient that the outcomes of having a Chopart's amputation, the possibility of still needing a more proximal amputation later on in life. The patient agreed to these and at this point in time would prefer [id number] amputation over top of nonoperative treatment to the foot. The patient decides that a Chopart's amputation would be appropriate and was given all of the information accordingly. The patient has a history of multiple wounds to the foot and courses of antibiotics and MRIs still consistent with osteomyelitis of the midfoot. The patient was then taken to the operating room and placed on the operating table in the supine position. The correct limb was scrubbed and draped in normal sterile fashion. The tourniquet was inflated. Attention was then directed to the left foot. A transverse fishmouth incision was made over the top of the midfoot. Incision was taken down to the level of the TM joints and the CC joints and the joints were disarticulated at that level. The entire forefoot was then removed in its entirety. The site was then copiously irrigated. All major vessels were then ligated. All nonviable tissue was sharply excised from the amputation site. Upon inspection of the bones, the cuneiforms were soft and we were able to push a forcep into the bone with minimal force. The joint surfaces remaining to the talus and the calcaneus appeared viable. No soft bone at this area. No signs of osteomyelitis at that point. The site was then copiously irrigated once again. The deep tissues were closed with Vicryl. Skin was closed with #3-0 nylon and jeremiah. At this point in time, attention was then directed to the Achilles where a percutaneous tendo-Achilles lengthening was performed with accordion-type lengthening with 3 small stab incisions. The sites were then irrigated and closed with jeremiah. A Betadine wet-to-dry dressing was applied. The patient tolerated the anesthesia and procedure well and was transferred from the operating room to the recovery room in stable condition. Manuel Stearns DPM TID: [id number] RECEIPT: [id number] YOSEPH/NATALIE/DONY
--- NOTE | 2025-04-05 14:53 | PROGRESS NOTE- Residence ---
Progress Note - Resident Providers to CC Resident Creating Document: VIVIANA ARZATE RES ~ Antibiotic Timeout Antibiotic Ordered?: Yes Subjective Patient was seen and examined at bedside. He underwent choparts amputation with Achilles tendon lengthening. Procedure was uncomplicated patient is hemodynamically stable after the surgery. He reports that the leg is very tender . Surgical site is covered with a dressing. Pain control with [place], morphine, Dilaudid as needed. Objective Vital Signs Date Time Temp Pulse Resp B/P (MAP) Pulse Ox O2 Delivery O2 Flow Rate FiO2 04/05/25 14:39 16 04/05/25 12:03 96.0 97 128/88 (101) 98 Nasal Cannula 2.0 Result Diagram: 04/05/25 0500 04/05/25 0500 General: Well alert, well oriented, not confused, not agitated, not in acute distress, well cooperated during the physical. Chest: Equal air entry on both lungs, no additional sounds no rhonchi no wheezing at the moment. Cardiovascular: S1-S2 regular sinus rhythm and, regular rate, no gallops, no rubs, no murmurs Abdomen: No visible peristalsis, Bowel sounds present on auscultation, soft, nontender, no guarding, no rigidity. Presence of midline scar. Extremities: Mild edema bilaterally, redness of the plantar area of the left foot. Pain with palpation. Absence of the 5th left toe. Central Nervous System: No focal neurological deficits, no motor or sensory weakness in all 4 extremities, could move all 4 extremities Musculoskeletal: No joint swelling, deformities, inflammations, and no scoliosis and back tenderness Coagulation Studies Laboratory Tests Test 04/03/25 01:31 Prothrombin Time 10.4 SECONDS (9.0-12.0) INR International Normalized Ratio 1.0 INR Activated Partial Thromboplast Time 24 SECONDS (22-32) Coagulation Comments Assessment Assessment Patient is a 49-year-old male with a history of poorly controlled diabetes and diabetic neuropathy, presenting with left foot pain. He was previously admitted to [facility] and diagnosed with osteomyelitis, for which she completed a six weeks' course of IV antibiotics in February 2025. He also underwent 5th toe amputation in May 2024. Despite prior treatment, his current presentation suggests ongoing chronic osteomyelitis, indicating a lack of adequate response to previous therapy. I discussed the case with orthopedic surgeon; Dr. Luther, who recommended podiatry evaluation. Dr. Stearns , the patients transporter, was contacted and has ordered an MRI of the left foot along with arterial studies. He plan to evaluate the patient tomorrow the patient should remain NPO after midnight in anticipation of further evaluation and potential intervention. Plan Plan Chronic Osteomyelitis of the left foot Continue IV vancomycin and Zosyn. Preliminary blood cultures negative Wound care consulted Dr. Stearns consulted, ordered MRI & Arterial US Keep NPO after midnight, patients transporter will perform surgery tomorrow. Type and screen ordered and informed consent taken. 04/05/2025: MRI shows 1. Significant decrease in bone marrow edema in the cuneiforms, navicular and 2nd metatarsal bones with decreased enhancement compared to the prior study. Findings may reflect sequelae of chronic osteomyelitis or alternatively stress reaction. 8 mm osteochondral lesion of the medial cuneiform is new since the prior study. 2. Mild dorsal soft tissue edema adjacent to the talonavicular joint. No significant swelling or enhancement to suggest cellulitis. No fluid collection or mass. Patient underwent charcots amputation today. Postop course was uncomplicated. Poorly controlled DM-2 : HbA1C 11.3 Started on Lantus 40 units b.i.d. and medium dose sliding scale. 04/05/2025: Increased Lantus to 50 units b.i.d. for better control of sugars Hypertension: Hyperlipidemia Continue home medications lisinopril 10 mg daily and atorvastatin 10 mg, aspirin 81 mg daily Code status: Full code. Diet: 75 carb controlled diet. Pain control: [place], morphine p.r.n.. IV access: PIV. DVT prophylaxis: Heparin. Viviana Guerrero MD Internal Medicine Resident Date of Service: April 05, 2025 Billing Provider: BENIGNO GARZA MD Common Visit Codes: [id number] INP/OBS CARE(HIGH) VIVIANA ARZATE, RES April 05, 2025 14:53 BENIGNO GARZA MD April 05, 2025 18:53
[2025-04-05] MEDS: insulin glargine (Lantus) pen - multi-dose SQ SCH (21:17)
[2025-04-06 06:00] VITALS: BP 129/77; PULSE 86; RESP 14; TEMP 97.8; O2SAT 97
[2025-04-06 06:06] LABS: BASOPHILS % (AUTO) 0.4 % (0-1); EOSINOPHILS # (AUTO) 0.1 X10'3 (0-0.9); EOSINOPHILS % (AUTO) 1.3 % (0-6); HEMATOCRIT 37.1 % (42.0-52.0); HEMOGLOBIN 12.7 g/dl (14.0-17.9); LYMPHOCYTES # (AUTO) 2.1 X10'3 (1.1-4.8); LYMPHOCYTES % (AUTO) 25.7 % (21-51); MEAN CORPUSCULAR HEMOGLOBIN 28.8 PG (27.0-31.0); MEAN CORPUSCULAR HGB CONC 34.2 g/dL (33.0-36.5); MEAN CORPUSCULAR VOLUME 84.3 FL (78-98); MEAN PLATELET VOLUME 7.6 FL (7.4-10.4); MONOCYTES # (AUTO) 0.8 X10'3 (0-0.9); MONOCYTES % (AUTO) 9.8 % (2-12); NEUTROPHILS % (AUTO) 62.8 % (42-75); PLATELET COUNT 258 X10'3 (140-440); RED CELL DISTRIBUTION WIDTH 13.7 % (11.5-14.5)
[2025-04-06 06:39] LABS: ALANINE AMINOTRANSFERASE 47 U/L (12-78); ALBUMIN 2.6 G/DL (3.4-5.0); ALBUMIN/GLOBULIN RATIO 0.7 (1.1-1.5); ALKALINE PHOSPHATASE 96 IU/L (46-116); ANION GAP 5 (8-16); ASPARTATE AMINO TRANSFERASE 29 U/L (10-37); BILIRUBIN,TOTAL 0.3 MG/DL (0.1-1.0); BLOOD UREA NITROGEN 6 MG/DL (7-18); BUN/CREATININE RATIO 8.5 (10.0-20.0); CALCIUM 8.7 MG/DL (8.5-10.1); CHLORIDE 106 MMOL/L (99-107); CREATININE 0.71 MG/DL (0.60-1.10); GLUCOSE 211 MG/DL (70-104); MAGNESIUM 1.7 MG/DL (1.5-2.4); POTASSIUM 3.7 MMOL/L (3.5-5.1); SODIUM 141 MMOL/L (135-145); TOTAL CARBON DIOXIDE 30.3 MMOL/L (24-32); TOTAL PROTEIN 6.3 G/DL (6.4-8.2); eCRCL 106 ML/MIN; eGFR > 90 ML/MIN
[2025-04-06] MEDS ORDERED: LANTUS SQ (08:20)
[2025-04-06 10:00] VITALS: BP 132/81; PULSE 90; RESP 18; TEMP 98.4; O2SAT 97
--- NOTE | 2025-04-06 11:45 | PROGRESS NOTE- Residence ---
Progress Note - Resident Providers to CC Resident Creating Document: VIVIANA ARZATE RES ~ Antibiotic Timeout Antibiotic Ordered?: Yes Subjective Patient was seen and examined at bedside. He reports that his leg is still very sore and painful and he is taking both IV and oral narcotics for pain control. May consider discharge tomorrow if patient is able to tolerate his pain just with p.o. meds. Had a conversation with physical therapy team about prosthesis education. Patient wants to discuss the options about prosthesis which will be covered by the insurance with the nurse outreach case manager. Patient needs 10 to 14 days of antibiotics outpatient at discharge (linezolid and Levaquin) Objective Vital Signs Date Time Temp Pulse Resp B/P (MAP) Pulse Ox O2 Delivery O2 Flow Rate FiO2 04/06/25 10:41 16 04/06/25 07:40 86 04/06/25 06:00 97.8 129/77 (94) 97 04/06/25 05:08 Room Air 04/05/25 22:00 2.0 Result Diagram: 04/06/25 0515 04/06/25 0515 General: Well alert, well oriented, not confused, not agitated, not in acute distress, well cooperated during the physical. Chest: Equal air entry on both lungs, no additional sounds no rhonchi no wheezing at the moment. Cardiovascular: S1-S2 regular sinus rhythm and, regular rate, no gallops, no rubs, no murmurs Abdomen: No visible peristalsis, Bowel sounds present on auscultation, soft, nontender, no guarding, no rigidity. Presence of midline scar. Extremities: Mild edema bilaterally, redness of the plantar area of the left foot. Pain with palpation. Absence of the 5th left toe. Central Nervous System: No focal neurological deficits, no motor or sensory weakness in all 4 extremities, could move all 4 extremities Musculoskeletal: No joint swelling, deformities, inflammations, and no scoliosis and back tenderness Coagulation Studies Laboratory Tests Test 04/03/25 01:31 Prothrombin Time 10.4 SECONDS (9.0-12.0) INR International Normalized Ratio 1.0 INR Activated Partial Thromboplast Time 24 SECONDS (22-32) Coagulation Comments Assessment Assessment Patient is a 49-year-old male with a history of poorly controlled diabetes and diabetic neuropathy, presenting with left foot pain. He was previously admitted to [facility] and diagnosed with osteomyelitis, for which she completed a six weeks' course of IV antibiotics in February 2025. He also underwent 5th toe amputation in May 2024. Despite prior treatment, his current presentation suggests ongoing chronic osteomyelitis, indicating a lack of adequate response to previous therapy. I discussed the case with orthopedic surgeon; Dr. Luther, who recommended podiatry evaluation. Dr. Stearns , the kiln labourer, was contacted and has ordered an MRI of the left foot along with arterial studies. He plan to evaluate the patient tomorrow the patient should remain NPO after midnight in anticipation of further evaluation and potential intervention. Plan Plan Chronic Osteomyelitis of the left foot Continue IV vancomycin and Zosyn. Preliminary blood cultures negative Wound care consulted Dr. Stearns consulted, ordered MRI & Arterial US Keep NPO after midnight, kiln labourer will perform surgery tomorrow. Type and screen ordered and informed consent taken. 04/05/2025: MRI shows 1. Significant decrease in bone marrow edema in the cuneiforms, navicular and 2nd metatarsal bones with decreased enhancement compared to the prior study. Findings may reflect sequelae of chronic osteomyelitis or alternatively stress reaction. 8 mm osteochondral lesion of the medial cuneiform is new since the prior study. 2. Mild dorsal soft tissue edema adjacent to the talonavicular joint. No significant swelling or enhancement to suggest cellulitis. No fluid collection or mass. Patient underwent charcots amputation today. Postop course was uncomplicated. 04/06/2025: Pain management with IV morphine, Dilaudid and p.o. [place], gabapentin. Poorly controlled DM-2 : HbA1C 11.3 Started on Lantus 40 units b.i.d. and medium dose sliding scale. 04/05/2025: Increased Lantus to 50 units b.i.d. for better control of sugars 04/06/2025: Blood sugars well controlled with current dose Hypertension: Hyperlipidemia Continue home medications lisinopril 10 mg daily and atorvastatin 10 mg, aspirin 81 mg daily Code status: Full code. Diet: 75 carb controlled diet. Pain control: [place], morphine p.r.n.. IV access: PIV. DVT prophylaxis: Heparin. Disposition: Anticipated discharge tomorrow with 10-14 days of antibiotics if pain is adequately controlled with oral medications Viviana Guerrero MD Internal Medicine Resident Date of Service: April 06, 2025 Billing Provider: ANKIT WOODY MD, DEEPIKA BANDI, RES April 06, 2025 11:45
[2025-04-06] MEDS ORDERED: LEVO-65 PO (14:22)
[2025-04-06] MEDS ORDERED: LINE600T14 PO (14:22)
[2025-04-06 18:30] VITALS: BP 144/81; PULSE 94; RESP 17; TEMP 97; O2SAT 95
[2025-04-06 20:00] VITALS: RESP 18; O2SAT 98
[2025-04-06 22:00] VITALS: BP 126/79; PULSE 94; RESP 16; TEMP 98.6; O2SAT 96
[2025-04-07 04:57] LABS: BASOPHILS % (AUTO) 0.3 % (0-1); EOSINOPHILS # (AUTO) 0.1 X10'3 (0-0.9); EOSINOPHILS % (AUTO) 1.3 % (0-6); HEMATOCRIT 37.7 % (42.0-52.0); HEMOGLOBIN 12.8 g/dl (14.0-17.9); LYMPHOCYTES # (AUTO) 2.4 X10'3 (1.1-4.8); LYMPHOCYTES % (AUTO) 25.9 % (21-51); MEAN CORPUSCULAR HEMOGLOBIN 28.4 PG (27.0-31.0); MEAN CORPUSCULAR HGB CONC 33.9 g/dL (33.0-36.5); MEAN PLATELET VOLUME 7.1 FL (7.4-10.4); MONOCYTES # (AUTO) 1.1 X10'3 (0-0.9); MONOCYTES % (AUTO) 11.3 % (2-12); NEUTROPHILS # (AUTO) 5.7 X10'3 (1.8-7.7); NEUTROPHILS % (AUTO) 61.2 % (42-75); PLATELET COUNT 273 X10'3 (140-440); RED BLOOD COUNT 4.48 X10'6 (4.70-6.10); RED CELL DISTRIBUTION WIDTH 13.5 % (11.5-14.5); WHITE BLOOD COUNT 9.4 X10'3 (4.5-11.0)
[2025-04-07 05:17] LABS: ALANINE AMINOTRANSFERASE 40 U/L (12-78); ALBUMIN 2.7 G/DL (3.4-5.0); ALBUMIN/GLOBULIN RATIO 0.7 (1.1-1.5); ALKALINE PHOSPHATASE 87 IU/L (46-116); ANION GAP 7 (8-16); ASPARTATE AMINO TRANSFERASE 21 U/L (10-37); BILIRUBIN,TOTAL 0.5 MG/DL (0.1-1.0); BLOOD UREA NITROGEN 6 MG/DL (7-18); BUN/CREATININE RATIO 9.2 (10.0-20.0); CALCIUM 9.1 MG/DL (8.5-10.1); CHLORIDE 105 MMOL/L (99-107); CREATININE 0.65 MG/DL (0.60-1.10); GLUCOSE 98 MG/DL (70-104); MAGNESIUM 1.8 MG/DL (1.5-2.4); POTASSIUM 3.3 MMOL/L (3.5-5.1); SODIUM 141 MMOL/L (135-145); TOTAL CARBON DIOXIDE 29.5 MMOL/L (24-32); TOTAL PROTEIN 6.4 G/DL (6.4-8.2); eCRCL 116 ML/MIN; eGFR > 90 ML/MIN
[2025-04-07 06:00] VITALS: BP 124/72; PULSE 58; RESP 19; TEMP 98; O2SAT 96
[2025-04-07 08:30] VITALS: RESP 18; O2SAT 98
[2025-04-07] MEDS: morphine 4 MG/ML inj SYRINge IV PRN (08:46)
[2025-04-07] MEDS ORDERED: magnesium sulf-water 4G/100mL 100 ML IV PRN (09:00)
[2025-04-07] MEDS ORDERED: potassium Cl 20 mEq SR tablet PO PRN (09:00)
[2025-04-07] MEDS ORDERED: magnesium Cl slow-release 64mg tablet PO PRN (09:00)
[2025-04-07] MEDS ORDERED: magnesium sulf-water 2g/50mL 50 ML IV PRN (09:00)
[2025-04-07] MEDS: insulin glargine (Lantus) pen - multi-dose SQ ONE (09:47)
[2025-04-07] MEDS: potassium Cl 20 mEq SR tablet PO PRN (09:50)
[2025-04-07] MEDS: insulin glargine (Lantus) VIAL- multi-dose SQ ONE (09:55)
[2025-04-07 10:00] VITALS: BP 139/90; PULSE 88; RESP 19; TEMP 98.3; O2SAT 96
[2025-04-07 13:34] VITALS: RESP 18
[2025-04-07] MEDS ORDERED: IBUP-1985 PO (16:55)
--- NOTE | 2025-04-07 17:27 | DISCHARGE SUMMARY-Residence ---
Discharge Summary Providers to CC Resident Creating Document: VIVIANA ARZATE, RES ~ Discharge Summary Admission Diagnosis: osteomyelitis Hospital Course DATE OF ADMISSION: 04/03/2025 DATE OF DISCHARGE: 04/07/2025 Discharge Diagnosis\Comment: Chronic Osteomyelitis of the left foot s/p Charcot's amputation Poorly controlled DM-2 Hypertension: Hyperlipidemia Operations\Procedures: Charcot amputation of left foot Consultants: Dr. Stearns Complications: None Condition on DC: Stable New Medications: Ibuprofen (Ibuprofen) 600 Mg Tablet 1 TAB PO Q8H for pain for 30 Days, #90 TAB 0 Refills with food Levofloxacin (Levofloxacin) 500 Mg Tablet 1 TAB PO BID for 14 Days, #28 TAB Linezolid (Linezolid) 600 Mg Tablet 1 TAB PO Q12H for 14 Days, #28 TAB 0 Refills Changed Medications: Insulin Glargine,Hum.rec.anlog* (Lantus*) 100 Unit/1 Ml Vial 50 UNITS SQ BID for 30 Days, #1 VIAL (Changed from: 25 UNITS) Continued Medications: Aspirin (Aspir 81) 81 Mg Tablet.dr 1 TAB PO DAILY for 30 Days, #30 TAB Atorvastatin Calcium (Atorvastatin Calcium) 10 Mg Tablet 1 TAB PO DAILY Insulin Lispro (Insulin Lispro Kwikpen U-100) 100 Unit/Ml Insuln.pen 15 UNITS SQ Lactobacillus Rhamnosus GG (Culturelle) 15 Billion Cell Cap.sprink 1 CAP PO DAILY for 30 Days, #30 CAP 0 Refills Lisinopril (Lisinopril) 10 Mg Tablet 1 TAB PO DAILY Metformin HCl (Metformin HCl) 500 Mg Tablet 1 TAB PO Q12H Semaglutide (Ozempic) 0.25 Mg/0.368 Ml Pen.injctr 0.25 MG SQ Q7D Discharge Summary: History of present illness: Patient is a 49-year-old male with a history of poorly controlled diabetes and diabetic neuropathy, presenting with left foot pain. He was previously admitted to [facility] and diagnosed with osteomyelitis, for which she completed a six weeks' course of IV antibiotics in February 2025. He also underwent 5th toe amputation in May 2024. Despite prior treatment, his current presentation suggests ongoing chronic osteomyelitis, indicating a lack of adequate response to previous therapy. I discussed the case with orthopedic surgeon; Dr. Luther, who recommended podiatry evaluation. Dr. Stearns , the professional volleyball player, was contacted and has ordered an MRI of the left foot along with arterial studies. Hospital course: Patient was treated with IV vancomycin and Zosyn. Preliminary blood cultures negative. Wound care consulted. Dr. Stearns consulted, ordered MRI & Arterial US. MRI shows 1. Significant decrease in bone marrow edema in the cuneiforms, navicular and 2nd metatarsal bones with decreased enhancement compared to the prior study. Findings may reflect sequelae of chronic osteomyelitis or alternatively stress reaction. 8 mm osteochondral lesion of the medial cuneiform is new since the prior study. Mild dorsal soft tissue edema adjacent to the talonavicular joint. No significant swelling or enhancement to suggest cellulitis. No fluid collection or mass. Patient underwent charcots amputation today. Postop course was uncomplicated. Pain management was addressed with IV morphine, Dilaudid and p.o. Crawford, gabapentin. Poorly controlled DM-2 : HbA1C 11.3. Started on Lantus 40 units b.i.d. and medium dose sliding scale. increased Lantus to 50 units b.i.d. for better control of sugars. Continue home medications lisinopril 10 mg daily and atorvastatin 10 mg, aspirin 81 mg daily. Vital Signs Date Time Temp Pulse Resp B/P (MAP) Pulse Ox O2 Delivery O2 Flow Rate FiO2 04/07/25 13:34 18 04/07/25 10:00 98.3 88 139/90 (106) 96 Room Air 04/06/25 20:00 0.0 Laboratory Tests Test 04/05/25 21:12 04/06/25 05:15 04/06/25 07:19 04/06/25 12:20 Glucometer 216 mg/dl 194 mg/dl 201 mg/dl White Blood Count 8.0 X10'3 Red Blood Count 4.40 X10'6 Hemoglobin 12.7 g/dl Hematocrit 37.1 % Mean Corpuscular Volume 84.3 FL Mean Corpuscular Hemoglobin 28.8 PG Mean Corpuscular Hemoglobin Concent 34.2 g/dL Red Cell Distribution Width 13.7 % Platelet Count 258 X10'3 Mean Platelet Volume 7.6 FL Neutrophils (%) (Auto) 62.8 % Lymphocytes (%) (Auto) 25.7 % Monocytes (%) (Auto) 9.8 % Eosinophils (%) (Auto) 1.3 % Basophils (%) (Auto) 0.4 % Neutrophils # (Auto) 5.0 X10'3 Lymphocytes # (Auto) 2.1 X10'3 Monocytes # (Auto) 0.8 X10'3 Eosinophils # (Auto) 0.1 X10'3 Basophils # (Auto) 0.0 X10'3 CBC Comment Sodium Level 141 MMOL/L Potassium Level 3.7 MMOL/L Chloride Level 106 MMOL/L Carbon Dioxide Level 30.3 MMOL/L Anion Gap 5 Blood Urea Nitrogen 6 MG/DL Creatinine 0.71 MG/DL Estimated GFR/1.73 m2 > 90 ML/MIN BUN/Creatinine Ratio 8.5 Glucose Level 211 MG/DL Calcium Level 8.7 MG/DL Magnesium Level 1.7 MG/DL Total Bilirubin 0.3 MG/DL Aspartate Amino Transf (AST/SGOT) 29 U/L Alanine Aminotransferase (ALT/SGPT) 47 U/L Alkaline Phosphatase 96 IU/L Total Protein 6.3 G/DL Albumin 2.6 G/DL Globulin 3.7 G/DL Albumin/Globulin Ratio 0.7 Chemistry Comments Test 04/06/25 17:10 04/06/25 20:58 04/07/25 04:41 04/07/25 07:08 Glucometer 184 mg/dl 172 mg/dl 109 mg/dl White Blood Count 9.4 X10'3 Red Blood Count 4.48 X10'6 Hemoglobin 12.8 g/dl Hematocrit 37.7 % Mean Corpuscular Volume 84.0 FL Mean Corpuscular Hemoglobin 28.4 PG Mean Corpuscular Hemoglobin Concent 33.9 g/dL Red Cell Distribution Width 13.5 % Platelet Count 273 X10'3 Mean Platelet Volume 7.1 FL Neutrophils (%) (Auto) 61.2 % Lymphocytes (%) (Auto) 25.9 % Monocytes (%) (Auto) 11.3 % Eosinophils (%) (Auto) 1.3 % Basophils (%) (Auto) 0.3 % Neutrophils # (Auto) 5.7 X10'3 Lymphocytes # (Auto) 2.4 X10'3 Monocytes # (Auto) 1.1 X10'3 Eosinophils # (Auto) 0.1 X10'3 Basophils # (Auto) 0.0 X10'3 CBC Comment Sodium Level 141 MMOL/L Potassium Level 3.3 MMOL/L Chloride Level 105 MMOL/L Carbon Dioxide Level 29.5 MMOL/L Anion Gap 7 Blood Urea Nitrogen 6 MG/DL Creatinine 0.65 MG/DL Estimated GFR/1.73 m2 > 90 ML/MIN BUN/Creatinine Ratio 9.2 Glucose Level 98 MG/DL Calcium Level 9.1 MG/DL Magnesium Level 1.8 MG/DL Total Bilirubin 0.5 MG/DL Aspartate Amino Transf (AST/SGOT) 21 U/L Alanine Aminotransferase (ALT/SGPT) 40 U/L Alkaline Phosphatase 87 IU/L Total Protein 6.4 G/DL Albumin 2.7 G/DL Globulin 3.7 G/DL Albumin/Globulin Ratio 0.7 Chemistry Comments Test 04/07/25 12:57 Glucometer 150 mg/dl Physical examination at discharge: General: Well alert, well oriented, not confused, not agitated, not in acute distress, well cooperated during the physical. Chest: Equal air entry on both lungs, no additional sounds no rhonchi no wheezing at the moment. Cardiovascular: S1-S2 regular sinus rhythm and, regular rate, no gallops, no rubs, no murmurs Abdomen: No visible peristalsis, Bowel sounds present on auscultation, soft, nontender, no guarding, no rigidity. Presence of midline scar. Extremities: Left foot covered with dressing. Central Nervous System: No focal neurological deficits, no motor or sensory weakness in all 4 extremities, could move all 4 extremities Musculoskeletal: No joint swelling, deformities, inflammations, and no scoliosis and back tenderness Discharge instructions: Follow up with Dr. Stearns office and your PCP, ID specialist Dr. Villanueva in a week. We have increased the dose of your Lantus for better sugar control. You need to work with your PCP about better sugar control. We have provided the details and education on how to find a right prosthetic device after amputation. Return to the ED if you have any signs of discharge from the amputations diet or fever or pain. *Problems/Diagnosis: (1) Osteomyelitis Status: Acute (2) Diabetes mellitus treated with insulin Status: Acute (3) Obesity (BMI 30.0-34.9) Total Time Spent on D/C: > 30 Minutes Date of Service: April 07, 2025 Billing Provider: ANKIT WOODY MD, DEEPIKA BANDI, RES April 07, 2025 17:26
== END 2025-04-07 14:35 | disposition home or self-care (01) | DRG 305 ==
LOC: ER 16:13 → ED HOLD 04-03 01:05 → SUR 3N 04-03 02:50
PROVIDERS: ADMIT Internal Medicine; ATTEND Internal Medicine
PROC: BQ2S1ZZ Computerized Tomography (CT Scan) of Left Lower Extremity using Low Osmolar Contrast (ICD-10-PCS; 2025-04-02)
PROC: 0L8P0ZZ Division of Left Lower Leg Tendon, Open Approach (ICD-10-PCS; 2025-04-05)
PROC: 0Y6N0Z0 Detachment at Left Foot, Complete, Open Approach (ICD-10-PCS; principal; 2025-04-05 08:17)
DX: E11.69 Type 2 diabetes mellitus with other specified complication (principal); M86.8X7 Other osteomyelitis, ankle and foot; L03.116 Cellulitis of left lower limb; E66.9 Obesity, unspecified; E11.42 Type 2 diabetes mellitus with diabetic polyneuropathy; E11.65 Type 2 diabetes mellitus with hyperglycemia; E78.00 Pure hypercholesterolemia, unspecified; I10 Essential (primary) hypertension; Z88.1 Allergy status to other antibiotic agents; Z91.013 Allergy to seafood; Z88.2 Allergy status to sulfonamides; Z91.018 Allergy to other foods; Z79.82 Long term (current) use of aspirin; Z79.4 Long term (current) use of insulin; Z79.899 Other long term (current) drug therapy; Z91.148 Patient's other noncompliance with medication regimen for other reason; Z68.34 Body mass index [BMI] 34.0-34.9, adult
CPT/HCPCS: 36415; 71045; 73701; 73719; 80053; 80061; 80202; 82948; 83036; 83605; 83735; 83880; 84145; 84484; 85025; 85610; 85651; 85730; 86140; 86885; 86900; 86901; 87040; 87081; 93005; 93926; 96365; 96366; 96367; 96375; 97116; 97161; 97530; 99291; A4615; A4618; A6253; A6446; A6449; A7000; G0378; J0131; J0690; J1171; J1644; J1815; J2250; J2270; J2543; J2704; J3010; J3370; J3372; J3490; J7030; J7120; Q9967

== ENCOUNTER 2025-04-25 20:13 | Emergency (ER) | payer MEDICAID ==
[~2025-04-25] VITALS: Ht 165.1 cm; Wt 85.0 kg
[~2025-04-25 20:13] MED LIST changes: -HYDR-3972 PO; +IBUP-1985 PO; -INSU100C4 SQ; +INSU100I61 SQ; +LINE600T14 PO; +SEMA0.258 SQ
[2025-04-25 20:38] VITALS: BP 163/93; PULSE 100; RESP 16; TEMP 98.2; O2SAT 98
--- NOTE | 2025-04-25 21:20 | Physician Documentation ---
History of Present Illness Chief Complaint: Wound Re-Check Stated Complaint: INFECTION Time Seen by MD: 21:04 Primary Medical Doctor: Dr. Garcia in [facility]. Dr. Farrell (podiatry), Dr. Villanueva (ID) Source: patient, RN/ HPI Patient is seen today with complaints of pain of his left heel where there are still jeremiah in place from his midfoot amputation surgery performed about three weeks ago. Patient states he is having some phantom pain and states they are still a few jeremiah in place from the surgery three weeks ago. Patient has no other concern or complaint at this time. He denies any fevers or chills or nausea, vomiting, diarrhea or chest pain or shortness of breath or abdominal pain. Tetanus within 5 years?: Yes Medication Reconciliation Allergies: Coded Allergies: Sulfa (Sulfonamide Antibiotics) (Verified Allergy, Unknown, 11/13/24) clindamycin (Verified Allergy, Unknown, 11/13/24) crab (Unverified Allergy, Unknown, Swollen throat, 11/13/24) melon (Unverified Allergy, Unknown, Itchy throat, 11/13/24) Scheduled Aspirin (Aspir 81), 1 TAB PO DAILY, (Reported) Atorvastatin Calcium (Atorvastatin Calcium), 1 TAB PO DAILY, (Reported) Ibuprofen (Ibuprofen), 1 TAB PO Q8H Insulin Glargine,Hum.rec.anlog* (Lantus*), 50 UNITS SQ BID Lactobacillus Rhamnosus GG (Culturelle), 1 CAP PO DAILY, (Reported) Linezolid (Linezolid), 1 TAB PO Q12H Lisinopril (Lisinopril), 1 TAB PO DAILY, (Reported) Metformin HCl (Metformin HCl), 1 TAB PO Q12H, (Reported) Semaglutide (Ozempic), 0.25 MG SQ Q7D, (Reported) Miscellaneous Medications Insulin Lispro (Insulin Lispro Kwikpen U-100), 15 UNITS SQ, (Reported) Discontinued Medications Levofloxacin (Levofloxacin), 1 TAB PO BID Discontinued Reason: Auto Discontinued Past Medical History Past Medical History: Peripheral Neuropathy, High Cholesterol, Hypertension, Diabetes Past Surgical History: no surgical history Patient History: FH: diabetes mellitus MOTHER, , Age: 58, Cause: Kidney failure FH: pancreatic cancer MOTHER, , Age: 58, Cause: Kidney failure FH: prostate cancer Maternal Grandfather Alcohol Use: None Drug Use: marijuana Lives with: Family Lives In: Home Occupation: employed Review of Systems Constitutional: Denies: chills, fever, weakness Eyes: Denies: pain, blurred vision ENT: Denies: ear pain, nose pain, throat pain, mouth pain Respiratory: Denies: cough, shortness of breath Cardiovascular: Denies: chest pain, palpitations Gastrointestinal: Denies: abdominal pain, nausea, vomiting Genitourinary: Denies: burning, dysuria Male Genitalia: Denies: penile discharge, testicular pain Neurological: Denies: headache, dizziness Musculoskeletal: Denies: pain, swelling Integumentary: Denies: rash, lesions Allergic/Immunologic: Denies: hives, itching Hematologic/Lymphatic: Denies: no symptoms reported Psychiatric: Denies: depression, anxiety Physical Exam Vital Signs: Temperature: 98.2, Source: Temporal, Heart Rate: 100, Respiratory Rate: 16, BP: 163/93, Pulse Oximetry: 98, Weight: 85.000 Oxygen Flow Rate: 0 Physical Exam General: Awake and Alert, no acute distress. HEENT: Conjunctiva pink, Sclera clear, Mucus Membranes moist. Neck: Supple without masses and tenderness. Resp: Unlabored. Lungs clear to auscultation bilaterally. Heart: Regular Rate and rhythm, normal S1 and S2 without murmur, rub or gallop. Musculoskeletal: Patient on exam does have three jeremiah in place he post eriorly of the left Achilles tenderness skin. I do not appreciate any erythema or induration or who is to staple abscess and no purulent drainage. The surgical incision and sutures are in place and appeared to be healing well and there is no sign of infection no erythema or purulent drainage or swelling or warmth. Patient appears to be neurovascularly intact distally. Motor function intact distally. Extremities: No cyanosis,clubbing or edema. Skin: Warm and Dry. Progress Results/Orders Results/Orders Vital Signs 04/25/25 20:38 Temp 98.2 Pulse 100 Resp 16 B/P (MAP) 163/93 Pulse Ox 98 O2 Flow Rate 0 Medical Decision Making Findings Patient is seen today with complaints of pain of his left heel where there are still jeremiah in place from his midfoot amputation surgery performed about three weeks ago. Patient states he is having some phantom pain and states they are still a few jeremiah in place from the surgery three weeks ago. Patient has no other concern or complaint at this time. He denies any fevers or chills or nausea, vomiting, diarrhea or chest pain or shortness of breath or abdominal pain. Patient will keep appointment with the surgeon on Saturday and a couple of days for re-evaluation and treatment. Three jeremiah were removed today by myself without incident. Patient tolerated well and was grateful. Patient will continue daily wound care as outlined by his surgeon. Return to ED with any worsening, concerning or changing symptoms. Departure Disposition: / SELF CARE / HOMELESS Impression: Primary Impression: Wound Additional Impression: Removal of staple Condition: Improved Discharge Instructions: Sutured Wound Care Additional Instructions: Patient will keep appointment with the surgeon on Saturday and a couple of days for re-evaluation and treatment. Three jeremiah were removed today by myself without incident. Patient tolerated well and was grateful. Patient will continue daily wound care as outlined by his surgeon. Return to ED with any worsening, concerning or changing symptoms. Referrals: NO PRIMARY CARE PROVIDER (PCP) Signature Scribe Signature: No scribe Attestation: No scribe BO VENTURA PAC Apr 25, 2025 21:20
== END 2025-04-25 21:28 | disposition home or self-care (01) ==
LOC: ER 20:14
DX: S91.302A Unspecified open wound, left foot, initial encounter (principal); Z48.02 Encounter for removal of sutures; E11.42 Type 2 diabetes mellitus with diabetic polyneuropathy; E78.00 Pure hypercholesterolemia, unspecified; I10 Essential (primary) hypertension; Z88.1 Allergy status to other antibiotic agents; Z88.2 Allergy status to sulfonamides; Z88.8 Allergy status to other drugs, medicaments and biological substances; X58.XXXA Exposure to other specified factors, initial encounter; Y93.89 Activity, other specified; Y92.89 Other specified places as the place of occurrence of the external cause; Y99.8 Other external cause status
CPT/HCPCS: 99284; A6258; A6449